=== PATIENT | female | born 1980 | race Caucasian/White ===

== ENCOUNTER 2017-01-10 16:34 | Emergency (ER) | payer BC ==
[~2017-01-10] VITALS: Wt 68.0 kg
[~2017-01-10 16:34] MED LIST: ACETAMINOPHEN-H1 TA2 PO; ANAPROX DS550 MG PO; ATARAX,VISTARIL50 MG PO; AZELASTINE HYDRO6 M1 OP; BACTROBAN OINT22 GM PO; BENADRYL50 MG PO; BENTYL10 MG PO; CIPRO250 MG PO; CIPROFLOXACIN500 MG PO; CLINDAMYCIN HC300 MG PO; CLINDAMYCIN300 MG; CYCLOBENZAPRINE5 M3 PO; DARVOCET N 1001 TAB PO; DAYPRO600 M1 PO; FIORICET 325 MG1 TAB PO; FLOMAX0.4 MG PO; Fioricet 325 MG1 TAB PO; Fiorinal,Butalb1 TAB PO; GABAPENTIN400 MG PO; HYDROCODONE BIT1 T11 PO; K-TAB20 MEQ PO; KEFLEX500 MG PO; NORCET 500 MG-51 CAP PO; NORCO 5-325 TA1 EACH PO; NORVASC10 MG PO; NORVASC5 MG PO; Orphenadrine C100 MG PO; PAXIL10 MG PO; PAXIL20 MG PO; PAXIL30 M2 PO; PAXIL40 MG PO; PERCOCET 325 MG1 TA2 PO; PREDNICOT20 MG PO; PREDNISONE10 MG PO; PREDNISONE20 MG PO; ROBAXIN500 M1 PO; TESSALON PERLE200 MG PO; TYLENOL W/CODEI1 TA2 PO; TYLENOL500 MG PO; VALTREX500 MG PO; VIBRAMYCIN100 MG PO; VICODIN 5/500 505 MG PO; VICODIN ES 7501 TAB PO; VIVITROL380 MG PO; ZITHROMAX Z PA250 MG PO; ZOFRAN ODT4 MG SL; ZOFRAN4 MG PO; ZOVIRAX800 MG PO
[2017-01-10 16:50] VITALS: BP 166/97
[2017-01-10] MEDS ORDERED: CIPRO500 MG PO (17:42)
[2017-01-10] MEDS ORDERED: HYDROCODONE BIT1 T11 PO (17:42)
== END 2017-01-10 17:52 | disposition home or self-care (01) ==
LOC: ED 16:34
DX: S71.111A Laceration without foreign body, right thigh, initial encounter (principal); F17.200 Nicotine dependence, unspecified, uncomplicated; Z98.890 Other specified postprocedural states; Z88.0 Allergy status to penicillin; Z88.2 Allergy status to sulfonamides; Z88.6 Allergy status to analgesic agent; Z88.5 Allergy status to narcotic agent; W26.0XXA Contact with knife, initial encounter; Y93.89 Activity, other specified; Y92.89 Other specified places as the place of occurrence of the external cause; Y99.9 Unspecified external cause status

== ENCOUNTER 2017-01-14 22:22 | Emergency (ER) | payer BC ==
[~2017-01-14] VITALS: Ht 170.1 cm; Wt 68.0 kg
[~2017-01-14 22:22] MED LIST changes: +CIPRO500 MG PO
[2017-01-14 22:26] VITALS: BP 151/84
[2017-01-14 23:32] LABS: BASO % 0.2 % (0.0-1.0); EOS # 0.1 10*3/uL (0.0-0.4); EOS % 0.9 % (1.0-4.0); HEMATOCRIT 34.2 % (37.0-47.0); HEMOGLOBIN 11.1 g/dl (12.0-16.0); IG # 0.1 10*3/uL (0.0-0.1); LYMPH # 3.4 10*3/uL (1.3-4.4); LYMPH % 26.2 % (27.0-41.0); MEAN CELL VOLUME 92.2 fl (81.0-99.0); MEAN CORPUSCULAR HGB 29.9 pg (27.0-31.0); MEAN CORPUSCULAR HGB CONC 32.5 g/dl (33.0-37.0); MEAN PLATELET VOLUME 10.1 fl (9.6-12.3); MONO # 0.9 10*3/uL (0.1-1.0); MONO % 7.1 % (3.0-9.0); NEUT # 8.4 10*3/uL (2.3-7.9); NEUT % 65.2 % (47.0-73.0); PLATELET COUNT AUTOMATED 390 10*3/uL (130-400); RED BLOOD COUNT 3.71 10*6/uL (4.10-5.10); RED CELL DISTRI WIDTH 15.2 % (0-14.5); WHITE BLOOD COUNT 12.8 10*3/uL (4.8-10.8)
[2017-01-14 23:48] LABS: ALBUMIN 4.1 gm/dl (3.1-4.5); ALKALINE PHOSPHATASE 69 U/L (45-117); BILIRUBIN, TOTAL 0.2 mg/dl (0.2-1.0); BUN 7 mg/dl (7-24); CARBON DIOXIDE 26 mmol/L (21-32); CHLORIDE 105 mmol/L (98-107); EST GLOM FILT AFRICAN AMERICAN > 60 ml/min; GLUCOSE 88 mg/dL (65-99); POTASSIUM 3.8 mmol/L (3.5-5.1); SGOT/AST 36 IU/L (3-35); SGPT/ALT 32 U/L (12-78); SODIUM 143 mmol/L (136-145); TOTAL PROTEIN 8.2 gm/dL (6.4-8.2)
[2017-01-15] MEDS ORDERED: CLINDAMYCIN HC300 MG PO (01:07)
[2017-01-15] MEDS ORDERED: HYDROCODONE BIT1 T11 PO (01:07)
[2017-01-15 01:30] LABS: LA>2 REFLEX 2 HR DRAW NOW
== END 2017-01-15 01:59 | disposition home or self-care (01) ==
LOC: ED 22:22
PROVIDERS: Physician Assistant
DX: S70.11XA Contusion of right thigh, initial encounter (principal); L02.415 Cutaneous abscess of right lower limb; F17.200 Nicotine dependence, unspecified, uncomplicated; Z88.0 Allergy status to penicillin; Z88.2 Allergy status to sulfonamides; Z88.6 Allergy status to analgesic agent; Z88.8 Allergy status to other drugs, medicaments and biological substances; X58.XXXA Exposure to other specified factors, initial encounter; Y93.89 Activity, other specified; Y92.89 Other specified places as the place of occurrence of the external cause; Y99.9 Unspecified external cause status

== ENCOUNTER → 2017-01-20 | Outpatient (CLI) | payer BC ==
[~2017-01-20] MED LIST changes: +DOXYCYCLINE100 M3 PO; +KEFLEX500 M1 PO; +PERCOCET 325 MG1 TA5 PO
[2017-01-20 17:49] LABS: BASO # 0.1 10*3/uL (0.0-0.1); BASO % 0.3 % (0.0-1.0); EOS # 0.1 10*3/uL (0.0-0.4); EOS % 0.3 % (1.0-4.0); HEMATOCRIT 33.3 % (37.0-47.0); HEMOGLOBIN 10.8 g/dl (12.0-16.0); IG # 0.1 10*3/uL (0.0-0.1); LYMPH # 3.5 10*3/uL (1.3-4.4); LYMPH % 20.7 % (27.0-41.0); MEAN CELL VOLUME 92.5 fl (81.0-99.0); MEAN CORPUSCULAR HGB CONC 32.4 g/dl (33.0-37.0); MEAN PLATELET VOLUME 9.1 fl (9.6-12.3); MONO # 1.1 10*3/uL (0.1-1.0); MONO % 6.8 % (3.0-9.0); NEUT % 71.4 % (47.0-73.0); PLATELET COUNT AUTOMATED 447 10*3/uL (130-400); RED CELL DISTRI WIDTH 14.7 % (0-14.5); WHITE BLOOD COUNT 16.8 10*3/uL (4.8-10.8)
== END | disposition home or self-care (01) ==
LOC: LAB 17:29
PROVIDERS: Family Medicine
DX: S71.131A Puncture wound without foreign body, right thigh, initial encounter (principal); X58.XXXA Exposure to other specified factors, initial encounter; Y93.89 Activity, other specified; Y92.89 Other specified places as the place of occurrence of the external cause; Y99.8 Other external cause status

== ENCOUNTER 2017-01-21 12:50 | Inpatient (IN) | payer BC ==
[~2017-01-21] VITALS: Ht 170.2 cm; Wt 75.4 kg
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
[~2017-01-21 12:50] MED LIST changes: -DOXYCYCLINE100 M3 PO; -KEFLEX500 M1 PO; -PERCOCET 325 MG1 TA5 PO
[2017-01-21 13:00] VITALS: BP 133/90
[2017-01-21 14:03] LABS: BASO # 0.1 10*3/uL (0.0-0.1); BASO % 0.5 % (0.0-1.0); EOS # 0.1 10*3/uL (0.0-0.4); EOS % 0.6 % (1.0-4.0); HEMOGLOBIN 10.4 g/dl (12.0-16.0); IG # 0.1 10*3/uL (0.0-0.1); LYMPH # 3.6 10*3/uL (1.3-4.4); LYMPH % 24.5 % (27.0-41.0); MEAN CELL VOLUME 94.3 fl (81.0-99.0); MEAN CORPUSCULAR HGB 29.7 pg (27.0-31.0); MEAN CORPUSCULAR HGB CONC 31.5 g/dl (33.0-37.0); MEAN PLATELET VOLUME 9.5 fl (9.6-12.3); MONO % 6.7 % (3.0-9.0); NEUT % 67.4 % (47.0-73.0); PLATELET COUNT AUTOMATED 421 10*3/uL (130-400); RED CELL DISTRI WIDTH 14.8 % (0-14.5); WHITE BLOOD COUNT 14.8 10*3/uL (4.8-10.8)
[2017-01-21 14:16] LABS: ALBUMIN 3.8 gm/dl (3.1-4.5); ALKALINE PHOSPHATASE 67 U/L (45-117); BILIRUBIN, TOTAL 0.2 mg/dl (0.2-1.0); BUN 16 mg/dl (7-24); CARBON DIOXIDE 24 mmol/L (21-32); CHLORIDE 107 mmol/L (98-107); EST GLOM FILT AFRICAN AMERICAN > 60 ml/min; GLUCOSE 91 mg/dL (65-99); POTASSIUM 3.7 mmol/L (3.5-5.1); SGOT/AST 17 IU/L (3-35); SGPT/ALT 20 U/L (12-78); SODIUM 138 mmol/L (136-145); TOTAL PROTEIN 7.7 gm/dL (6.4-8.2)
[2017-01-21 16:00] VITALS: BP 138/73
[2017-01-21 20:00] VITALS: BP 127/71
[2017-01-22] VITALS: BP 126/69
[2017-01-22 06:07] LABS: BASO % 0.6 % (0.0-1.0); EOS # 0.2 10*3/uL (0.0-0.4); EOS % 2.7 % (1.0-4.0); HEMATOCRIT 31.8 % (37.0-47.0); HEMOGLOBIN 9.9 g/dl (12.0-16.0); LYMPH # 2.8 10*3/uL (1.3-4.4); LYMPH % 38.5 % (27.0-41.0); MEAN CELL VOLUME 96.4 fl (81.0-99.0); MEAN CORPUSCULAR HGB CONC 31.1 g/dl (33.0-37.0); MEAN PLATELET VOLUME 9.7 fl (9.6-12.3); MONO # 0.9 10*3/uL (0.1-1.0); NEUT # 3.3 10*3/uL (2.3-7.9); NEUT % 45.8 % (47.0-73.0); PLATELET COUNT AUTOMATED 391 10*3/uL (130-400); WHITE BLOOD COUNT 7.2 10*3/uL (4.8-10.8)
[2017-01-22 06:32] LABS: BUN 16 mg/dl (7-24); CARBON DIOXIDE 28 mmol/L (21-32); CHLORIDE 112 mmol/L (98-107); EST GLOM FILT AFRICAN AMERICAN > 60 ml/min; GLUCOSE 93 mg/dL (65-99); MAGNESIUM 1.8 mg/dL (1.5-2.1); PHOSPHOROUS 2.8 mg/dL (2.5-4.9); POTASSIUM 4.5 mmol/L (3.5-5.1); SGOT/AST 12 IU/L (3-35); SGPT/ALT 16 U/L (12-78); SODIUM 145 mmol/L (136-145)
[2017-01-22 06:40] LABS: ALKALINE PHOSPHATASE 54 U/L (45-117); FREE T4 0.69 ng/dl (0.76-1.46); THYROID STIM HORMONE (HS) 0.608 uIU/ml (0.358-4.75); TOTAL PROTEIN 6.2 gm/dL (6.4-8.2)
[2017-01-22 06:43] LABS: BILIRUBIN, TOTAL < 0.1 mg/dl (0.2-1.0)
[2017-01-22 06:56] LABS: INTERNATIONAL NORM RATIO 0.9 (2.0-3.5)
[2017-01-22 08:00] VITALS: BP 116/54
[2017-01-22 08:43] LABS: VITAMIN D, 25-HYDROXY 68.4 ng/mL (30-100)
[2017-01-22 08:44] LABS: FOLIC ACID 5.51 ng/mL (>5.38)
[2017-01-22 12:00] VITALS: BP 127/70
[2017-01-22] MEDS ORDERED: HYDROCODONE BIT1 T11 PO (12:51)
[2017-01-22] MEDS ORDERED: DOXYCYCLINE100 M3 PO (12:51)
[2017-01-22] MEDS ORDERED: KEFLEX500 M1 PO (12:51)
[2017-01-22] MEDS ORDERED: PERCOCET 325 MG1 TA5 PO (12:54)
== END 2017-01-22 13:20 | disposition home or self-care (01) | DRG 872 ==
LOC: 4E 12:50
PROVIDERS: Internal Medicine
DX: A41.9 Sepsis, unspecified organism (principal); L03.113 Cellulitis of right upper limb; D64.9 Anemia, unspecified; F17.200 Nicotine dependence, unspecified, uncomplicated; G89.29 Other chronic pain; X58.XXXA Exposure to other specified factors, initial encounter; M54.9 Dorsalgia, unspecified; S71.111D Laceration without foreign body, right thigh, subsequent encounter; Z88.0 Allergy status to penicillin; Z88.2 Allergy status to sulfonamides; Z79.899 Other long term (current) drug therapy; Z88.6 Allergy status to analgesic agent; Z88.8 Allergy status to other drugs, medicaments and biological substances; Y93.89 Activity, other specified; Y92.89 Other specified places as the place of occurrence of the external cause; Y99.9 Unspecified external cause status

== ENCOUNTER 2017-01-27 20:10 | Inpatient (IN) | payer BC ==
[~2017-01-27] VITALS: Ht 167.6 cm; Wt 74.0 kg
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
[~2017-01-27 20:10] MED LIST changes: -IBU800 MG PO
[2017-01-27 20:42] VITALS: BP 151/99
[2017-01-27 21:12] LABS: BASO % 0.2 % (0.0-1.0); EOS # 0.1 10*3/uL (0.0-0.4); EOS % 0.3 % (1.0-4.0); HEMATOCRIT 33.9 % (37.0-47.0); IG # 0.1 10*3/uL (0.0-0.1); LYMPH # 3.6 10*3/uL (1.3-4.4); LYMPH % 21.8 % (27.0-41.0); MEAN CELL VOLUME 92.1 fl (81.0-99.0); MEAN CORPUSCULAR HGB 29.9 pg (27.0-31.0); MEAN CORPUSCULAR HGB CONC 32.4 g/dl (33.0-37.0); MEAN PLATELET VOLUME 9.7 fl (9.6-12.3); MONO # 1.1 10*3/uL (0.1-1.0); MONO % 6.4 % (3.0-9.0); NEUT # 11.8 10*3/uL (2.3-7.9); PLATELET COUNT AUTOMATED 491 10*3/uL (130-400); RED BLOOD COUNT 3.68 10*6/uL (4.10-5.10); RED CELL DISTRI WIDTH 14.7 % (0-14.5); WHITE BLOOD COUNT 16.6 10*3/uL (4.8-10.8)
[2017-01-27 21:29] LABS: ALBUMIN 4.2 gm/dl (3.1-4.5); ALKALINE PHOSPHATASE 69 U/L (45-117); BILIRUBIN, TOTAL 0.2 mg/dl (0.2-1.0); BUN 10 mg/dl (7-24); CARBON DIOXIDE 24 mmol/L (21-32); CHLORIDE 105 mmol/L (98-107); EST GLOM FILT AFRICAN AMERICAN > 60 ml/min; GLUCOSE 83 mg/dL (65-99); POTASSIUM 3.5 mmol/L (3.5-5.1); SGOT/AST 12 IU/L (3-35); SGPT/ALT 16 U/L (12-78); SODIUM 139 mmol/L (136-145); TOTAL PROTEIN 8.2 gm/dL (6.4-8.2)
[2017-01-27 22:33] VITALS: BP 128/67
[2017-01-27 23:38] VITALS: BP 118/74
[2017-01-28 07:10] LABS: BASO % 0.4 % (0.0-1.0); EOS # 0.2 10*3/uL (0.0-0.4); EOS % 1.7 % (1.0-4.0); HEMATOCRIT 34.5 % (37.0-47.0); HEMOGLOBIN 10.9 g/dl (12.0-16.0); LYMPH # 2.6 10*3/uL (1.3-4.4); LYMPH % 26.2 % (27.0-41.0); MEAN CELL VOLUME 93.5 fl (81.0-99.0); MEAN CORPUSCULAR HGB 29.5 pg (27.0-31.0); MEAN CORPUSCULAR HGB CONC 31.6 g/dl (33.0-37.0); MEAN PLATELET VOLUME 9.7 fl (9.6-12.3); MONO % 10.1 % (3.0-9.0); NEUT % 61.2 % (47.0-73.0); PLATELET COUNT AUTOMATED 454 10*3/uL (130-400); RED BLOOD COUNT 3.69 10*6/uL (4.10-5.10); RED CELL DISTRI WIDTH 14.7 % (0-14.5); WHITE BLOOD COUNT 9.7 10*3/uL (4.8-10.8)
[2017-01-28 07:43] LABS: ALBUMIN 3.4 gm/dl (3.1-4.5); ALKALINE PHOSPHATASE 63 U/L (45-117); BILIRUBIN, TOTAL 0.3 mg/dl (0.2-1.0); BUN 8 mg/dl (7-24); CARBON DIOXIDE 26 mmol/L (21-32); CHLORIDE 108 mmol/L (98-107); EST GLOM FILT AFRICAN AMERICAN > 60 ml/min; GLUCOSE 87 mg/dL (65-99); MAGNESIUM 1.9 mg/dL (1.5-2.1); PHOSPHOROUS 2.8 mg/dL (2.5-4.9); POTASSIUM 3.9 mmol/L (3.5-5.1); SGOT/AST 15 IU/L (3-35); SGPT/ALT 15 U/L (12-78); SODIUM 138 mmol/L (136-145)
[2017-01-28 07:54] LABS: PROTHROMBIN TIME 10.6 SECONDS (9.0-12.4)
[2017-01-28 08:00] VITALS: BP 119/68
[2017-01-28 12:00] VITALS: BP 125/56
[2017-01-28 16:00] VITALS: BP 134/72
[2017-01-28] MEDS ORDERED: KEFLEX500 M1 PO (17:05)
[2017-01-28] MEDS ORDERED: DOXYCYCLINE100 M3 PO (17:05)
[2017-01-28 20:00] VITALS: BP 121/61
[2017-01-29] VITALS: BP 126/71
[2017-01-29 08:00] VITALS: BP 120/69
[2017-01-29] MEDS ORDERED: IBU800 MG PO (10:38)
== END 2017-01-29 11:24 | disposition home or self-care (01) | DRG 872 ==
LOC: ED 20:10 → EDHOLD 22:14 → 5E 22:14
PROVIDERS: Nurse Practitioner Family; Student in an Organized Health Care Education/Training Program
DX: A41.9 Sepsis, unspecified organism (principal); L97.919 Non-pressure chronic ulcer of unspecified part of right lower leg with unspecified severity; B02.30 Zoster ocular disease, unspecified; L03.115 Cellulitis of right lower limb; S81.819A Laceration without foreign body, unspecified lower leg, initial encounter; D64.9 Anemia, unspecified; F17.210 Nicotine dependence, cigarettes, uncomplicated; B95.61 Methicillin susceptible Staphylococcus aureus infection as the cause of diseases classified elsewhere; D47.3 Essential (hemorrhagic) thrombocythemia; M54.16 Radiculopathy, lumbar region; W26.8XXA Contact with other sharp object(s), not elsewhere classified, initial encounter; Y93.89 Activity, other specified; Y92.89 Other specified places as the place of occurrence of the external cause; Y99.8 Other external cause status; Z71.6 Tobacco abuse counseling; Z88.6 Allergy status to analgesic agent; Z87.442 Personal history of urinary calculi; Z88.0 Allergy status to penicillin; Z88.2 Allergy status to sulfonamides; Z88.5 Allergy status to narcotic agent; Z79.899 Other long term (current) drug therapy

== ENCOUNTER → 2017-01-27 | Outpatient (CLI) | payer BC ==
[~2017-01-27] MED LIST changes: +DOXYCYCLINE100 M3 PO; +IBU800 MG PO; +KEFLEX500 M1 PO; +PERCOCET 325 MG1 TA5 PO
[2017-01-27 15:05] LABS: HEMOGLOBIN 11.2 g/dl (12.0-16.0); MEAN CELL VOLUME 92.1 fl (81.0-99.0); MEAN CORPUSCULAR HGB 29.5 pg (27.0-31.0); MEAN PLATELET VOLUME 9.2 fl (9.6-12.3); RED BLOOD COUNT 3.8 10*6/uL (4.10-5.10)
[2017-01-27 15:20] LABS: ALBUMIN 4.2 gm/dl (3.1-4.5); ALKALINE PHOSPHATASE 69 U/L (45-117); BILIRUBIN, DIRECT < 0.1 mg/dL (0.0-0.2); BILIRUBIN, TOTAL 0.2 mg/dl (0.2-1.0); BUN 12 mg/dl (7-24); CARBON DIOXIDE 26 mmol/L (21-32); CHLORIDE 108 mmol/L (98-107); EST GLOM FILT AFRICAN AMERICAN > 60 ml/min; GLUCOSE 85 mg/dL (65-99); POTASSIUM 4.3 mmol/L (3.5-5.1); SGOT/AST 14 IU/L (3-35); SGPT/ALT 17 U/L (12-78); SODIUM 142 mmol/L (136-145); TOTAL PROTEIN 8.2 gm/dL (6.4-8.2)
== END | disposition home or self-care (01) ==
LOC: LAB 14:46
PROVIDERS: Family Medicine
DX: L03.115 Cellulitis of right lower limb (principal)

== ENCOUNTER 2017-02-24 11:35 | Emergency (ER) | payer BC ==
[~2017-02-24] VITALS: Ht 167.6 cm; Wt 68.0 kg
[~2017-02-24 11:35] MED LIST changes: +IBU800 MG PO
[2017-02-24 11:42] VITALS: BP 125/71
[2017-02-24] MEDS ORDERED: CLINDAMYCIN150 MG PO (11:42)
[2017-02-24 12:15] LABS: BILIRUBIN NEGATIVE (NEGATIVE); BLOOD 3+ (NEGATIVE); CLARITY SL CLOUDY (CLEAR); COLOR RED (YELLOW); GLUCOSE NEGATIVE (NEGATIVE); KETONE NEGATIVE (NEGATIVE); LEUKO ESTERASE NEGATIVE (NEGATIVE); NITRITE NEGATIVE (NEGATIVE); PH 6.5 (5.0-9.0); PROTEIN NEGATIVE (NEGATIVE); SPECIFIC GRAVITY <= 1.005 (1.005-1.030); UROBILINOGEN 0.2 E.U./dl (0.2-1.0)
[2017-02-24 12:24] LABS: RBC TNTC rbc/hpf (0-2); URINE REFLEX COMMENT YES (NO)
[2017-02-24 12:28] LABS: BASO % 0.4 % (0.0-1.0); EOS % 0.2 % (1.0-4.0); HEMATOCRIT 34.6 % (37.0-47.0); HEMOGLOBIN 11.1 g/dl (12.0-16.0); LYMPH # 2.7 10*3/uL (1.3-4.4); LYMPH % 24.5 % (27.0-41.0); MEAN CELL VOLUME 90.6 fl (81.0-99.0); MEAN CORPUSCULAR HGB 29.1 pg (27.0-31.0); MEAN CORPUSCULAR HGB CONC 32.1 g/dl (33.0-37.0); MEAN PLATELET VOLUME 9.5 fl (9.6-12.3); MONO # 0.5 10*3/uL (0.1-1.0); MONO % 4.3 % (3.0-9.0); NEUT # 7.9 10*3/uL (2.3-7.9); NEUT % 70.2 % (47.0-73.0); PLATELET COUNT AUTOMATED 421 10*3/uL (130-400); RED BLOOD COUNT 3.82 10*6/uL (4.10-5.10); RED CELL DISTRI WIDTH 14.1 % (0-14.5); WHITE BLOOD COUNT 11.2 10*3/uL (4.8-10.8)
[2017-02-24 12:40] LABS: URINE AMPHETAMINES < 1000 (1000ng/ml); URINE BARBITURATES < 200 (200ng/ml); URINE COCAINE < 300 (300ng/ml)
[2017-02-24 12:42] LABS: ALBUMIN 4.1 gm/dl (3.1-4.5); ALKALINE PHOSPHATASE 62 U/L (45-117); BILIRUBIN, TOTAL 0.2 mg/dl (0.2-1.0); BUN 9 mg/dl (7-24); CARBON DIOXIDE 26 mmol/L (21-32); CHLORIDE 111 mmol/L (98-107); EST GLOM FILT AFRICAN AMERICAN > 60 ml/min; GLUCOSE 89 mg/dL (65-99); POTASSIUM 3.8 mmol/L (3.5-5.1); SGOT/AST 12 IU/L (3-35); SGPT/ALT 15 U/L (12-78); SODIUM 142 mmol/L (136-145); TOTAL PROTEIN 8.1 gm/dL (6.4-8.2)
== END 2017-02-24 14:25 | disposition home or self-care (01) ==
LOC: ED 11:35
PROVIDERS: Registered Nurse
DX: R31.9 Hematuria, unspecified (principal); R10.30 Lower abdominal pain, unspecified; F17.200 Nicotine dependence, unspecified, uncomplicated; Z87.442 Personal history of urinary calculi; Z88.0 Allergy status to penicillin; Z88.2 Allergy status to sulfonamides; Z88.6 Allergy status to analgesic agent; Z88.8 Allergy status to other drugs, medicaments and biological substances

== ENCOUNTER 2017-03-12 13:26 | Emergency (ER) | payer BC ==
[~2017-03-12] VITALS: Wt 68.0 kg
[~2017-03-12 13:26] MED LIST changes: +CLINDAMYCIN150 MG PO
[2017-03-12 14:15] VITALS: BP 93/67
[2017-03-12 14:40] LABS: BASO % 0.4 % (0.0-1.0); EOS % 0.2 % (1.0-4.0); HEMATOCRIT 32.1 % (37.0-47.0); HEMOGLOBIN 10.2 g/dl (12.0-16.0); LYMPH % 21.2 % (27.0-41.0); MEAN CELL VOLUME 92.2 fl (81.0-99.0); MEAN CORPUSCULAR HGB 29.3 pg (27.0-31.0); MEAN CORPUSCULAR HGB CONC 31.8 g/dl (33.0-37.0); MEAN PLATELET VOLUME 9.2 fl (9.6-12.3); MONO # 0.8 10*3/uL (0.1-1.0); MONO % 8.6 % (3.0-9.0); NEUT # 6.6 10*3/uL (2.3-7.9); NEUT % 69.3 % (47.0-73.0); PLATELET COUNT AUTOMATED 371 10*3/uL (130-400); RED BLOOD COUNT 3.48 10*6/uL (4.10-5.10); RED CELL DISTRI WIDTH 14.4 % (0-14.5); WHITE BLOOD COUNT 9.5 10*3/uL (4.8-10.8)
[2017-03-12 14:55] LABS: BUN 10 mg/dl (7-24); CARBON DIOXIDE 20 mmol/L (21-32); CHLORIDE 114 mmol/L (98-107); EST GLOM FILT AFRICAN AMERICAN > 60 ml/min; GLUCOSE 87 mg/dL (65-99); POTASSIUM 3.2 mmol/L (3.5-5.1); SODIUM 146 mmol/L (136-145)
[2017-03-12 15:12] LABS: BILIRUBIN NEGATIVE (NEGATIVE); BLOOD TRACE-LYSED (NEGATIVE); CLARITY CLEAR (CLEAR); COLOR YELLOW (YELLOW); GLUCOSE NEGATIVE (NEGATIVE); KETONE NEGATIVE (NEGATIVE); LEUKO ESTERASE NEGATIVE (NEGATIVE); NITRITE NEGATIVE (NEGATIVE); PROTEIN NEGATIVE (NEGATIVE); SPECIFIC GRAVITY <= 1.005 (1.005-1.030); UROBILINOGEN 0.2 E.U./dl (0.2-1.0)
[2017-03-12 15:21] LABS: BACTERIA TRACE; URINE AMPHETAMINES < 1000 (1000ng/ml); URINE BARBITURATES < 200 (200ng/ml); URINE COCAINE < 300 (300ng/ml); URINE REFLEX COMMENT NO (NO)
== END 2017-03-12 15:51 ==
LOC: ED 13:26
PROVIDERS: Emergency Medicine
DX: Z00.8 Encounter for other general examination (principal); Z88.0 Allergy status to penicillin; Z88.2 Allergy status to sulfonamides; Z88.6 Allergy status to analgesic agent; Z88.8 Allergy status to other drugs, medicaments and biological substances

== ENCOUNTER 2018-07-05 10:22 | Emergency (ER) | payer BC ==
[~2018-07-05] VITALS: Ht 170.1 cm; Wt 68.0 kg
[2018-07-05 10:24] VITALS: BP 162/83
== END 2018-07-05 11:06 | disposition left against medical advice (07) ==
LOC: ED 10:22
DX: S00.11XA Contusion of right eyelid and periocular area, initial encounter (principal); Z88.0 Allergy status to penicillin; Z88.2 Allergy status to sulfonamides; Z79.82 Long term (current) use of aspirin; Z88.5 Allergy status to narcotic agent; Z88.6 Allergy status to analgesic agent; Z79.899 Other long term (current) drug therapy; Y04.0XXA Assault by unarmed brawl or fight, initial encounter; Y93.89 Activity, other specified; Y92.89 Other specified places as the place of occurrence of the external cause; Y99.8 Other external cause status

== ENCOUNTER 2018-08-18 10:22 | Emergency (ER) | payer BC, OTHER ==
[~2018-08-18] VITALS: Ht 170.1 cm; Wt 68.0 kg
[2018-08-18 10:24] VITALS: BP 148/78
[2018-08-18] MEDS ORDERED: LIDEX 0.05% CRE15 GM T (10:41)
== END 2018-08-18 11:05 | disposition home or self-care (01) ==
LOC: ED 10:22
DX: L30.9 Dermatitis, unspecified (principal); M54.2 Cervicalgia; F17.200 Nicotine dependence, unspecified, uncomplicated; Z88.0 Allergy status to penicillin; Z88.2 Allergy status to sulfonamides; Z88.6 Allergy status to analgesic agent; Z88.8 Allergy status to other drugs, medicaments and biological substances

== ENCOUNTER 2018-09-06 07:55 | Emergency (ER) | payer BC, OTHER ==
[~2018-09-06] VITALS: Ht 170.1 cm; Wt 68.0 kg
[2018-09-06 07:55] VITALS: BP 121/62
[~2018-09-06 07:55] MED LIST changes: +LIDEX 0.05% CRE15 GM T
[2018-09-06] MEDS ORDERED: CHANTIX1 M1 PO (08:17)
[2018-09-06] MEDS ORDERED: TEMOVATE30 GM T (08:17)
== END 2018-09-06 08:30 | disposition home or self-care (01) ==
LOC: ED 07:55
DX: L30.9 Dermatitis, unspecified (principal); F17.210 Nicotine dependence, cigarettes, uncomplicated; Z88.2 Allergy status to sulfonamides; Z88.6 Allergy status to analgesic agent; Z88.0 Allergy status to penicillin; Z88.8 Allergy status to other drugs, medicaments and biological substances; Z88.5 Allergy status to narcotic agent; Z79.899 Other long term (current) drug therapy

== ENCOUNTER 2018-12-27 15:44 | Emergency (ER) | payer OTHER ==
[~2018-12-27] VITALS: Ht 167.6 cm; Wt 63.5 kg
[~2018-12-27 15:44] MED LIST changes: +CHANTIX1 M1 PO; +TEMOVATE30 GM T
[2018-12-27 16:11] LABS: BASO # 0.1 10*3/uL (0.0-0.1); BASO % 0.4 % (0.0-1.0); EOS # 0.1 10*3/uL (0.0-0.4); EOS % 0.7 % (1.0-4.0); HEMOGLOBIN 10.5 g/dl (12.0-16.0); LYMPH # 4.3 10*3/uL (1.3-4.4); LYMPH % 30.4 % (27.0-41.0); MEAN CELL VOLUME 82.7 fl (81.0-99.0); MEAN CORPUSCULAR HGB 25.5 pg (27.0-31.0); MEAN CORPUSCULAR HGB CONC 30.9 g/dl (33.0-37.0); MEAN PLATELET VOLUME 9.8 fl (9.6-12.3); MONO # 0.9 10*3/uL (0.1-1.0); MONO % 6.4 % (3.0-9.0); NEUT # 8.6 10*3/uL (2.3-7.9); NEUT % 61.7 % (47.0-73.0); PLATELET COUNT AUTOMATED 421 10*3/uL (130-400); RED BLOOD COUNT 4.11 10*6/uL (4.10-5.10); RED CELL DISTRI WIDTH 19.8 % (0-14.5)
[2018-12-27 16:19] LABS: ACT PARTIAL THROMBO TIME 21.7 SECONDS (20.8-31.5)
[2018-12-27 16:31] LABS: BUN 10 mg/dl (7-24); CHLORIDE 105 mmol/L (98-107); SODIUM 142 mmol/L (136-145)
[2018-12-27 16:42] LABS: THYROID STIM HORMONE (HS) 0.938 uIU/ml (0.358-4.75)
[2018-12-27 18:09] VITALS: BP 118/70
[2018-12-27 18:15] LABS: BILIRUBIN NEGATIVE (NEGATIVE); BLOOD NEGATIVE (NEGATIVE); CLARITY CLOUDY (CLEAR); COLOR YELLOW (YELLOW); GLUCOSE NEGATIVE (NEGATIVE); KETONE NEGATIVE (NEGATIVE); LEUKO ESTERASE NEGATIVE (NEGATIVE); NITRITE NEGATIVE (NEGATIVE); UROBILINOGEN 0.2 E.U./dl (0.2-1.0)
[2018-12-27 18:21] LABS: BACTERIA 1+; EPITHELIAL CELLS 31-40
== END 2018-12-27 19:47 | disposition home or self-care (01) ==
LOC: ED 15:44
PROVIDERS: Emergency Medicine
DX: R51 Headache (principal); H53.8 Other visual disturbances; E87.6 Hypokalemia; F17.200 Nicotine dependence, unspecified, uncomplicated; Z98.890 Other specified postprocedural states; Z88.0 Allergy status to penicillin; Z88.2 Allergy status to sulfonamides; Z88.6 Allergy status to analgesic agent; Z88.8 Allergy status to other drugs, medicaments and biological substances; Z79.899 Other long term (current) drug therapy

== ENCOUNTER 2019-01-18 12:03 | Emergency (ER) | payer OTHER ==
[~2019-01-18] VITALS: Ht 167.6 cm; Wt 68.0 kg
[2019-01-18 13:30] VITALS: BP 132/69
== END 2019-01-18 13:45 | disposition left against medical advice (07) ==
LOC: ED 12:03
DX: R51 Headache (principal); F17.200 Nicotine dependence, unspecified, uncomplicated; Z88.0 Allergy status to penicillin; Z88.2 Allergy status to sulfonamides; Z88.6 Allergy status to analgesic agent; Z88.8 Allergy status to other drugs, medicaments and biological substances

== ENCOUNTER 2019-03-17 19:30 | Emergency (ER) | payer OTHER ==
[~2019-03-17] VITALS: Ht 170.1 cm; Wt 68.0 kg
[2019-03-17 20:00] LABS: BASO # 0.1 10*3/uL (0.0-0.1); BASO % 0.6 % (0.0-1.0); EOS # 0.4 10*3/uL (0.0-0.4); EOS % 3.6 % (1.0-4.0); HEMOGLOBIN 10.1 g/dl (12.0-16.0); LYMPH # 3.4 10*3/uL (1.3-4.4); LYMPH % 28.8 % (27.0-41.0); MEAN CELL VOLUME 86.8 fl (81.0-99.0); MEAN CORPUSCULAR HGB 26.6 pg (27.0-31.0); MEAN CORPUSCULAR HGB CONC 30.6 g/dl (33.0-37.0); MEAN PLATELET VOLUME 9.9 fl (9.6-12.3); MONO # 1.2 10*3/uL (0.1-1.0); MONO % 9.6 % (3.0-9.0); NEUT # 6.8 10*3/uL (2.3-7.9); NEUT % 57.1 % (47.0-73.0); PLATELET COUNT AUTOMATED 383 10*3/uL (130-400); RED CELL DISTRI WIDTH 16.8 % (0-14.5); WHITE BLOOD COUNT 11.9 10*3/uL (4.8-10.8)
[2019-03-17 20:10] VITALS: BP 144/65
[2019-03-17 20:15] LABS: ALBUMIN 3.9 gm/dl (3.1-4.5); ALKALINE PHOSPHATASE 65 U/L (45-117); BUN 15 mg/dl (7-24); CHLORIDE 108 mmol/L (98-107); CREATININE 0.81 mg/dL (0.55-1.02); POTASSIUM 3.3 mmol/L (3.5-5.1); SGOT/AST 11 IU/L (3-35); SGPT/ALT 15 U/L (12-78); SODIUM 141 mmol/L (136-145); TOTAL PROTEIN 7.3 gm/dL (6.4-8.2)
[2019-03-17] MEDS ORDERED: Fioricet 325 MG1 TAB PO (22:23)
== END 2019-03-17 22:19 | disposition home or self-care (01) ==
LOC: ED 19:30
PROVIDERS: Emergency Medicine Emergency Medical Services
DX: G43.909 Migraine, unspecified, not intractable, without status migrainosus (principal); R55 Syncope and collapse; R42 Dizziness and giddiness; R41.0 Disorientation, unspecified

== ENCOUNTER 2019-06-24 15:44 | Emergency (ER) | payer OTHER ==
[~2019-06-24] VITALS: Wt 81.6 kg
[2019-06-24 16:38] LABS: BASO % 0.3 % (0.0-1.0); EOS # 0.3 10*3/uL (0.0-0.4); HEMATOCRIT 33.6 % (37.0-47.0); HEMOGLOBIN 10.6 g/dl (12.0-16.0); LYMPH # 3.3 10*3/uL (1.3-4.4); LYMPH % 22.9 % (27.0-41.0); MEAN CELL VOLUME 84.4 fl (81.0-99.0); MEAN CORPUSCULAR HGB 26.6 pg (27.0-31.0); MEAN CORPUSCULAR HGB CONC 31.5 g/dl (33.0-37.0); MEAN PLATELET VOLUME 10.9 fl (9.6-12.3); MONO # 0.9 10*3/uL (0.1-1.0); MONO % 6.1 % (3.0-9.0); NEUT # 9.8 10*3/uL (2.3-7.9); NEUT % 68.3 % (47.0-73.0); PLATELET COUNT AUTOMATED 577 10*3/uL (130-400); RED BLOOD COUNT 3.98 10*6/uL (4.10-5.10); WHITE BLOOD COUNT 14.4 10*3/uL (4.8-10.8)
[2019-06-24 16:47] VITALS: BP 110/52
[2019-06-24 17:17] LABS: ACT PARTIAL THROMBO TIME 24.3 SECONDS (20.0-32.1); INTERNATIONAL NORM RATIO 0.9 (2.0-3.5)
[2019-06-24 17:39] LABS: BILIRUBIN NEGATIVE (NEGATIVE); BLOOD 3+ (NEGATIVE); CLARITY CLOUDY (CLEAR); COLOR YELLOW (YELLOW); GLUCOSE NEGATIVE (NEGATIVE); KETONE TRACE (NEGATIVE); LEUKO ESTERASE NEGATIVE (NEGATIVE); NITRITE NEGATIVE (NEGATIVE); UROBILINOGEN 0.2 E.U./dl (0.2-1.0)
[2019-06-24 17:46] LABS: EPITHELIAL CELLS 41-50; RBC 51-100 rbc/hpf (0-2)
[2019-06-24 18:05] LABS: ALBUMIN 3.2 gm/dl (3.1-4.5); ALKALINE PHOSPHATASE 69 U/L (45-117); BUN 11 mg/dl (7-24); CHLORIDE 108 mmol/L (98-107); CREATININE 0.68 mg/dL (0.55-1.02); LIPASE 103 U/L (73-393); POTASSIUM 3.1 mmol/L (3.5-5.1); SGOT/AST 8 IU/L (3-35); SGPT/ALT 16 U/L (12-78); SODIUM 142 mmol/L (136-145)
[2019-06-24 18:07] LABS: TROPONIN I < 0.015 ng/ml (<0.045)
== END 2019-06-24 19:10 | disposition home or self-care (01) ==
LOC: ED 15:44
PROVIDERS: Physician Assistant
DX: R07.89 Other chest pain (principal); F17.200 Nicotine dependence, unspecified, uncomplicated; Z88.0 Allergy status to penicillin; Z88.2 Allergy status to sulfonamides; Z88.6 Allergy status to analgesic agent; Z88.8 Allergy status to other drugs, medicaments and biological substances

== ENCOUNTER 2019-07-22 00:18 | Emergency (ER) | payer OTHER ==
[~2019-07-22] VITALS: Ht 170.1 cm; Wt 74.8 kg
[2019-07-22 00:21] VITALS: BP 107/65
[2019-07-22 01:38] LABS: BASO % 0.4 % (0.0-1.0); EOS # 0.3 10*3/uL (0.0-0.4); EOS % 2.6 % (1.0-4.0); HEMATOCRIT 29.9 % (37.0-47.0); HEMOGLOBIN 9.2 g/dl (12.0-16.0); LYMPH % 30.5 % (27.0-41.0); MEAN CELL VOLUME 83.3 fl (81.0-99.0); MEAN CORPUSCULAR HGB 25.6 pg (27.0-31.0); MEAN CORPUSCULAR HGB CONC 30.8 g/dl (33.0-37.0); MEAN PLATELET VOLUME 10.5 fl (9.6-12.3); MONO # 0.9 10*3/uL (0.1-1.0); NEUT # 5.7 10*3/uL (2.3-7.9); NEUT % 57.2 % (47.0-73.0); PLATELET COUNT AUTOMATED 433 10*3/uL (130-400); RED BLOOD COUNT 3.59 10*6/uL (4.10-5.10); RED CELL DISTRI WIDTH 15.9 % (0-14.5); WHITE BLOOD COUNT 9.9 10*3/uL (4.8-10.8)
[2019-07-22 01:54] LABS: ALBUMIN 3.6 gm/dl (3.1-4.5); ALKALINE PHOSPHATASE 74 U/L (45-117); BUN 15 mg/dl (7-24); CHLORIDE 110 mmol/L (98-107); CREATININE 0.61 mg/dL (0.55-1.02); LIPASE 91 U/L (73-393); POTASSIUM 3.4 mmol/L (3.5-5.1); SGOT/AST 12 IU/L (3-35); SGPT/ALT 16 U/L (12-78); SODIUM 143 mmol/L (136-145)
[2019-07-22 01:59] LABS: BETA-HCG, QUANT < 1.0 mIU/mL (1-3)
[2019-07-22] MEDS ORDERED: HYDROXYZINE PAM25 MG PO (02:44)
[2019-07-22] MEDS ORDERED: MIRTAZAPINE30 M2 PO (18:09)
[2019-07-22] MEDS ORDERED: ABILIFY5 MG PO (18:09)
[2019-07-23] MEDS ORDERED: NEURONTIN800 MG PO (09:20)
[2019-07-23] MEDS ORDERED: MILK OF MA400 MG/52 PO (09:22)
== END 2019-07-22 03:06 | disposition home or self-care (01) ==
LOC: ED 00:18
PROVIDERS: Emergency Medicine Emergency Medical Services
DX: B80 Enterobiasis (principal); F41.9 Anxiety disorder, unspecified; D50.9 Iron deficiency anemia, unspecified; F17.200 Nicotine dependence, unspecified, uncomplicated; G43.909 Migraine, unspecified, not intractable, without status migrainosus; Z88.0 Allergy status to penicillin; Z88.2 Allergy status to sulfonamides; Z88.6 Allergy status to analgesic agent; Z88.8 Allergy status to other drugs, medicaments and biological substances

== ENCOUNTER 2019-07-22 14:40 | Inpatient (IN) | payer OTHER ==
[~2019-07-22] VITALS: Ht 170.1 cm; Wt 83.0 kg
[~2019-07-22 14:40] MED LIST changes: +HYDROXYZINE PAM25 MG PO
[2019-07-22 14:41] VITALS: BP 130/87
[2019-07-22 15:23] LABS: BASO # 0.1 10*3/uL (0.0-0.1); BASO % 0.6 % (0.0-1.0); EOS # 0.2 10*3/uL (0.0-0.4); EOS % 1.5 % (1.0-4.0); HEMATOCRIT 32.8 % (37.0-47.0); HEMOGLOBIN 9.9 g/dl (12.0-16.0); LYMPH # 3.4 10*3/uL (1.3-4.4); LYMPH % 31.3 % (27.0-41.0); MEAN CELL VOLUME 84.1 fl (81.0-99.0); MEAN CORPUSCULAR HGB 25.4 pg (27.0-31.0); MEAN CORPUSCULAR HGB CONC 30.2 g/dl (33.0-37.0); MEAN PLATELET VOLUME 10.8 fl (9.6-12.3); MONO # 0.7 10*3/uL (0.1-1.0); MONO % 6.6 % (3.0-9.0); NEUT # 6.5 10*3/uL (2.3-7.9); NEUT % 59.5 % (47.0-73.0); PLATELET COUNT AUTOMATED 485 10*3/uL (130-400); RED CELL DISTRI WIDTH 15.9 % (0-14.5); WHITE BLOOD COUNT 10.9 10*3/uL (4.8-10.8)
[2019-07-22 15:52] LABS: ALKALINE PHOSPHATASE 84 U/L (45-117); BUN 12 mg/dl (7-24); CHLORIDE 107 mmol/L (98-107); CREATININE 0.67 mg/dL (0.55-1.02); ETHYL ALCOHOL < 3.0 mg/dl (<3); POTASSIUM 3.4 mmol/L (3.5-5.1); SGOT/AST 8 IU/L (3-35); SGPT/ALT 17 U/L (12-78); SODIUM 139 mmol/L (136-145); TOTAL PROTEIN 7.7 gm/dL (6.4-8.2)
[2019-07-22 16:05] VITALS: BP 124/74
--- NOTE | 2019-07-22 16:11 | NUR ---
PT REMAINS W/O ACUTE DISTRESS NOTED AWAITING ALL RESULTS FOR ADDITIONAL PLAN OF CARE,SAFETY PRECAUTIONS INTACT AND CALL LIGHT WITHIN REACH.VSS AND WILL CONTINUE TO MONITOR.
--- NOTE | 2019-07-22 16:43 | NUR ---
PT RUBBING AND GRABBING NECK MULTIPLE TIMES DURING EVALUATIONS,RED BLANCHABLE AREAS NOTED TO NECK AN UPPER CHEST,NO ITCHING OR RESP DIFFICULTIES NOTED.
--- NOTE | 2019-07-22 16:50 | NUR ---
PT STATING "I STILL CAN'T PEE SO THEY CAN GET IT(URINE)UPSTAIRS". NURSING STAFF MADE AWARE.
--- NOTE | 2019-07-22 17:15 | NUR ---
A 38, admitted to 4E, under the services of FABIANA Rios DO with a diagnosis of SORE THROAT. Chief complaint is SORE THROAT, WORM INFECTION. Patient arrived via ambulatory from ER. Monitor applied. Initial assessment completed. Vital signs taken and recorded. FABIANA RIOS DO notified of admission to the unit. Orders received. See assessment for past medical history, medications and allergies. Patient and/or family oriented to unit. [facility] visitation policy reviewed. Clothing/patient valuable form completed. ANDREA RUIZ
[2019-07-22] MEDS ORDERED: ABILIFY5 MG PO (18:09)
[2019-07-22] MEDS ORDERED: MIRTAZAPINE30 M2 PO (18:09)
[2019-07-22 20:00] VITALS: BP 120/71
--- NOTE | 2019-07-22 21:13 | NUR ---
NORCO GIVEN FOR PAIN AT 06/05. RESTORIL GIVEN PER PATIENT REQUEST FOR INSOMNIA. WILL ASSESS EFFECTIVENESS.
--- NOTE | 2019-07-22 22:10 | NUR ---
NORCO EFFECTIVE PER PATIENT. WILL CONTINUE TO MONITOR.
[2019-07-23] VITALS: BP 122/72
--- NOTE | 2019-07-23 03:14 | NUR ---
NORCO GIVEN PER PATIENT REQUEST FOR HEADACHE RATED 8/10. WILL ASSESS EFFECTIVENESS.
--- NOTE | 2019-07-23 04:48 | NUR ---
PATIENT COMPLAINED OF PAIN BEHINDHER LEFT EYE STATING ITS "THE WORST PAIN SHES EVER EXPERIENCED". PATIENT STATED NORCO WAS NOT EFFECTIVE. NOTIFIED DR BERNSTEIN. ORDERS RECIEVED TO ORDER 1 MG OF DILAUDID NOW.
--- NOTE | 2019-07-23 05:30 | NUR ---
DILAUDID 1MG GIVEN PER DOCTOR ORDER AND PATIENT REQUEST. WILL ASSESS EFFECTIVENESS.
--- NOTE | 2019-07-23 06:21 | NUR ---
PATIENT STATED DILAUDID WAS EFFECTIVE. PATIENT STATED SHE FELT "100 TIMES BETTER." RESTING IN BED. CALL LIGHT WITHIN REACH.
[2019-07-23 06:37] LABS: BASO % 0.1 % (0.0-1.0); HEMATOCRIT 30.2 % (37.0-47.0); HEMOGLOBIN 9.1 g/dl (12.0-16.0); LYMPH % 10.2 % (27.0-41.0); MEAN CELL VOLUME 84.6 fl (81.0-99.0); MEAN CORPUSCULAR HGB 25.5 pg (27.0-31.0); MEAN CORPUSCULAR HGB CONC 30.1 g/dl (33.0-37.0); MEAN PLATELET VOLUME 11.4 fl (9.6-12.3); MONO # 0.3 10*3/uL (0.1-1.0); MONO % 3.2 % (3.0-9.0); NEUT # 8.5 10*3/uL (2.3-7.9); NEUT % 86.1 % (47.0-73.0); PLATELET COUNT AUTOMATED 388 10*3/uL (130-400); RED BLOOD COUNT 3.57 10*6/uL (4.10-5.10); RED CELL DISTRI WIDTH 15.8 % (0-14.5); WHITE BLOOD COUNT 9.9 10*3/uL (4.8-10.8)
[2019-07-23 07:03] LABS: ALBUMIN 3.5 gm/dl (3.1-4.5); ALKALINE PHOSPHATASE 76 U/L (45-117); BUN 10 mg/dl (7-24); CHLORIDE 110 mmol/L (98-107); CHOLESTEROL 179 mg/dL (<200); FREE T4 0.75 ng/dl (0.76-1.46); HDL CHOLESTEROL 64 mg/dl (40-60); LDL CHOLESTEROL 101 mg/dL (9-159); PHOSPHOROUS 2.9 mg/dL (2.5-4.9); POTASSIUM 4.3 mmol/L (3.5-5.1); SGOT/AST 12 IU/L (3-35); SGPT/ALT 16 U/L (12-78); SODIUM 141 mmol/L (136-145); TOTAL PROTEIN 6.7 gm/dL (6.4-8.2); TRIGLYCERIDES 71 mg/dl (<150); VLDL CHOLESTEROL 14 mg/dL (6-40)
[2019-07-23 07:07] LABS: THYROID STIM HORMONE (HS) 0.316 uIU/ml (0.358-4.75)
[2019-07-23 07:09] LABS: VITAMIN D, 25-HYDROXY 19.8 ng/mL (30-100)
[2019-07-23 07:12] LABS: ACT PARTIAL THROMBO TIME 22.7 SECONDS (20.0-32.1); INTERNATIONAL NORM RATIO 0.9 (2.0-3.5)
--- NOTE | 2019-07-23 09:00 | NUR ---
case management attempted to visit with patient, she was out of room at this time will see later today
[2019-07-23] MEDS ORDERED: NEURONTIN800 MG PO (09:20)
[2019-07-23] MEDS ORDERED: MILK OF MA400 MG/52 PO (09:22)
--- NOTE | 2019-07-23 10:08 | NUR ---
DR GAITAN IN TO SEE PT EARLIER. PT BECAME VERY UPSET WHEN DR GAITAN STARTED TALKING ABOUT SWITCHING HER PSYCH MEDS AROUND. I TRIED TO CALM HER DOWN. PT REMAINS UPSET AT THIS TIME TALKING ABOUT POSSIBLY GOING AMA.
--- NOTE | 2019-07-23 11:00 | NUR ---
ASSUMED CARE FOR THIS PT AT THIS TIME. PT C/O H/A 06/05 BEHIND LT EYE. PT REMINDED OF NEED FOR URINE/STOOL SAMPLES. PT STATES SHE NEEDS MOM TO HAVE A BM. DR. HEIN AWARE. CALL LIGHT IN REACH.
--- NOTE | 2019-07-23 11:02 | NUR ---
MEDICATED PT PER PRN ORDER WITH NORCO FOR C/O HAND THAT RATES 9/10 ON PAIN SCALE.
--- NOTE | 2019-07-23 13:59 | NUR ---
PT RESTING QUIETLY IN BED AT THIS TIME. FIORICET EFFECTIVE.
--- NOTE | 2019-07-23 14:34 | NUR ---
Discharge instructions reviewed with patient/family. Patient receptive and verbalizes understanding. Follow-up care arranged. Written instructions given to patient/family. GILDA REED
== END 2019-07-23 14:30 | disposition home or self-care (01) | DRG 811 ==
LOC: ED 14:40 → 4E 16:36 → EDHOLD 16:36 → 4E 16:44
PROVIDERS: Internal Medicine; Physician Assistant; ADMIT Internal Medicine
DX: T78.3XXA Angioneurotic edema, initial encounter (principal); B80 Enterobiasis; F25.8 Other schizoaffective disorders; R13.10 Dysphagia, unspecified; D50.9 Iron deficiency anemia, unspecified; J02.9 Acute pharyngitis, unspecified; G43.909 Migraine, unspecified, not intractable, without status migrainosus; F17.210 Nicotine dependence, cigarettes, uncomplicated; M54.16 Radiculopathy, lumbar region; D72.829 Elevated white blood cell count, unspecified; F41.9 Anxiety disorder, unspecified; E87.6 Hypokalemia; Z71.6 Tobacco abuse counseling; Z88.6 Allergy status to analgesic agent; Z88.0 Allergy status to penicillin; Z88.2 Allergy status to sulfonamides; Z88.8 Allergy status to other drugs, medicaments and biological substances; Z82.49 Family history of ischemic heart disease and other diseases of the circulatory system

== ENCOUNTER → 2019-07-23 | Outpatient (CLI) | payer OTHER ==
[~2019-07-23] MED LIST changes: +ABILIFY5 MG PO; +MILK OF MA400 MG/52 PO; +MIRTAZAPINE30 M2 PO; +NEURONTIN800 MG PO
== END | disposition home or self-care (01) ==
LOC: LAB 11:40
DX: R79.89 Other specified abnormal findings of blood chemistry (principal)

== ENCOUNTER → 2019-07-24 | Outpatient (CLI) | payer OTHER | END | disposition home or self-care (01) | LOC: LAB 11:16 | DX: R79.89 Other specified abnormal findings of blood chemistry (principal) ==

== ENCOUNTER 2019-11-02 11:00 | Emergency (ER) | payer OTHER ==
[~2019-11-02] VITALS: Ht 170.1 cm; Wt 68.0 kg
[2019-11-02 12:36] LABS: BASO % 0.3 % (0.0-1.0); EOS # 0.1 10*3/uL (0.0-0.4); EOS % 0.8 % (1.0-4.0); HEMATOCRIT 34.9 % (37.0-47.0); HEMOGLOBIN 10.6 g/dl (12.0-16.0); LYMPH # 2.2 10*3/uL (1.3-4.4); LYMPH % 18.1 % (27.0-41.0); MEAN CORPUSCULAR HGB 24.3 pg (27.0-31.0); MEAN CORPUSCULAR HGB CONC 30.4 g/dl (33.0-37.0); MEAN PLATELET VOLUME 10.4 fl (9.6-12.3); MONO # 0.9 10*3/uL (0.1-1.0); MONO % 7.1 % (3.0-9.0); NEUT # 8.8 10*3/uL (2.3-7.9); NEUT % 73.4 % (47.0-73.0); PLATELET COUNT AUTOMATED 526 10*3/uL (130-400); RED BLOOD COUNT 4.36 10*6/uL (4.10-5.10); RED CELL DISTRI WIDTH 17.8 % (0-14.5); WHITE BLOOD COUNT 12.1 10*3/uL (4.8-10.8)
[2019-11-02 12:51] LABS: ALBUMIN 4.1 gm/dl (3.1-4.5); ALKALINE PHOSPHATASE 85 U/L (45-117); BUN 17 mg/dl (7-24); CHLORIDE 110 mmol/L (98-107); CREATININE 0.75 mg/dL (0.55-1.02); LIPASE 65 U/L (73-393); POTASSIUM 3.7 mmol/L (3.5-5.1); SGOT/AST 12 IU/L (3-35); SGPT/ALT 18 U/L (12-78); SODIUM 140 mmol/L (136-145); TOTAL PROTEIN 8.2 gm/dL (6.4-8.2)
[2019-11-02 12:53] LABS: B-hCG (QUALITATIVE) NEGATIVE (NEGATIVE)
[2019-11-02 12:58] LABS: TROPONIN I < 0.015 ng/ml (<0.045)
[2019-11-02 14:13] LABS: BILIRUBIN NEGATIVE (NEGATIVE); BLOOD NEGATIVE (NEGATIVE); CLARITY TURBID (CLEAR); COLOR YELLOW (YELLOW); GLUCOSE NEGATIVE (NEGATIVE); KETONE NEGATIVE (NEGATIVE); LEUKO ESTERASE TRACE (NEGATIVE); NITRITE NEGATIVE (NEGATIVE); UROBILINOGEN 0.2 E.U./dl (0.2-1.0)
[2019-11-02 14:19] LABS: BACTERIA 1+
[2019-11-02 14:52] VITALS: BP 111/64
[2019-11-02] MEDS ORDERED: ZOFRAN4 MG PO (15:32)
== END 2019-11-02 15:40 | disposition home or self-care (01) ==
LOC: ED 11:00
PROVIDERS: Internal Medicine
DX: R10.31 Right lower quadrant pain (principal); R19.7 Diarrhea, unspecified; R30.0 Dysuria; G43.909 Migraine, unspecified, not intractable, without status migrainosus; F17.200 Nicotine dependence, unspecified, uncomplicated; G89.29 Other chronic pain; Z87.442 Personal history of urinary calculi; Z88.0 Allergy status to penicillin; Z88.2 Allergy status to sulfonamides; Z88.6 Allergy status to analgesic agent; Z79.899 Other long term (current) drug therapy; Z88.5 Allergy status to narcotic agent

== ENCOUNTER 2019-12-27 17:23 | Emergency (ER) | payer OTHER ==
[~2019-12-27] VITALS: Ht 170.1 cm; Wt 68.9 kg
[2019-12-27 17:26] VITALS: BP 139/90
[2019-12-28] MEDS ORDERED: IMODIUM A-D2 M2 PO (18:37)
== END 2019-12-27 19:50 | disposition left against medical advice (07) ==
LOC: ED 17:23
DX: R05 Cough (principal); G43.909 Migraine, unspecified, not intractable, without status migrainosus; F17.210 Nicotine dependence, cigarettes, uncomplicated; Z53.20 Procedure and treatment not carried out because of patient's decision for unspecified reasons; Z88.0 Allergy status to penicillin; Z88.2 Allergy status to sulfonamides; Z88.6 Allergy status to analgesic agent; Z88.8 Allergy status to other drugs, medicaments and biological substances; Z79.899 Other long term (current) drug therapy

== ENCOUNTER 2019-12-28 14:50 | Emergency (ER) | payer OTHER ==
[~2019-12-28] VITALS: Wt 68.9 kg
[2019-12-28 14:58] VITALS: BP 141/94
[2019-12-28 15:41] LABS: BASO # 0.1 10*3/uL (0.0-0.1); BASO % 0.6 % (0.0-1.0); EOS # 0.3 10*3/uL (0.0-0.4); EOS % 2.1 % (1.0-4.0); HEMATOCRIT 37.5 % (37.0-47.0); HEMOGLOBIN 11.2 g/dl (12.0-16.0); LYMPH # 2.4 10*3/uL (1.3-4.4); LYMPH % 19.5 % (27.0-41.0); MEAN CELL VOLUME 82.4 fl (81.0-99.0); MEAN CORPUSCULAR HGB 24.6 pg (27.0-31.0); MEAN CORPUSCULAR HGB CONC 29.9 g/dl (33.0-37.0); MEAN PLATELET VOLUME 10.7 fl (9.6-12.3); MONO # 0.8 10*3/uL (0.1-1.0); MONO % 6.4 % (3.0-9.0); NEUT # 8.8 10*3/uL (2.3-7.9); NEUT % 71.1 % (47.0-73.0); PLATELET COUNT AUTOMATED 532 10*3/uL (130-400); RED BLOOD COUNT 4.55 10*6/uL (4.10-5.10); RED CELL DISTRI WIDTH 19.1 % (0-14.5); WHITE BLOOD COUNT 12.4 10*3/uL (4.8-10.8)
[2019-12-28 16:00] LABS: ALKALINE PHOSPHATASE 75 U/L (45-117); BUN 9 mg/dl (7-24); CHLORIDE 109 mmol/L (98-107); CREATININE 0.79 mg/dL (0.55-1.02); POTASSIUM 3.6 mmol/L (3.5-5.1); SGOT/AST 12 IU/L (3-35); SGPT/ALT 16 U/L (12-78); SODIUM 141 mmol/L (136-145); TOTAL PROTEIN 8.2 gm/dL (6.4-8.2)
[2019-12-28 16:18] LABS: CLARITY CLEAR (CLEAR); COLOR YELLOW (YELLOW)
[2019-12-28 16:19] LABS: BILIRUBIN NEGATIVE (NEGATIVE); BLOOD 3+ (NEGATIVE); GLUCOSE NEGATIVE (NEGATIVE); KETONE NEGATIVE (NEGATIVE); LEUKO ESTERASE NEGATIVE (NEGATIVE); NITRITE NEGATIVE (NEGATIVE); UROBILINOGEN 0.2 E.U./dl (0.2-1.0)
[2019-12-28 16:25] LABS: BACTERIA 1+; EPITHELIAL CELLS 15-20
[2019-12-28 16:27] LABS: URINE AMPHETAMINES < 1000 (1000ng/ml); URINE BARBITURATES < 200 (200ng/ml); URINE BENZODIAZEPINES < 200 (200ng/ml); URINE CANNABINOIDS (THC) < 50 (50ng/ml); URINE COCAINE < 300 (300ng/ml); URINE METHADONE < 300 (300ng/ml); URINE OPIATES > 300 (300ng/ml)
[2019-12-28 16:34] LABS: URINE PHENCYCLIDINE < 25 (25ng/ml)
[2019-12-28] MEDS ORDERED: IMODIUM A-D2 M2 PO (18:37)
== END 2019-12-28 18:50 | disposition home or self-care (01) ==
LOC: ED 14:50
PROVIDERS: Emergency Medicine
DX: R51 Headache (principal); M54.2 Cervicalgia; R06.02 Shortness of breath; R05 Cough; R19.7 Diarrhea, unspecified; R42 Dizziness and giddiness; Z88.0 Allergy status to penicillin; Z88.2 Allergy status to sulfonamides; Z88.5 Allergy status to narcotic agent; Z88.8 Allergy status to other drugs, medicaments and biological substances

== ENCOUNTER 2020-01-30 00:21 | Emergency (ER) | payer OTHER ==
[~2020-01-30] VITALS: Ht 170.1 cm; Wt 70.3 kg
[~2020-01-30 00:21] MED LIST changes: +IMODIUM A-D2 M2 PO
[2020-01-30 00:37] VITALS: BP 137/100
[2020-01-30] MEDS ORDERED: PEPCID20 MG PO (01:04)
[2020-01-30] MEDS ORDERED: PREDNISONE20 M1 PO (01:04)
[2020-01-31] MEDS ORDERED: PERCOCET 5-3251 EACH PO (18:24)
[2020-01-31] MEDS ORDERED: VALTREX1000 MG PO (18:24)
== END 2020-01-30 01:09 | disposition home or self-care (01) ==
LOC: ED 00:21
DX: L25.9 Unspecified contact dermatitis, unspecified cause (principal); Z88.5 Allergy status to narcotic agent; Z88.2 Allergy status to sulfonamides; Z88.8 Allergy status to other drugs, medicaments and biological substances; Z79.899 Other long term (current) drug therapy; Z79.2 Long term (current) use of antibiotics

== ENCOUNTER 2020-01-31 17:27 | Emergency (ER) | payer OTHER ==
[~2020-01-31] VITALS: Ht 170.1 cm; Wt 70.3 kg
[~2020-01-31 17:27] MED LIST changes: +PEPCID20 MG PO; +PREDNISONE20 M1 PO
[2020-01-31 17:34] VITALS: BP 135/90
[2020-01-31] MEDS ORDERED: VALTREX1000 MG PO (18:24)
[2020-01-31] MEDS ORDERED: PERCOCET 5-3251 EACH PO (18:24)
== END 2020-01-31 18:40 | disposition home or self-care (01) ==
LOC: ED 17:27
DX: B02.9 Zoster without complications (principal); Z88.0 Allergy status to penicillin; Z88.2 Allergy status to sulfonamides; Z88.1 Allergy status to other antibiotic agents; Z88.5 Allergy status to narcotic agent; Z79.899 Other long term (current) drug therapy

== ENCOUNTER 2020-02-04 01:35 | Inpatient (IN) | payer OTHER ==
[~2020-02-04] VITALS: Ht 170.1 cm; Wt 77.6 kg
[~2020-02-04 01:35] MED LIST changes: +PERCOCET 5-3251 EACH PO; +VALTREX1000 MG PO
[2020-02-04 01:43] VITALS: BP 168/81
[2020-02-04 02:19] LABS: BASO # 0.1 10*3/uL (0.0-0.1); BASO % 0.5 % (0.0-1.0); EOS # 0.7 10*3/uL (0.0-0.4); EOS % 5.4 % (1.0-4.0); HEMATOCRIT 33.3 % (37.0-47.0); LYMPH # 3.3 10*3/uL (1.3-4.4); LYMPH % 26.2 % (27.0-41.0); MEAN CELL VOLUME 82.6 fl (81.0-99.0); MEAN CORPUSCULAR HGB 25.6 pg (27.0-31.0); MEAN CORPUSCULAR HGB CONC 30.9 g/dl (33.0-37.0); MONO % 7.9 % (3.0-9.0); NEUT # 7.4 10*3/uL (2.3-7.9); NEUT % 59.8 % (47.0-73.0); PLATELET COUNT AUTOMATED 524 10*3/uL (130-400); RED BLOOD COUNT 4.03 10*6/uL (4.10-5.10); RED CELL DISTRI WIDTH 18.4 % (0-14.5); WHITE BLOOD COUNT 12.4 10*3/uL (4.8-10.8)
[2020-02-04 02:36] LABS: ALBUMIN 3.7 gm/dl (3.1-4.5); ALKALINE PHOSPHATASE 60 U/L (45-117); BUN 20 mg/dl (7-24); CHLORIDE 110 mmol/L (98-107); CREATININE 0.74 mg/dL (0.55-1.02); POTASSIUM 3.8 mmol/L (3.5-5.1); SGOT/AST 13 IU/L (3-35); SGPT/ALT 20 U/L (12-78); SODIUM 140 mmol/L (136-145); TOTAL PROTEIN 7.5 gm/dL (6.4-8.2)
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
[2020-02-04 04:00] VITALS: BP 118/68
--- NOTE | 2020-02-04 04:00 | NUR ---
A 39, admitted to , under the services of JYOTI Mendez DO with a diagnosis of SHINGLES. Chief complaint is SHINGLES. Patient arrived via wheel chair from ER. Monitor applied. Initial assessment completed. Vital signs taken and recorded. JYOTI MENDEZ DO notified of admission to the unit. Orders received. See assessment for past medical history, medications and allergies. Patient and/or family oriented to unit. [facility] visitation policy reviewed. Clothing/patient valuable form completed. LISA STOKES
[2020-02-04] MEDS ORDERED: ABILIFY20 MG PO (04:02)
--- NOTE | 2020-02-04 04:03 | NUR ---
MED REC COMPLETED WITH PATIENT ALERT AND ORIENTED TO PERSON PLACE AND TIME
--- NOTE | 2020-02-04 04:15 | NUR ---
SPOKE WITH WHILE IN THE ROOM WITH THE PATIENT. THEY WERE INQUIRING ABOUT WHETHER THE PATIENT WOULD BE ABLE TO TOLERATE KEFZOL SHE IS ALLERGIC TO PENICILLIN, THE PATIENT STATED THAT SHE HAS HAD KEFLEX IN THE PAST AND BEEN OK. THIS WAS RELAYED TO PHARMACY. ALSO INQUIRED ABOUT NORCO, PATIENT STATED SHE IS OK TO TAKE IT
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
--- NOTE | 2020-02-04 04:29 | NUR ---
MEDICATED WITH PRN NORCO FOR C/O PAIN RATED 8/10 ON A 0/10 PAIN SCALE ON FACE AND EARS. WILL MONITOR
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
--- NOTE | 2020-02-04 05:30 | NUR ---
PAIN MEDICATION A LITTLE BIT EFFECTIVE PER PT, EVEN THOUGH PATIENT WAS SLEEPING WHEN WALKING IN TO ROOM WITH WOUND CARE NURSE.
--- NOTE | 2020-02-04 05:36 | NUR ---
GALINDO PHELPS [id number] Please refer to the physician's history and physical for past medical history, comorbid conditions, and allergies. Diagnosis: SHINGLES IMPETIGO Ilya Score: 22,LOW OR NO RISK WOUND DESCRIPTIONS: Wound Number: 1 Location of the wound: right ear Type of wound: rash Thickness: Partial Size: 9.0cm x 8.0cm x 0.1cm Tunneling: none Undermining: none Sinus Tract: none Presence of Exudate: Serous Amount: Moderate Color: Red Odor: None Periwound Skin Appearance: Warm Wound edges: approximated Pain (associated with wound): very tender to touch How does patient state this happened? pt stated this started 5 days ago with a red patch on the back of her neck it then began seeping 2 days after she was seen in our ed twice first time they stated it was poision jose next time they stated it was shingle and sent her home on acyclovir and has been taking the medication since and areas are getting worse. Wound Number: 2 Location of the wound: posterior neck Type of wound: rash Thickness: Partial Size: 9.5cm x 22.0cm x 0.1cm Tunneling: none Undermining: none Sinus Tract: none Presence of Exudate: Serous Amount: Moderate Color: Red Odor: None Periwound Skin Appearance: Warm Wound edges: approximated Pain (associated with wound): very tender to touch How does patient state this happened? pt stated this started 5 days ago with a red patch on the back of her neck it then began seeping 2 days after she was seen in our ed twice first time they stated it was poision jose next time they stated it was shingle and sent her home on acyclovir and has been taking the medication since and areas are getting worse. Wound Number: 3 Location of the wound: left ear Type of wound: rash Thickness: Partial Size: 6.0cm x 5.0cm x 0.1cm Tunneling: none Undermining: none Sinus Tract: none Presence of Exudate: Serous Amount: Moderate Color: Red Odor: None Periwound Skin Appearance: Warm Wound edges: approximated Pain (associated with wound): very tender to touch How does patient state this happened? pt stated this started 5 days ago with a red patch on the back of her neck it then began seeping 2 days after she was seen in our ed twice first time they stated it was poision jose next time they stated it was shingle and sent her home on acyclovir and has been taking the medication since and areas are getting worse. Wound Number: 4 Location of the wound: right temporal Type of wound: rash Thickness: Partial Size: 4.0cm x 2.5cm x 0.1cm Tunneling: none Undermining: none Sinus Tract: none Presence of Exudate: Serous Amount: Moderate Color: Red Odor: None Periwound Skin Appearance: Warm Wound edges: approximated Pain (associated with wound): very tender to touch How does patient state this happened? pt stated this started 5 days ago with a red patch on the back of her neck it then began seeping 2 days after she was seen in our ed twice first time they stated it was poision jose next time they stated it was shingle and sent her home on acyclovir and has been taking the medication since and areas are getting worse. Wound Number: 5 Location of the wound: chest Type of wound: rash Thickness: Partial Size: 17.0cm x 19.0cm x 0.1cm Tunneling: none Undermining: none Sinus Tract: none Presence of Exudate: Serous Amount: Moderate Color: Red Odor: None Periwound Skin Appearance: Warm Wound edges: approximated Pain (associated with wound): very tender to touch How does patient state this happened? pt stated this started 5 days ago with a red patch on the back of her neck it then began seeping 2 days after she was seen in our ed twice first time they stated it was poision jose next time they stated it was shingle and sent her home on acyclovir and has been taking the medication since and areas are getting worse. Surface the patient is resting on: Isoflex SKIN PREVENTION RECOMMENDATION: 1. Pressure redistribution support surface as appropriate 2. Elevate heels 3. Remove boots/TEDS every shift and reapply 4. Head of bed 30 degrees as tolerated 5. Assess nutrition and hydration 6. Manage moisture 7. Avoid the use of containment devices while in bed 8. Use absorptive products on surfaces limit layers of linens on bed 9. Turn and reposition every 1-2 hours in bed and every 1 hour in chair as tolerated 10. Weight shifts every 15 minutes while up in chair 11. Offloading with pillows or device to keep heels elevated off bed 12. Monitor skin at least every shift 13. Inspect under medical devices twice a day WOUND TREATMENT RECOMMENDATIONS: Patient states she will follow up with dermatology upon discharge since this is a reoccuring rash Cleanse left ear, right ear, posterior neck, chest and right temporal area with soap and water pat areas dry then apply calamine QID Cool compresses qid every 15 mins or as tolerated
[2020-02-04 06:51] LABS: BASO # 0.1 10*3/uL (0.0-0.1); BASO % 0.6 % (0.0-1.0); EOS # 0.7 10*3/uL (0.0-0.4); EOS % 6.2 % (1.0-4.0); HEMATOCRIT 32.1 % (37.0-47.0); LYMPH # 3.3 10*3/uL (1.3-4.4); MEAN CELL VOLUME 83.2 fl (81.0-99.0); MEAN CORPUSCULAR HGB 25.4 pg (27.0-31.0); MEAN CORPUSCULAR HGB CONC 30.5 g/dl (33.0-37.0); MEAN PLATELET VOLUME 10.3 fl (9.6-12.3); MONO # 0.8 10*3/uL (0.1-1.0); MONO % 7.4 % (3.0-9.0); NEUT % 55.5 % (47.0-73.0); PLATELET COUNT AUTOMATED 498 10*3/uL (130-400); RED BLOOD COUNT 3.86 10*6/uL (4.10-5.10); RED CELL DISTRI WIDTH 18.5 % (0-14.5); WHITE BLOOD COUNT 10.9 10*3/uL (4.8-10.8)
[2020-02-04 07:23] LABS: CHLORIDE 109 mmol/L (98-107); POTASSIUM 4.2 mmol/L (3.5-5.1); SODIUM 142 mmol/L (136-145)
[2020-02-04 07:27] LABS: BUN 20 mg/dl (7-24); CREATININE 0.57 mg/dL (0.55-1.02)
[2020-02-04 08:00] VITALS: BP 109/65
--- NOTE | 2020-02-04 08:53 | NUR ---
DR. ARIAS OFFICE NOTIFIED OF CONSULT.
--- NOTE | 2020-02-04 08:56 | NUR ---
CALAMINE LOTION APPLIED AND THEN WASHED OFF DUE TO BURNING.
--- NOTE | 2020-02-04 09:30 | NUR ---
Heart Specialist in to talk to patient. Patient states lives at home with family. There are no steps in the home. Physician: crescencio nieto [facility]acy: [facility] [place] health services: none Patient's level of ADLs: INDEPENDENT Patient has working utilities: all working DME: none Follow-up physician's appointment after d/c: will be made by hospitalist nurse director upon discharge Does patient want to access PORTAL?: no Discharge plan discussed with patient, she lives at home with family, is independent in adls and ambulation, patient states she will return home when medically stable and denies any home needs case management will follow. MACIEL LOONEY
--- NOTE | 2020-02-04 10:15 | NUR ---
PT STATES ONE TIME DOSE OF DILAUDID WAS EFFECTIVE.
--- NOTE | 2020-02-04 11:29 | NUR ---
PT MEDICATED WITH PRN PERCOCET FOR C/O BILATERAL EAR PAIN. PT RATES PAIN 04/04. WILL MONITOR.
[2020-02-04 12:00] VITALS: BP 114/87
--- NOTE | 2020-02-04 14:59 | NUR ---
Nutritional Support Services Note: Pt with Dx of Shingles. Areas noted to back of knees, right eat, left eat and right christian. Eating 100% of meals. Regular diet as ordered. No other nutrition intervention needed at this time. Continue to encourage good intake of meals. Will follow as needed. Kya Rdz Rdn Ld
[2020-02-04 16:00] VITALS: BP 124/80
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
--- NOTE | 2020-02-04 17:10 | NUR ---
PT MEDICATED WITH PRN PERCOCET FOR C/O BILATERAL EAR PAIN. PT RATES PAIN 04/04. WILL MONITOR.
--- NOTE | 2020-02-04 19:25 | NUR ---
24 HR chart check completed.
[2020-02-04 20:00] VITALS: BP 121/68
--- NOTE | 2020-02-04 20:30 | NUR ---
RESTING IN BED WATCHING TV. RESPIRATIONS EASY. LUNGS DIMINISHED, CLEAR. PULSE OX 95% RA. CRUSTY RASH NOTED TO POSTERIOR NECK EXTENDING UPWARD INTO HAIRLINE AND ACROSS EARS, SEROUS DRAINAGE NOTED. IV FLUIDS INFUSING. CALL LIGHT WITHIN REACH. NO VOICED COMPLAINTS
--- NOTE | 2020-02-04 23:37 | NUR ---
REQUESTED AND RECEIVED PERCOCET AND RESTORIL PER PRN ORDER FOR COMPLAINTS OF PAIN RATING A 5 D/T RASH AND TO ASSIST WITH SLEEP. WILL MONITOR
[2020-02-05 00:08] VITALS: BP 126/59
--- NOTE | 2020-02-05 00:45 | NUR ---
MEDS EFFECTIVE. SLEEPING. RESPIRATIONS EASY. VSS. CALL LIGHT WITHIN REACH
[2020-02-05] MEDS ORDERED: HYDROXYZINE HCL25 MG PO (00:46)
--- NOTE | 2020-02-05 05:12 | NUR ---
UPON AWAKENING FOR AM MEDS, PATIENT C/O PAIN RATING AN 8 D/T RASH - MEDICATED WITH PERCOCET PER PRN ORDER. CALL LIGHT WITHIN REACH. WILL MONITOR
--- NOTE | 2020-02-05 06:00 | NUR ---
MEDS APPEAR EFFECTIVE. SLEEPING. RESPIRATIONS EASY. CALL LIGHT WITHIN REACH
[2020-02-05 08:00] VITALS: BP 123/63
[2020-02-05 08:10] LABS: IMMUNOGLOBULIN M, QNT 93 mg/dL (26-217)
--- NOTE | 2020-02-05 09:39 | NUR ---
[place] Joiner in to see patient. She states she lives at home with her ex- and children. She states there are 2 steps to get into the home and basement steps but doesn't believe she will have any issues with them. She drove herself here to the hospital and her car is in the ER parking lot and she plans to drive herself home. Hospitalist nurse notified patient would like to speak to a physician regarding her care.
--- NOTE | 2020-02-05 11:00 | NUR ---
PT COMPLAINS OF CONSTIPATION. PRN DULCOLAX ADMINISTERED.
--- NOTE | 2020-02-05 11:23 | NUR ---
PT COMPLAINS OF HEAD, NECK AND EAR PAIN RATED AT AN 8. PRN PERCOCET ADMINISTERED AT THIS TIME.
[2020-02-05 12:00] VITALS: BP 114/60
--- NOTE | 2020-02-05 13:00 | NUR ---
PT STATES SOME RELIEF FROM PRN PERCOCET.
[2020-02-05 15:08] LABS: IGG SUBCLASS 1 340 mg/dL (248-810); IGG SUBCLASS 2 276 mg/dL (130-555); IGG SUBCLASS 3 44 mg/dL (15-102); IGG SUBCLASS 4 35 mg/dL (2-96); IMMUNOGLOBULIN G, QNT 768 mg/dL (586-1602)
[2020-02-05 16:00] VITALS: BP 102/79
--- NOTE | 2020-02-05 17:30 | NUR ---
PRN PERCOCET ADMINISTERED AT THIS TIME FOR HEAD AND LEG PAIN RATED AT AN 8. WILL MONITOR FOR EFFECTIVENESS.
--- NOTE | 2020-02-05 18:06 | NUR ---
PT COMPLAINS OF ITCHING TO BILATERAL LEGS. BLOOD SPOTS ON THE SHEETS OBSERVED FROM WHERE SHE WAS SCRATCHING LEGS. CALAMINE LOTION GIVEN AT THIS TIME. DR HEIN NOTIFIED AND ORDERS OBTAINED.
--- NOTE | 2020-02-05 19:10 | NUR ---
1 TIME DOSE OF BENADRYL ADMINISTERED AT THIS TIME FOR PT C/O ITCHING ALL OVER.
[2020-02-05 20:00] VITALS: BP 115/62
--- NOTE | 2020-02-05 20:00 | NUR ---
UPON GOING IN TO SEE PT. SHE STATES THAT SHE HAS NECK & HEAD PAIN & AN ITCH IN HER EARS & PAIN IN HER EARS. HAD BEEN MEDICATED EARLIER WITH PERCOCET & ALSO WITH BENADRYL. PT. STATES THAT WE CANNOT DO ANYTHING FOR HER & IS THINKING ABOUT LEAVING. ASSESSMENT COMPLETED; CALL LIGHT WITHIN REACH.
--- NOTE | 2020-02-05 20:59 | NUR ---
IV started left forearm with #24 protective cath after 2 attempts. Site prepped with Chloroprep. Sterile dressing applied. Patient tolerated procedure well. IV infusing at 100 cc/hr. MELISSA CAMARA
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
--- NOTE | 2020-02-05 23:30 | NUR ---
MEDICATED WITH PERCOCET FOR C/O PAIN FROM SHINGLES.
[2020-02-06] VITALS: BP 106/60
[2020-02-06 08:00] VITALS: BP 122/65
[2020-02-06] MEDS ORDERED: MEDROL DOSEPAK4 MG PO (10:43)
[2020-02-06] MEDS ORDERED: ACYCLOVIR800 MG PO (10:43)
[2020-02-06] MEDS ORDERED: ERYTHROMYCIN 2%60 GM T (10:49)
[2020-02-06] MEDS ORDERED: PERCOCET 7.5 MG-325 PO (10:49)
[2020-02-06] MEDS ORDERED: TOBRADEX 0.1%-0.5 ML OPH (10:49)
--- NOTE | 2020-02-06 11:25 | NUR ---
[facility] Discharge instructions reviewed with patient/family. Patient receptive and verbalizes understanding. Follow-up care arranged. Written instructions given to patient/family. JOSSELIN RAZO
== END 2020-02-06 11:25 | disposition home or self-care (01) | DRG 720 ==
LOC: ED 01:35 → 4E 02:28 → EDHOLD 02:28 → 4E 02:54
PROVIDERS: Emergency Medicine; Specialist; Student in an Organized Health Care Education/Training Program; ADMIT Family Medicine
DX: A41.9 Sepsis, unspecified organism (principal); B02.29 Other postherpetic nervous system involvement; F25.9 Schizoaffective disorder, unspecified; F41.9 Anxiety disorder, unspecified; D50.9 Iron deficiency anemia, unspecified; E87.8 Other disorders of electrolyte and fluid balance, not elsewhere classified; E83.41 Hypermagnesemia; B00.9 Herpesviral infection, unspecified; F17.210 Nicotine dependence, cigarettes, uncomplicated; J44.9 Chronic obstructive pulmonary disease, unspecified; G43.909 Migraine, unspecified, not intractable, without status migrainosus; Z88.8 Allergy status to other drugs, medicaments and biological substances; Z88.6 Allergy status to analgesic agent; Z88.0 Allergy status to penicillin; Z88.2 Allergy status to sulfonamides; Z82.49 Family history of ischemic heart disease and other diseases of the circulatory system; Z79.899 Other long term (current) drug therapy; Z71.6 Tobacco abuse counseling; B02.9 Zoster without complications

== ENCOUNTER 2020-03-29 14:15 | Emergency (ER) | payer OTHER ==
[~2020-03-29] VITALS: Ht 170.1 cm; Wt 68.0 kg
[~2020-03-29 14:15] MED LIST changes: +ABILIFY20 MG PO; +ACYCLOVIR800 MG PO; +ERYTHROMYCIN 2%60 GM T; +HYDROXYZINE HCL25 MG PO; +MEDROL DOSEPAK4 MG PO; +PERCOCET 7.5 MG-325 PO; +TOBRADEX 0.1%-0.5 ML OPH
[2020-03-29 14:51] LABS: BASO # 0.1 10*3/uL (0.0-0.1); BASO % 0.5 % (0.0-1.0); EOS # 0.2 10*3/uL (0.0-0.4); EOS % 2.3 % (1.0-4.0); HEMATOCRIT 29.7 % (37.0-47.0); LYMPH # 2.6 10*3/uL (1.3-4.4); LYMPH % 25.1 % (27.0-41.0); MEAN CORPUSCULAR HGB 24.6 pg (27.0-31.0); MEAN PLATELET VOLUME 10.6 fl (9.6-12.3); MONO # 0.9 10*3/uL (0.1-1.0); NEUT # 6.4 10*3/uL (2.3-7.9); NEUT % 62.7 % (47.0-73.0); PLATELET COUNT AUTOMATED 498 10*3/uL (130-400); RED BLOOD COUNT 3.62 10*6/uL (4.10-5.10); RED CELL DISTRI WIDTH 16.5 % (0-14.5); WHITE BLOOD COUNT 10.2 10*3/uL (4.8-10.8)
[2020-03-29 14:54] LABS: BILIRUBIN 1+ (NEGATIVE); BLOOD NEGATIVE (NEGATIVE); CLARITY CLOUDY (CLEAR); COLOR YELLOW (YELLOW); GLUCOSE NEGATIVE (NEGATIVE); KETONE NEGATIVE (NEGATIVE); LEUKO ESTERASE NEGATIVE (NEGATIVE); NITRITE NEGATIVE (NEGATIVE); UROBILINOGEN 0.2 E.U./dl (0.2-1.0)
[2020-03-29 14:59] LABS: BACTERIA 1+; EPITHELIAL CELLS TNTC; MUCOUS 2+
[2020-03-29 15:07] LABS: ALBUMIN 3.5 gm/dl (3.1-4.5); ALKALINE PHOSPHATASE 63 U/L (45-117); BUN 12 mg/dl (7-24); CHLORIDE 113 mmol/L (98-107); CREATININE 0.93 mg/dL (0.55-1.02); LIPASE 68 U/L (73-393); POTASSIUM 3.9 mmol/L (3.5-5.1); SGOT/AST 7 IU/L (3-35); SGPT/ALT 15 U/L (12-78); SODIUM 141 mmol/L (136-145); TOTAL PROTEIN 7.3 gm/dL (6.4-8.2)
[2020-03-29] MEDS ORDERED: ZOFRAN4 MG PO (18:16)
[2020-03-29] MEDS ORDERED: DOXYCYCLINE100 M3 PO (18:16)
[2020-03-29] MEDS ORDERED: NORCO 5-325 TA1 EACH PO (18:21)
[2020-03-29 18:22] VITALS: BP 116/71
== END 2020-03-29 18:20 | disposition home or self-care (01) ==
LOC: ED 14:15
PROVIDERS: Physician Assistant
DX: K52.9 Noninfective gastroenteritis and colitis, unspecified (principal); J18.9 Pneumonia, unspecified organism; Z88.8 Allergy status to other drugs, medicaments and biological substances; Z88.5 Allergy status to narcotic agent; Z79.899 Other long term (current) drug therapy

== ENCOUNTER 2020-04-07 13:00 | Emergency (ER) | payer OTHER ==
[~2020-04-07] VITALS: Ht 167.6 cm; Wt 68.0 kg
[2020-04-07 13:52] LABS: BASO # 0.1 10*3/uL (0.0-0.1); BASO % 0.4 % (0.0-1.0); EOS # 0.2 10*3/uL (0.0-0.4); EOS % 1.2 % (1.0-4.0); HEMATOCRIT 32.8 % (37.0-47.0); LYMPH # 3.9 10*3/uL (1.3-4.4); LYMPH % 28.3 % (27.0-41.0); MEAN CELL VOLUME 79.2 fl (81.0-99.0); MEAN CORPUSCULAR HGB 24.9 pg (27.0-31.0); MEAN CORPUSCULAR HGB CONC 31.4 g/dl (33.0-37.0); MEAN PLATELET VOLUME 10.3 fl (9.6-12.3); MONO # 1.3 10*3/uL (0.1-1.0); MONO % 9.4 % (3.0-9.0); NEUT # 8.2 10*3/uL (2.3-7.9); NEUT % 60.3 % (47.0-73.0); PLATELET COUNT AUTOMATED 534 10*3/uL (130-400); RED BLOOD COUNT 4.14 10*6/uL (4.10-5.10); RED CELL DISTRI WIDTH 16.3 % (0-14.5); WHITE BLOOD COUNT 13.7 10*3/uL (4.8-10.8)
[2020-04-07 14:20] LABS: ALBUMIN 3.8 gm/dl (3.1-4.5); ALKALINE PHOSPHATASE 70 U/L (45-117); BUN 13 mg/dl (7-24); CHLORIDE 107 mmol/L (98-107); CREATININE 0.77 mg/dL (0.55-1.02); POTASSIUM 3.6 mmol/L (3.5-5.1); SGOT/AST 8 IU/L (3-35); SGPT/ALT 12 U/L (12-78); SODIUM 139 mmol/L (136-145); TOTAL PROTEIN 7.8 gm/dL (6.4-8.2)
[2020-04-07 14:21] LABS: LIPASE 47 U/L (73-393)
[2020-04-07 14:32] LABS: BETA-HCG, QUANT < 1.0 mIU/mL (1-3); TROPONIN I < 0.015 ng/ml (<0.045)
[2020-04-07] MEDS ORDERED: ATIVAN1 MG PO (16:58)
[2020-04-07 17:03] VITALS: BP 126/70
== END 2020-04-07 17:15 | disposition home or self-care (01) ==
LOC: ED 13:00
PROVIDERS: Emergency Medicine
DX: F41.9 Anxiety disorder, unspecified (principal); R07.89 Other chest pain; F17.200 Nicotine dependence, unspecified, uncomplicated; Z88.0 Allergy status to penicillin; Z88.2 Allergy status to sulfonamides; Z88.6 Allergy status to analgesic agent; Z88.8 Allergy status to other drugs, medicaments and biological substances; Z79.899 Other long term (current) drug therapy

== ENCOUNTER 2020-04-09 14:58 | Emergency (ER) | payer OTHER ==
[~2020-04-09] VITALS: Wt 68.0 kg
[~2020-04-09 14:58] MED LIST changes: +ATIVAN1 MG PO
[2020-04-09 15:00] VITALS: BP 116/79
[2020-04-09 16:18] LABS: BASO # 0.1 10*3/uL (0.0-0.1); BASO % 0.2 % (0.0-1.0); EOS # 0.1 10*3/uL (0.0-0.4); EOS % 0.5 % (1.0-4.0); HEMATOCRIT 35.4 % (37.0-47.0); LYMPH # 3.8 10*3/uL (1.3-4.4); LYMPH % 17.8 % (27.0-41.0); MEAN CELL VOLUME 79.9 fl (81.0-99.0); MEAN CORPUSCULAR HGB 24.2 pg (27.0-31.0); MEAN CORPUSCULAR HGB CONC 30.2 g/dl (33.0-37.0); MEAN PLATELET VOLUME 10.3 fl (9.6-12.3); MONO # 1.3 10*3/uL (0.1-1.0); MONO % 6.2 % (3.0-9.0); NEUT # 15.8 10*3/uL (2.3-7.9); NEUT % 74.8 % (47.0-73.0); PLATELET COUNT AUTOMATED 578 10*3/uL (130-400); RED BLOOD COUNT 4.43 10*6/uL (4.10-5.10); RED CELL DISTRI WIDTH 16.4 % (0-14.5); WHITE BLOOD COUNT 21.2 10*3/uL (4.8-10.8)
[2020-04-09 16:27] LABS: URINE AMPHETAMINES < 1000 (1000ng/ml); URINE BARBITURATES < 200 (200ng/ml); URINE BENZODIAZEPINES < 200 (200ng/ml); URINE CANNABINOIDS (THC) < 50 (50ng/ml); URINE COCAINE < 300 (300ng/ml); URINE METHADONE < 300 (300ng/ml); URINE OPIATES < 300 (300ng/ml)
[2020-04-09 16:29] LABS: URINE PHENCYCLIDINE < 25 (25ng/ml)
[2020-04-09 16:39] LABS: ALKALINE PHOSPHATASE 71 U/L (45-117); BUN 8 mg/dl (7-24); CHLORIDE 106 mmol/L (98-107); CREATININE 0.76 mg/dL (0.55-1.02); POTASSIUM 3.9 mmol/L (3.5-5.1); SGOT/AST 12 IU/L (3-35); SGPT/ALT 15 U/L (12-78); SODIUM 138 mmol/L (136-145); TOTAL PROTEIN 8.3 gm/dL (6.4-8.2)
[2020-04-09 16:48] LABS: ETHYL ALCOHOL < 3.0 mg/dl (<3)
[2020-04-09 17:15] LABS: BILIRUBIN 1+ (NEGATIVE); BLOOD NEGATIVE (NEGATIVE); CLARITY SL CLOUDY (CLEAR); COLOR YELLOW (YELLOW); GLUCOSE NEGATIVE (NEGATIVE); KETONE NEGATIVE (NEGATIVE); NITRITE NEGATIVE (NEGATIVE); UROBILINOGEN 0.2 E.U./dl (0.2-1.0)
[2020-04-09 17:16] LABS: LEUKO ESTERASE NEGATIVE (NEGATIVE)
[2020-04-09 17:26] LABS: CALCIUM OXALATE CRYSTALS 2+
[2020-04-09 17:27] LABS: BACTERIA 1+; MUCOUS 1+
[2020-04-09] MEDS ORDERED: LEVOFLOXACIN250 M2 PO (17:47)
== END 2020-04-09 17:53 | disposition home or self-care (01) ==
LOC: ED 14:58
PROVIDERS: Emergency Medicine
DX: N39.0 Urinary tract infection, site not specified (principal); F17.200 Nicotine dependence, unspecified, uncomplicated; Z88.0 Allergy status to penicillin; Z88.6 Allergy status to analgesic agent; Z88.2 Allergy status to sulfonamides; Z79.899 Other long term (current) drug therapy

== ENCOUNTER 2020-04-23 18:57 | Emergency (ER) | payer OTHER ==
[~2020-04-23] VITALS: Ht 167.6 cm; Wt 68.0 kg
[~2020-04-23 18:57] MED LIST changes: +LEVOFLOXACIN250 M2 PO
[2020-04-23 19:02] VITALS: BP 134/92
== END 2020-04-23 19:50 | disposition home or self-care (01) ==
LOC: ED 18:57
DX: T22.211A Burn of second degree of right forearm, initial encounter (principal); Z88.0 Allergy status to penicillin; Z88.2 Allergy status to sulfonamides; Z88.5 Allergy status to narcotic agent; Z88.8 Allergy status to other drugs, medicaments and biological substances; Z79.899 Other long term (current) drug therapy; X08.8XXA Exposure to other specified smoke, fire and flames, initial encounter; Y93.89 Activity, other specified; Y92.89 Other specified places as the place of occurrence of the external cause; Y99.8 Other external cause status

== ENCOUNTER 2020-04-24 21:29 | Emergency (ER) | payer OTHER ==
[~2020-04-24] VITALS: Wt 68.0 kg
[2020-04-24 21:34] VITALS: BP 139/74
== END 2020-04-24 22:15 | disposition home or self-care (01) ==
LOC: ED 21:29
DX: T22.111A Burn of first degree of right forearm, initial encounter (principal); F17.200 Nicotine dependence, unspecified, uncomplicated; Z79.899 Other long term (current) drug therapy; Z88.0 Allergy status to penicillin; Z88.2 Allergy status to sulfonamides; Z88.6 Allergy status to analgesic agent; Z88.8 Allergy status to other drugs, medicaments and biological substances; X08.8XXA Exposure to other specified smoke, fire and flames, initial encounter; Y93.89 Activity, other specified; Y92.89 Other specified places as the place of occurrence of the external cause; Y99.8 Other external cause status

== ENCOUNTER 2020-05-09 08:12 | Emergency (ER) | payer OTHER ==
[~2020-05-09] VITALS: Ht 167.6 cm; Wt 68.0 kg
[2020-05-09 08:25] VITALS: BP 136/72
== END 2020-05-09 10:29 | disposition home or self-care (01) ==
LOC: ED 08:12
DX: S66.911A Strain of unspecified muscle, fascia and tendon at wrist and hand level, right hand, initial encounter (principal); F17.200 Nicotine dependence, unspecified, uncomplicated; Z88.0 Allergy status to penicillin; Z88.2 Allergy status to sulfonamides; Z88.6 Allergy status to analgesic agent; Z88.8 Allergy status to other drugs, medicaments and biological substances; Z79.899 Other long term (current) drug therapy; X58.XXXA Exposure to other specified factors, initial encounter; Y93.89 Activity, other specified; Y92.89 Other specified places as the place of occurrence of the external cause; Y99.8 Other external cause status

== ENCOUNTER 2020-05-22 07:51 | Emergency (ER) | payer OTHER ==
[~2020-05-22] VITALS: Wt 68.0 kg
[2020-05-22 07:59] VITALS: BP 128/67
[2020-05-22] MEDS ORDERED: CLINDAMYCIN HC300 MG PO (08:28)
[2020-05-22] MEDS ORDERED: VISTARIL25 M2 PO (08:28)
== END 2020-05-22 08:37 | disposition home or self-care (01) ==
LOC: ED 07:51
DX: L73.9 Follicular disorder, unspecified (principal); L01.00 Impetigo, unspecified; G43.909 Migraine, unspecified, not intractable, without status migrainosus; F17.210 Nicotine dependence, cigarettes, uncomplicated; Z88.0 Allergy status to penicillin; Z88.6 Allergy status to analgesic agent; Z88.2 Allergy status to sulfonamides; Z88.8 Allergy status to other drugs, medicaments and biological substances; Z79.899 Other long term (current) drug therapy

== ENCOUNTER 2020-06-10 06:41 | Emergency (ER) | payer OTHER ==
[~2020-06-10] VITALS: Ht 170.1 cm; Wt 61.2 kg
[~2020-06-10 06:41] MED LIST changes: +VISTARIL25 M2 PO
[2020-06-10 06:45] VITALS: BP 139/78
[2020-06-10 07:52] LABS: HEMATOCRIT 35.1 % (37.0-47.0); MEAN CELL VOLUME 78.5 fl (81.0-99.0); MEAN CORPUSCULAR HGB CONC 29.3 g/dl (33.0-37.0); MEAN PLATELET VOLUME 10.3 fl (9.6-12.3); PLATELET COUNT AUTOMATED 632 10*3/uL (130-400); RED BLOOD COUNT 4.47 10*6/uL (4.10-5.10); RED CELL DISTRI WIDTH 18.8 % (0-14.5); WHITE BLOOD COUNT 13.6 10*3/uL (4.8-10.8)
[2020-06-10 08:07] LABS: ALBUMIN 4.2 gm/dl (3.1-4.5); ALKALINE PHOSPHATASE 76 U/L (45-117); BUN 7 mg/dl (7-24); CHLORIDE 109 mmol/L (98-107); CREATININE 0.58 mg/dL (0.55-1.02); ETHYL ALCOHOL < 3.0 mg/dl (<3); POTASSIUM 3.8 mmol/L (3.5-5.1); SGOT/AST 11 IU/L (3-35); SGPT/ALT 16 U/L (12-78); SODIUM 140 mmol/L (136-145); TOTAL PROTEIN 8.3 gm/dL (6.4-8.2)
[2020-06-10 08:13] LABS: URINE AMPHETAMINES < 1000 (1000ng/ml); URINE BARBITURATES < 200 (200ng/ml); URINE BENZODIAZEPINES < 200 (200ng/ml); URINE CANNABINOIDS (THC) < 50 (50ng/ml); URINE COCAINE < 300 (300ng/ml); URINE METHADONE < 300 (300ng/ml); URINE OPIATES < 300 (300ng/ml); URINE PHENCYCLIDINE < 25 (25ng/ml)
[2020-06-10 08:16] LABS: BASOPHILS 1 % (0-1); MICROCYTOSIS SLIGHT; PLATELET SUFFICIENCY HIGH (NORMAL); TOTAL CELLS COUNTED 100 #CELLS
== END 2020-06-10 15:33 | disposition short-term general hospital (02) ==
LOC: ED 06:41
PROVIDERS: Emergency Medicine
DX: F39 Unspecified mood [affective] disorder (principal); F17.200 Nicotine dependence, unspecified, uncomplicated; Z88.0 Allergy status to penicillin; Z88.8 Allergy status to other drugs, medicaments and biological substances; Z88.5 Allergy status to narcotic agent; Z88.2 Allergy status to sulfonamides; Z79.899 Other long term (current) drug therapy; Z20.828 Contact with and (suspected) exposure to other viral communicable diseases

== ENCOUNTER 2020-08-30 15:09 | Emergency (ER) | payer OTHER ==
[~2020-08-30] VITALS: Ht 170.1 cm; Wt 63.5 kg
[2020-08-30 15:19] VITALS: BP 136/67
[2020-08-30] MEDS ORDERED: CLINDAMYCIN HC300 MG PO (15:52)
== END 2020-08-30 15:55 | disposition home or self-care (01) ==
LOC: ED 15:09
DX: N63.0 Unspecified lump in unspecified breast (principal); F17.200 Nicotine dependence, unspecified, uncomplicated; Z88.0 Allergy status to penicillin; Z88.2 Allergy status to sulfonamides; Z88.6 Allergy status to analgesic agent; Z88.8 Allergy status to other drugs, medicaments and biological substances; Z79.899 Other long term (current) drug therapy

== ENCOUNTER 2020-09-01 13:51 | Emergency (ER) | payer OTHER ==
[2020-09-01 14:12] VITALS: BP 122/69
== END 2020-09-01 15:05 | disposition home or self-care (01) ==
LOC: ED 13:51
DX: N64.4 Mastodynia (principal); F20.9 Schizophrenia, unspecified; F17.200 Nicotine dependence, unspecified, uncomplicated; Z88.0 Allergy status to penicillin; Z88.2 Allergy status to sulfonamides; Z88.6 Allergy status to analgesic agent; Z88.8 Allergy status to other drugs, medicaments and biological substances; Z79.2 Long term (current) use of antibiotics; Z79.899 Other long term (current) drug therapy; Z87.442 Personal history of urinary calculi

== ENCOUNTER → 2020-09-02 | Outpatient (CLI) | payer OTHER | END | disposition home or self-care (01) | LOC: MAMMO 07-31 09:00 → US 07-31 09:00 → MAMMO 09-01 00:26 | PROVIDERS: ATTEND Family Medicine | DX: D24.1 Benign neoplasm of right breast (principal); R92.2 Inconclusive mammogram; N63.10 Unspecified lump in the right breast, unspecified quadrant ==

== ENCOUNTER 2020-10-21 14:15 | Emergency (ER) | payer OTHER ==
[~2020-10-21] VITALS: Ht 170.1 cm; Wt 61.2 kg
[2020-10-21 14:26] VITALS: BP 125/64
[2020-10-21] MEDS ORDERED: ACYCLOVIR800 MG PO (14:54)
[2020-10-21] MEDS ORDERED: VISTARIL25 MG PO (14:54)
[2020-10-21] MEDS ORDERED: HYDROCODONE-AC1 EAC1 PO (14:54)
== END 2020-10-21 15:01 | disposition home or self-care (01) ==
LOC: ED 14:15
DX: B02.9 Zoster without complications (principal); F17.200 Nicotine dependence, unspecified, uncomplicated; Z88.0 Allergy status to penicillin; Z88.6 Allergy status to analgesic agent; Z88.8 Allergy status to other drugs, medicaments and biological substances; Z88.2 Allergy status to sulfonamides; Z79.899 Other long term (current) drug therapy

== ENCOUNTER 2020-10-23 11:41 | Emergency (ER) | payer OTHER ==
[~2020-10-23] VITALS: Wt 61.2 kg
[~2020-10-23 11:41] MED LIST changes: +HYDROCODONE-AC1 EAC1 PO; +VISTARIL25 MG PO
[2020-10-23 11:46] VITALS: BP 127/67
[2020-10-23] MEDS ORDERED: Bactroban Oint22 GM T (12:06)
[2020-10-23] MEDS ORDERED: CLINDAMYCIN HC300 MG PO (12:06)
== END 2020-10-23 12:09 | disposition home or self-care (01) ==
LOC: ED 11:41
DX: L01.09 Other impetigo (principal); L08.89 Other specified local infections of the skin and subcutaneous tissue; F17.200 Nicotine dependence, unspecified, uncomplicated; G43.909 Migraine, unspecified, not intractable, without status migrainosus; Z79.899 Other long term (current) drug therapy; Z88.0 Allergy status to penicillin; Z88.2 Allergy status to sulfonamides; Z88.6 Allergy status to analgesic agent; Z88.5 Allergy status to narcotic agent

== ENCOUNTER 2020-12-26 12:19 | Emergency (ER) | payer OTHER ==
[~2020-12-26] VITALS: Ht 170.1 cm; Wt 56.7 kg
[~2020-12-26 12:19] MED LIST changes: +Bactroban Oint22 GM T
[2020-12-26 12:33] VITALS: BP 117/63
[2020-12-26 13:14] LABS: BASO # 0.1 10*3/uL (0.0-0.1); BASO % 0.6 % (0.0-1.0); EOS # 0.2 10*3/uL (0.0-0.4); EOS % 2.3 % (1.0-4.0); HEMATOCRIT 26.9 % (37.0-47.0); LYMPH # 1.5 10*3/uL (1.3-4.4); LYMPH % 16.2 % (27.0-41.0); MEAN CORPUSCULAR HGB 21.4 pg (27.0-31.0); MEAN CORPUSCULAR HGB CONC 30.1 g/dl (33.0-37.0); MEAN PLATELET VOLUME 9.4 fl (9.6-12.3); MONO # 0.7 10*3/uL (0.1-1.0); MONO % 7.8 % (3.0-9.0); NEUT # 6.8 10*3/uL (2.3-7.9); NEUT % 72.7 % (47.0-73.0); PLATELET COUNT AUTOMATED 545 10*3/uL (130-400); RED BLOOD COUNT 3.79 10*6/uL (4.10-5.10); RED CELL DISTRI WIDTH 18.9 % (0-14.5); WHITE BLOOD COUNT 9.3 10*3/uL (4.8-10.8)
[2020-12-26 13:28] LABS: ACT PARTIAL THROMBO TIME 23.7 SECONDS (20.0-32.1)
[2020-12-26 13:38] LABS: ALBUMIN 3.1 gm/dl (3.1-4.5); ALKALINE PHOSPHATASE 79 U/L (45-117); BUN 11 mg/dl (7-24); CHLORIDE 107 mmol/L (98-107); CREATININE 0.78 mg/dL (0.55-1.02); LIPASE 84 U/L (73-393); POTASSIUM 3.5 mmol/L (3.5-5.1); SGOT/AST 9 IU/L (3-35); SGPT/ALT 15 U/L (12-78); SODIUM 141 mmol/L (136-145); TOTAL PROTEIN 6.8 gm/dL (6.4-8.2)
[2020-12-26 13:41] LABS: TROPONIN I < 0.015 ng/ml (<0.045)
[2020-12-26 13:49] LABS: BILIRUBIN Negative (Negative); BLOOD 2+ (Negative); CLARITY Turbid (Clear); COLOR Yellow (Yellow); GLUCOSE Negative (Negative); KETONE Trace (Negative); LEUKO ESTERASE 1+ (Negative); NITRITE Negative (Negative); PH 6.5 (4.5-8.0); SPECIFIC GRAVITY >= 1.030 (1.001-1.030)
[2020-12-26 14:07] LABS: BACTERIA 3+; EPITHELIAL CELLS 31-40
[2020-12-26] MEDS ORDERED: PROVENTIL HFA6.7 GM INH (15:30)
[2020-12-26] MEDS ORDERED: PREDNISONE20 M1 PO (15:30)
== END 2020-12-26 15:56 | disposition home or self-care (01) ==
LOC: ED 12:19
PROVIDERS: Physician Assistant
DX: J40 Bronchitis, not specified as acute or chronic (principal); F17.200 Nicotine dependence, unspecified, uncomplicated; Z20.822 Contact with and (suspected) exposure to COVID-19; Z88.0 Allergy status to penicillin; Z88.2 Allergy status to sulfonamides; Z88.8 Allergy status to other drugs, medicaments and biological substances; Z79.899 Other long term (current) drug therapy; Z98.890 Other specified postprocedural states

== ENCOUNTER 2021-05-05 11:52 | Emergency (ER) | payer OTHER ==
[~2021-05-05] VITALS: Wt 52.2 kg
[~2021-05-05 11:52] MED LIST changes: +PROVENTIL HFA6.7 GM INH
[2021-05-05 11:54] VITALS: BP 135/67
[2021-05-05] MEDS ORDERED: VALTREX1000 MG PO ×2 (12:12)
[2021-05-05] MEDS ORDERED: HYDROCODONE-AC1 EAC1 PO ×2 (12:12)
== END 2021-05-05 12:21 | disposition home or self-care (01) ==
LOC: ED 11:52
DX: B02.9 Zoster without complications (principal)

== ENCOUNTER 2021-05-19 08:10 | Inpatient (IN) | payer OTHER ==
[~2021-05-19] VITALS: Ht 162.6 cm; Wt 52.6 kg
[2021-05-19] VITALS (11 sets, daily range): BP systolic 114–160; BP diastolic 57–80
[2021-05-19 08:29] LABS: HEMATOCRIT 24.3 % (37.0-47.0); MEAN CELL VOLUME 69.4 fl (81.0-99.0); MEAN CORPUSCULAR HGB 19.1 pg (27.0-31.0); MEAN CORPUSCULAR HGB CONC 27.6 g/dl (33.0-37.0); MEAN PLATELET VOLUME 9.7 fl (9.6-12.3); PLATELET COUNT AUTOMATED 687 10*3/uL (130-400); RED CELL DISTRI WIDTH 19.2 % (0-14.5); WHITE BLOOD COUNT 12.2 10*3/uL (4.8-10.8)
[2021-05-19 08:48] LABS: BASOPHILS 2 % (0-1); MICROCYTOSIS MODERATE; PLATELET SUFFICIENCY HIGH (NORMAL); POLYCHROMASIA SLIGHT; SCHISTOCYTES FEW; TOTAL CELLS COUNTED 100 #CELLS
[2021-05-19 08:49] LABS: ACANTHOCYTES FEW
[2021-05-19] MEDS ORDERED: VRAYLAR4.5 MG PO (08:57)
[2021-05-19] MEDS ORDERED: BUSPAR15 MG PO (08:58)
[2021-05-19] MEDS ORDERED: CITALOPRAM10 MG PO (08:59)
[2021-05-19 09:02] LABS: ALBUMIN 3.1 gm/dl (3.1-4.5); ALKALINE PHOSPHATASE 61 U/L (45-117); BUN 16 mg/dl (7-24); CHLORIDE 106 mmol/L (98-107); CREATININE 0.49 mg/dL (0.55-1.02); POTASSIUM 3.8 mmol/L (3.5-5.1); SGOT/AST 12 IU/L (3-35); SGPT/ALT 10 U/L (12-78); SODIUM 138 mmol/L (136-145); TOTAL PROTEIN 6.7 gm/dL (6.4-8.2)
[2021-05-19 09:03] LABS: TROPONIN I < 0.015 ng/ml (<0.045)
[2021-05-19 09:59] LABS: IRON 9 ug/dL (50-170); TOTAL IRON BINDING CAPACITY 457 ug/dl (250-450)
[2021-05-19 10:04] LABS: RETICULOCYTE % 1.86 % (0.50-2.50)
[2021-05-19 10:21] LABS: FERRITIN 3.9 ng/mL (10.0-291.0)
== END 2021-05-19 20:35 | disposition left against medical advice (07) | DRG 532 ==
LOC: ED 08:10 → 4E 09:16 → EDHOLD 09:16 → 4E 09:40
PROVIDERS: Emergency Medicine; Internal Medicine; ADMIT Internal Medicine; ATTEND Internal Medicine
PROC: 30233N1 Transfusion of Nonautologous Red Blood Cells into Peripheral Vein, Percutaneous Approach (ICD-10-PCS; principal; 2021-05-19)
DX: N92.0 Excessive and frequent menstruation with regular cycle (principal); D50.9 Iron deficiency anemia, unspecified; R07.9 Chest pain, unspecified; D47.3 Essential (hemorrhagic) thrombocythemia; F17.210 Nicotine dependence, cigarettes, uncomplicated; Z53.29 Procedure and treatment not carried out because of patient's decision for other reasons; F41.9 Anxiety disorder, unspecified; F34.1 Dysthymic disorder; F25.9 Schizoaffective disorder, unspecified; G43.909 Migraine, unspecified, not intractable, without status migrainosus; D72.829 Elevated white blood cell count, unspecified; Z88.0 Allergy status to penicillin; Z88.2 Allergy status to sulfonamides; Z88.6 Allergy status to analgesic agent; Z88.8 Allergy status to other drugs, medicaments and biological substances; Z88.5 Allergy status to narcotic agent; Z82.49 Family history of ischemic heart disease and other diseases of the circulatory system; Z87.442 Personal history of urinary calculi; Z79.899 Other long term (current) drug therapy; Z71.6 Tobacco abuse counseling; Z83.2 Family history of diseases of the blood and blood-forming organs and certain disorders involving the immune mechanism; R65.10 Systemic inflammatory response syndrome (SIRS) of non-infectious origin without acute organ dysfunction

== ENCOUNTER 2021-05-23 22:09 | Emergency (ER) | payer OTHER ==
[~2021-05-23] VITALS: Ht 170.1 cm; Wt 52.2 kg
[~2021-05-23 22:09] MED LIST changes: +BUSPAR15 MG PO; +CITALOPRAM10 MG PO; +VRAYLAR4.5 MG PO
[2021-05-23 22:20] VITALS: BP 146/84
[2021-05-23 23:07] LABS: BASO % 0.4 % (0.0-1.0); EOS # 0.5 10*3/uL (0.0-0.4); EOS % 4.3 % (1.0-4.0); HEMATOCRIT 26.2 % (37.0-47.0); LYMPH # 2.7 10*3/uL (1.3-4.4); LYMPH % 24.9 % (27.0-41.0); MEAN CELL VOLUME 68.9 fl (81.0-99.0); MEAN CORPUSCULAR HGB 19.5 pg (27.0-31.0); MEAN CORPUSCULAR HGB CONC 28.2 g/dl (33.0-37.0); MEAN PLATELET VOLUME 9.6 fl (9.6-12.3); MONO # 1.1 10*3/uL (0.1-1.0); MONO % 10.4 % (3.0-9.0); NEUT # 6.4 10*3/uL (2.3-7.9); NEUT % 59.6 % (47.0-73.0); PLATELET COUNT AUTOMATED 584 10*3/uL (130-400); RED CELL DISTRI WIDTH 19.5 % (0-14.5); WHITE BLOOD COUNT 10.7 10*3/uL (4.8-10.8)
[2021-05-23 23:19] LABS: ALBUMIN 3.2 gm/dl (3.1-4.5); ALKALINE PHOSPHATASE 60 U/L (45-117); BUN 11 mg/dl (7-24); CHLORIDE 106 mmol/L (98-107); CREATININE 0.55 mg/dL (0.55-1.02); POTASSIUM 3.9 mmol/L (3.5-5.1); SGOT/AST 12 IU/L (3-35); SGPT/ALT 12 U/L (12-78); SODIUM 137 mmol/L (136-145); TOTAL PROTEIN 6.6 gm/dL (6.4-8.2)
[2021-05-23 23:27] LABS: TROPONIN I < 0.015 ng/ml (<0.045)
== END 2021-05-24 00:32 | disposition left against medical advice (07) ==
LOC: ED 22:09
PROVIDERS: Internal Medicine
DX: R07.9 Chest pain, unspecified (principal); D50.0 Iron deficiency anemia secondary to blood loss (chronic); Z88.0 Allergy status to penicillin; Z88.2 Allergy status to sulfonamides; Z88.6 Allergy status to analgesic agent; Z88.8 Allergy status to other drugs, medicaments and biological substances; Z79.899 Other long term (current) drug therapy; Z87.891 Personal history of nicotine dependence

== ENCOUNTER 2021-05-24 04:54 | Emergency (ER) | payer OTHER ==
[~2021-05-24] VITALS: Ht 154.9 cm; Wt 52.2 kg
[2021-05-24 05:00] VITALS: BP 132/75
[2021-05-24 06:00] LABS: BASO # 0.1 10*3/uL (0.0-0.1); BASO % 0.7 % (0.0-1.0); EOS # 0.5 10*3/uL (0.0-0.4); EOS % 4.9 % (1.0-4.0); HEMATOCRIT 27.8 % (37.0-47.0); LYMPH # 2.5 10*3/uL (1.3-4.4); LYMPH % 24.2 % (27.0-41.0); MEAN CELL VOLUME 70.9 fl (81.0-99.0); MEAN CORPUSCULAR HGB 19.9 pg (27.0-31.0); MEAN CORPUSCULAR HGB CONC 28.1 g/dl (33.0-37.0); MEAN PLATELET VOLUME 9.7 fl (9.6-12.3); MONO # 1.3 10*3/uL (0.1-1.0); NEUT # 5.9 10*3/uL (2.3-7.9); NEUT % 56.9 % (47.0-73.0); PLATELET COUNT AUTOMATED 582 10*3/uL (130-400); RED BLOOD COUNT 3.92 10*6/uL (4.10-5.10); RED CELL DISTRI WIDTH 19.9 % (0-14.5); WHITE BLOOD COUNT 10.3 10*3/uL (4.8-10.8)
== END 2021-05-24 07:02 | disposition home or self-care (01) ==
LOC: ED 04:54
PROVIDERS: Internal Medicine
DX: R07.9 Chest pain, unspecified (principal); D50.9 Iron deficiency anemia, unspecified; F17.200 Nicotine dependence, unspecified, uncomplicated; Z88.0 Allergy status to penicillin; Z88.2 Allergy status to sulfonamides; Z88.6 Allergy status to analgesic agent; Z88.8 Allergy status to other drugs, medicaments and biological substances; Z79.899 Other long term (current) drug therapy

== ENCOUNTER 2021-09-05 22:57 | Emergency (ER) | payer OTHER ==
[~2021-09-05] VITALS: Ht 170.1 cm; Wt 52.2 kg
[2021-09-05 23:13] VITALS: BP 120/61
[2021-09-05] MEDS ORDERED: PAROXETINE HCL10 MG PO (23:18)
== END 2021-09-06 01:42 | disposition home or self-care (01) ==
LOC: ED 22:57
DX: N20.0 Calculus of kidney (principal); K59.00 Constipation, unspecified; F17.200 Nicotine dependence, unspecified, uncomplicated; Z79.899 Other long term (current) drug therapy; Z88.0 Allergy status to penicillin; Z88.2 Allergy status to sulfonamides; Z88.6 Allergy status to analgesic agent; Z88.5 Allergy status to narcotic agent

== ENCOUNTER 2021-11-17 05:44 | Emergency (ER) | payer OTHER ==
[~2021-11-17] VITALS: Ht 170.1 cm; Wt 59.0 kg
[~2021-11-17 05:44] MED LIST changes: +PAROXETINE HCL10 MG PO
[2021-11-17 06:17] LABS: BASO % 0.2 % (0.0-1.0); EOS # 0.6 10*3/uL (0.0-0.4); EOS % 5.9 % (1.0-4.0); HEMATOCRIT 28.6 % (37.0-47.0); LYMPH # 1.6 10*3/uL (1.3-4.4); LYMPH % 16.3 % (27.0-41.0); MEAN CELL VOLUME 66.7 fl (81.0-99.0); MEAN CORPUSCULAR HGB 18.6 pg (27.0-31.0); MONO # 0.6 10*3/uL (0.1-1.0); MONO % 6.2 % (3.0-9.0); NEUT # 6.9 10*3/uL (2.3-7.9); NEUT % 71.1 % (47.0-73.0); PLATELET COUNT AUTOMATED 606 10*3/uL (130-400); RED BLOOD COUNT 4.29 10*6/uL (4.10-5.10); RED CELL DISTRI WIDTH 19.2 % (0-14.5); WHITE BLOOD COUNT 9.8 10*3/uL (4.8-10.8)
[2021-11-17 06:29] LABS: ALKALINE PHOSPHATASE 77 U/L (45-117); BUN 20 mg/dl (7-24); CHLORIDE 111 mmol/L (98-107); CREATININE 0.73 mg/dL (0.55-1.02); POTASSIUM 3.9 mmol/L (3.5-5.1); SGOT/AST 16 IU/L (3-35); SGPT/ALT 19 U/L (12-78); SODIUM 138 mmol/L (136-145); TOTAL PROTEIN 7.6 gm/dL (6.4-8.2)
[2021-11-17 06:31] LABS: ACT PARTIAL THROMBO TIME 24.9 SECONDS (20.0-32.1)
[2021-11-17 08:55] VITALS: BP 111/54
== END 2021-11-17 09:27 | disposition home or self-care (01) ==
LOC: ED 05:44
PROVIDERS: Internal Medicine
DX: R07.9 Chest pain, unspecified (principal); R06.02 Shortness of breath; Z88.0 Allergy status to penicillin; Z88.2 Allergy status to sulfonamides; Z88.6 Allergy status to analgesic agent; Z88.8 Allergy status to other drugs, medicaments and biological substances; Z79.899 Other long term (current) drug therapy; Z87.891 Personal history of nicotine dependence; Z98.890 Other specified postprocedural states

== ENCOUNTER 2022-02-08 20:05 | Emergency (ER) | payer OTHER ==
[~2022-02-08] VITALS: Ht 170.1 cm; Wt 56.7 kg
[2022-02-08 20:55] VITALS: BP 130/95
[2022-02-08 22:57] LABS: HEMATOCRIT 24.7 % (37.0-47.0); MEAN CELL VOLUME 66.9 fl (81.0-99.0); MEAN CORPUSCULAR HGB 18.2 pg (27.0-31.0); MEAN CORPUSCULAR HGB CONC 27.1 g/dl (33.0-37.0); MEAN PLATELET VOLUME 8.7 fl (9.6-12.3); PLATELET COUNT AUTOMATED 568 10*3/uL (130-400); RED BLOOD COUNT 3.69 10*6/uL (4.10-5.10); RED CELL DISTRI WIDTH 19.5 % (0-14.5)
[2022-02-08 22:59] LABS: MANUAL DIFF REFLEX YES
[2022-02-08 23:12] LABS: ALKALINE PHOSPHATASE 68 U/L (45-117); BUN 10 mg/dl (7-24); CHLORIDE 107 mmol/L (98-107); CREATININE 0.59 mg/dL (0.55-1.02); POTASSIUM 3.8 mmol/L (3.5-5.1); SGOT/AST 17 IU/L (3-35); SGPT/ALT 18 U/L (12-78); SODIUM 139 mmol/L (136-145); TOTAL PROTEIN 6.9 gm/dL (6.4-8.2)
[2022-02-08 23:19] LABS: BASOPHILS 1 % (0-1); PLATELET SUFFICIENCY HIGH (NORMAL); TOTAL CELLS COUNTED 100 #CELLS
[2022-02-08 23:20] LABS: MICROCYTOSIS MODERATE
[2022-02-12] MEDS ORDERED: CIPROFLOXA500 MG/5 M PO (22:41)
== END 2022-02-09 00:49 | disposition left against medical advice (07) ==
LOC: ED 20:05
PROVIDERS: Emergency Medicine
DX: D64.9 Anemia, unspecified (principal); B02.9 Zoster without complications; Z88.0 Allergy status to penicillin; Z88.6 Allergy status to analgesic agent; Z88.8 Allergy status to other drugs, medicaments and biological substances; Z87.891 Personal history of nicotine dependence

== ENCOUNTER 2022-02-09 12:09 | Emergency (ER) | payer OTHER ==
[2022-02-09] VITALS (15 sets, daily range): BP systolic 98–128; BP diastolic 43–78
[~2022-02-09] VITALS: Wt 54.4 kg
[2022-02-09 13:05] LABS: HEMATOCRIT 23.5 % (37.0-47.0); MANUAL DIFF REFLEX YES; MEAN CELL VOLUME 66.8 fl (81.0-99.0); MEAN CORPUSCULAR HGB 18.2 pg (27.0-31.0); MEAN CORPUSCULAR HGB CONC 27.2 g/dl (33.0-37.0); MEAN PLATELET VOLUME 8.8 fl (9.6-12.3); PLATELET COUNT AUTOMATED 540 10*3/uL (130-400); RED BLOOD COUNT 3.52 10*6/uL (4.10-5.10); RED CELL DISTRI WIDTH 19.4 % (0-14.5); WHITE BLOOD COUNT 9.7 10*3/uL (4.8-10.8)
[2022-02-09 13:22] LABS: BUN 6 mg/dl (7-24); CHLORIDE 106 mmol/L (98-107); CREATININE 0.56 mg/dL (0.55-1.02); POTASSIUM 3.8 mmol/L (3.5-5.1); SODIUM 135 mmol/L (136-145)
[2022-02-09 13:24] LABS: ATYPICAL LYMPHS 2 % (0-0); TOTAL CELLS COUNTED 100 #CELLS
[2022-02-09 13:25] LABS: MICROCYTOSIS MODERATE; OVALOCYTES FEW; PLATELET SUFFICIENCY HIGH (NORMAL); POLYCHROMASIA SLIGHT; TARGET CELLS FEW
[2022-02-09 18:55] LABS: BASO # 0.1 10*3/uL (0.0-0.1); BASO % 0.8 % (0.0-1.0); EOS # 0.4 10*3/uL (0.0-0.4); EOS % 3.2 % (1.0-4.0); HEMATOCRIT 27.8 % (37.0-47.0); LYMPH # 3.4 10*3/uL (1.3-4.4); LYMPH % 30.7 % (27.0-41.0); MEAN CELL VOLUME 69.5 fl (81.0-99.0); MEAN CORPUSCULAR HGB 19.8 pg (27.0-31.0); MEAN CORPUSCULAR HGB CONC 28.4 g/dl (33.0-37.0); MEAN PLATELET VOLUME 9.2 fl (9.6-12.3); MONO % 8.8 % (3.0-9.0); NEUT # 6.3 10*3/uL (2.3-7.9); NEUT % 56.2 % (47.0-73.0); PLATELET COUNT AUTOMATED 526 10*3/uL (130-400); RED CELL DISTRI WIDTH 21.5 % (0-14.5); WHITE BLOOD COUNT 11.2 10*3/uL (4.8-10.8)
[2022-02-12] MEDS ORDERED: CIPROFLOXA500 MG/5 M PO (22:41)
== END 2022-02-09 22:34 | disposition home or self-care (01) ==
LOC: ED 12:09
PROVIDERS: Emergency Medicine
DX: D64.9 Anemia, unspecified (principal); E87.1 Hypo-osmolality and hyponatremia; Z88.0 Allergy status to penicillin; Z88.2 Allergy status to sulfonamides; Z88.8 Allergy status to other drugs, medicaments and biological substances; F17.200 Nicotine dependence, unspecified, uncomplicated

== ENCOUNTER 2022-07-01 23:04 | Emergency (ER) | payer OTHER ==
[~2022-07-01] VITALS: Ht 170.1 cm; Wt 61.2 kg
[~2022-07-01 23:04] MED LIST changes: +CIPROFLOXA500 MG/5 M PO
[2022-07-01 23:13] VITALS: BP 137/99
[2022-07-01] MEDS ORDERED: PAXIL10 MG PO (23:14)
[2022-07-02] MEDS ORDERED: VALTREX1000 MG PO (01:24)
[2022-07-02] MEDS ORDERED: CLINDAMYCIN HC300 MG PO (01:24)
== END 2022-07-02 01:37 | disposition home or self-care (01) ==
LOC: ED 23:04
DX: B02.9 Zoster without complications (principal); L08.89 Other specified local infections of the skin and subcutaneous tissue; F17.200 Nicotine dependence, unspecified, uncomplicated; Z79.899 Other long term (current) drug therapy; Z88.0 Allergy status to penicillin; Z88.2 Allergy status to sulfonamides; Z88.6 Allergy status to analgesic agent

== ENCOUNTER 2022-07-27 15:08 | Emergency (ER) | payer OTHER | END 2022-07-27 16:38 | disposition left against medical advice (07) | LOC: ED 15:08 | DX: Z53.21 Procedure and treatment not carried out due to patient leaving prior to being seen by health care provider (principal) ==

== ENCOUNTER 2022-08-02 09:38 | Emergency (ER) | payer OTHER ==
[~2022-08-02] VITALS: Ht 167.6 cm; Wt 59.0 kg
[2022-08-02 10:28] LABS: BASO # 0.1 10*3/uL (0.0-0.1); BASO % 0.8 % (0.0-1.0); EOS % 0.3 % (1.0-4.0); HEMATOCRIT 25.2 % (37.0-47.0); LYMPH # 2.3 10*3/uL (1.3-4.4); LYMPH % 24.8 % (27.0-41.0); MEAN CELL VOLUME 67.2 fl (81.0-99.0); MEAN CORPUSCULAR HGB 19.2 pg (27.0-31.0); MEAN CORPUSCULAR HGB CONC 28.6 g/dl (33.0-37.0); MONO % 10.7 % (3.0-9.0); NEUT # 5.8 10*3/uL (2.3-7.9); NEUT % 63.2 % (47.0-73.0); PLATELET COUNT AUTOMATED 357 10*3/uL (130-400); RED BLOOD COUNT 3.75 10*6/uL (4.10-5.10); RED CELL DISTRI WIDTH 19.1 % (0-14.5); WHITE BLOOD COUNT 9.2 10*3/uL (4.8-10.8)
[2022-08-02 10:39] LABS: ACT PARTIAL THROMBO TIME 26.4 SECONDS (20.0-32.1)
[2022-08-02 10:47] LABS: ALKALINE PHOSPHATASE 66 U/L (45-117); BUN 11 mg/dl (7-24); CHLORIDE 107 mmol/L (98-107); CREATININE 0.59 mg/dL (0.55-1.02); LIPASE 78 U/L (73-393); POTASSIUM 3.8 mmol/L (3.5-5.1); SGOT/AST 26 IU/L (3-35); SGPT/ALT 26 U/L (12-78); SODIUM 140 mmol/L (136-145); TOTAL PROTEIN 6.7 gm/dL (6.4-8.2)
[2022-08-02 10:49] LABS: B-hCG (QUALITATIVE) NEGATIVE (NEGATIVE)
[2022-08-02 13:01] VITALS: BP 104/50
[2022-08-02 13:15] VITALS: BP 106/68
[2022-08-02 13:45] VITALS: BP 110/60
[2022-08-02 14:47] VITALS: BP 120/86
[2022-08-02 15:24] VITALS: BP 122/62
== END 2022-08-02 15:24 | disposition home or self-care (01) ==
LOC: ED 09:38
PROVIDERS: Family Medicine
DX: D64.9 Anemia, unspecified (principal); Z88.0 Allergy status to penicillin; Z88.2 Allergy status to sulfonamides; Z88.6 Allergy status to analgesic agent; Z88.8 Allergy status to other drugs, medicaments and biological substances; Z79.899 Other long term (current) drug therapy; Z98.890 Other specified postprocedural states; Z87.891 Personal history of nicotine dependence

== ENCOUNTER 2022-10-13 13:45 | Emergency (ER) | payer OTHER ==
[~2022-10-13] VITALS: Wt 59.0 kg
[2022-10-13 14:03] VITALS: BP 128/65
[2022-10-13] MEDS ORDERED: VALTREX1000 MG PO (14:43)
[2022-10-13] MEDS ORDERED: Percocet 325 MG1 TAB PO (14:44)
== END 2022-10-13 15:00 | disposition home or self-care (01) ==
LOC: ED 13:45
DX: B02.9 Zoster without complications (principal); Z88.0 Allergy status to penicillin; Z88.2 Allergy status to sulfonamides; Z88.5 Allergy status to narcotic agent; Z88.8 Allergy status to other drugs, medicaments and biological substances; Z98.890 Other specified postprocedural states; F17.200 Nicotine dependence, unspecified, uncomplicated

== ENCOUNTER 2022-11-20 15:37 | Emergency (ER) | payer BC ==
[~2022-11-20] VITALS: Ht 167.6 cm; Wt 61.2 kg
[~2022-11-20 15:37] MED LIST changes: +Percocet 325 MG1 TAB PO
[2022-11-20 16:02] VITALS: BP 139/65
[2022-11-20 16:54] LABS: BASO # 0.1 10*3/uL (0.0-0.1); BASO % 0.7 % (0.0-1.0); EOS # 0.3 10*3/uL (0.0-0.4); HEMATOCRIT 27.4 % (37.0-47.0); LYMPH # 3.2 10*3/uL (1.3-4.4); LYMPH % 36.6 % (27.0-41.0); MEAN CELL VOLUME 72.1 fl (81.0-99.0); MEAN CORPUSCULAR HGB 21.1 pg (27.0-31.0); MEAN CORPUSCULAR HGB CONC 29.2 g/dl (33.0-37.0); MEAN PLATELET VOLUME 9.1 fl (9.6-12.3); MONO # 0.9 10*3/uL (0.1-1.0); MONO % 10.3 % (3.0-9.0); NEUT # 4.3 10*3/uL (2.3-7.9); NEUT % 49.3 % (47.0-73.0); PLATELET COUNT AUTOMATED 410 10*3/uL (130-400); RED CELL DISTRI WIDTH 18.4 % (0-14.5); WHITE BLOOD COUNT 8.7 10*3/uL (4.8-10.8)
[2022-11-20 17:10] LABS: ALKALINE PHOSPHATASE 57 U/L (46-116); BUN 8 mg/dl (9-23); CHLORIDE 104 mmol/L (98-107); POTASSIUM 3.9 mmol/L (3.4-5.1); SGPT/ALT 9 U/L (10-49); TOTAL PROTEIN 6.7 gm/dL (6.0-8.0)
[2022-11-20 17:17] LABS: BILIRUBIN Negative (Negative); BLOOD 2+ (Negative); CLARITY Clear (Clear); COLOR Yellow (Yellow); GLUCOSE Negative (Negative); KETONE Negative (Negative); LEUKO ESTERASE Negative (Negative); NITRITE Negative (Negative); PH 6.5 (4.5-8.0); UROBILINOGEN 0.2 E.U./dl (0.0-1.0)
[2022-11-20 17:28] LABS: BACTERIA TRACE
== END 2022-11-20 17:53 | disposition home or self-care (01) ==
LOC: ED 15:37
PROVIDERS: Nurse Practitioner Family
DX: H10.33 Unspecified acute conjunctivitis, bilateral (principal); Z88.0 Allergy status to penicillin; Z88.2 Allergy status to sulfonamides; Z88.8 Allergy status to other drugs, medicaments and biological substances; Z96.651 Presence of right artificial knee joint; Z98.890 Other specified postprocedural states; F17.200 Nicotine dependence, unspecified, uncomplicated; Z79.899 Other long term (current) drug therapy

== ENCOUNTER 2022-11-29 15:34 | Emergency (ER) | payer BC ==
[~2022-11-29] VITALS: Wt 61.2 kg
[2022-11-29 15:47] VITALS: BP 132/58
[2022-11-29] MEDS ORDERED: VIBRAMYCIN100 MG PO ×2 (16:15→16:18)
== END 2022-11-29 17:29 | disposition home or self-care (01) ==
LOC: ED 15:34
DX: H10.9 Unspecified conjunctivitis (principal); Z88.0 Allergy status to penicillin; Z88.2 Allergy status to sulfonamides; Z88.6 Allergy status to analgesic agent; Z88.8 Allergy status to other drugs, medicaments and biological substances; Z79.899 Other long term (current) drug therapy; F17.200 Nicotine dependence, unspecified, uncomplicated

== ENCOUNTER 2023-03-22 06:01 | Emergency (ER) | payer MEDICAID ==
[~2023-03-22] VITALS: Ht 167.6 cm; Wt 59.0 kg
[2023-03-22 06:08] VITALS: BP 129/63
== END 2023-03-22 06:48 | disposition home or self-care (01) ==
LOC: ED 06:01
DX: H10.9 Unspecified conjunctivitis (principal); E87.1 Hypo-osmolality and hyponatremia; D64.9 Anemia, unspecified; F41.9 Anxiety disorder, unspecified; G43.909 Migraine, unspecified, not intractable, without status migrainosus; Z87.442 Personal history of urinary calculi; Z88.0 Allergy status to penicillin; Z88.2 Allergy status to sulfonamides; Z88.6 Allergy status to analgesic agent; Z88.5 Allergy status to narcotic agent; Z88.8 Allergy status to other drugs, medicaments and biological substances; Z98.890 Other specified postprocedural states; F17.200 Nicotine dependence, unspecified, uncomplicated

== ENCOUNTER 2023-05-04 09:18 | Inpatient (IN) | payer MEDICAID ==
[2023-05-04] VITALS (7 sets, daily range): BP systolic 101–128; BP diastolic 49–83
[~2023-05-04] VITALS: Ht 170.1 cm; Wt 59.6 kg
[2023-05-04 09:57] LABS: BASO % 0.5 % (0.0-1.0); EOS # 0.1 10*3/uL (0.0-0.4); EOS % 1.3 % (1.0-4.0); LYMPH # 1.2 10*3/uL (1.3-4.4); LYMPH % 13.3 % (27.0-41.0); MEAN CELL VOLUME 68.6 fl (81.0-99.0); MEAN CORPUSCULAR HGB 19.6 pg (27.0-31.0); MEAN CORPUSCULAR HGB CONC 28.6 g/dl (33.0-37.0); MONO # 0.5 10*3/uL (0.1-1.0); MONO % 6.1 % (3.0-9.0); NEUT # 6.8 10*3/uL (2.3-7.9); NEUT % 78.5 % (47.0-73.0); PLATELET COUNT AUTOMATED 420 10*3/uL (130-400); RED BLOOD COUNT 4.08 10*6/uL (4.10-5.10); RED CELL DISTRI WIDTH 19.4 % (0-14.5); WHITE BLOOD COUNT 8.6 10*3/uL (4.8-10.8)
[2023-05-04 10:07] LABS: ACT PARTIAL THROMBO TIME 25.9 SECONDS (20.0-32.1)
[2023-05-04 10:18] LABS: ALKALINE PHOSPHATASE 53 U/L (46-116); BUN 12 mg/dl (9-23); CHLORIDE 108 mmol/L (98-107); POTASSIUM 3.4 mmol/L (3.4-5.1); TOTAL PROTEIN 7.2 gm/dL (6.0-8.0)
[2023-05-04 10:19] LABS: SGPT/ALT < 7 U/L (10-49)
[2023-05-04 10:43] LABS: LIPASE 28 U/L (12-53)
[2023-05-04 10:51] LABS: BETA-HCG, QUANT < 3.0 mIU/mL (3-10)
[2023-05-05 05:55] VITALS: BP 104/47
[2023-05-05 06:51] LABS: BASO # 0.1 10*3/uL (0.0-0.1); BASO % 0.7 % (0.0-1.0); EOS # 0.3 10*3/uL (0.0-0.4); EOS % 3.3 % (1.0-4.0); HEMATOCRIT 28.5 % (37.0-47.0); LYMPH # 1.6 10*3/uL (1.3-4.4); LYMPH % 18.4 % (27.0-41.0); MEAN CELL VOLUME 70.4 fl (81.0-99.0); MEAN CORPUSCULAR HGB 19.3 pg (27.0-31.0); MEAN CORPUSCULAR HGB CONC 27.4 g/dl (33.0-37.0); MEAN PLATELET VOLUME 9.7 fl (9.6-12.3); MONO # 0.8 10*3/uL (0.1-1.0); MONO % 9.4 % (3.0-9.0); NEUT # 5.7 10*3/uL (2.3-7.9); PLATELET COUNT AUTOMATED 405 10*3/uL (130-400); RED BLOOD COUNT 4.05 10*6/uL (4.10-5.10); RED CELL DISTRI WIDTH 19.5 % (0-14.5); WHITE BLOOD COUNT 8.4 10*3/uL (4.8-10.8)
[2023-05-05 07:56] LABS: ALKALINE PHOSPHATASE 50 U/L (46-116); BUN 16 mg/dl (9-23); CHLORIDE 109 mmol/L (98-107); CHOLESTEROL 175 mg/dL (<200); LDL CHOLESTEROL 93 mg/dL (9-159); POTASSIUM 3.7 mmol/L (3.4-5.1); TOTAL PROTEIN 6.4 gm/dL (6.0-8.0); TRIGLYCERIDES 91 mg/dl (<150)
[2023-05-05 07:58] LABS: SGPT/ALT < 7 U/L (10-49); VITAMIN D, 25-HYDROXY 22.4 ng/mL (30-100)
[2023-05-05 08:00] VITALS: BP 118/65
[2023-05-06 04:06] LABS: HEMOGOLBIN A1C 5.6 % (4.8-5.6)
== END 2023-05-05 12:02 | disposition left against medical advice (07) | DRG 756 ==
LOC: ED 09:18 → 5E 11:00 → EDHOLD 11:00 → 5E 22:51
PROVIDERS: Emergency Medicine; Student in an Organized Health Care Education/Training Program; ADMIT Student in an Organized Health Care Education/Training Program; ATTEND Student in an Organized Health Care Education/Training Program
DX: F41.9 Anxiety disorder, unspecified (principal); F25.9 Schizoaffective disorder, unspecified; F17.210 Nicotine dependence, cigarettes, uncomplicated; D50.9 Iron deficiency anemia, unspecified; E87.8 Other disorders of electrolyte and fluid balance, not elsewhere classified; Z53.29 Procedure and treatment not carried out because of patient's decision for other reasons; R73.9 Hyperglycemia, unspecified; D75.839 Thrombocytosis, unspecified; Z82.49 Family history of ischemic heart disease and other diseases of the circulatory system; Z87.442 Personal history of urinary calculi; Z88.6 Allergy status to analgesic agent; Z88.0 Allergy status to penicillin; Z71.6 Tobacco abuse counseling

== ENCOUNTER 2023-08-05 16:06 | Emergency (ER) | payer MEDICAID ==
[~2023-08-05] VITALS: Ht 170.1 cm; Wt 61.2 kg
[2023-08-05 16:21] VITALS: BP 111/54
[2023-08-05] MEDS ORDERED: VIBRA-TAB100 MG PO (16:59)
[2023-08-05] MEDS ORDERED: HYDROCODONE-AC1 EAC1 PO (16:59)
[2023-08-05] MEDS ORDERED: VALTREX1000 MG PO (16:59)
== END 2023-08-05 17:25 | disposition home or self-care (01) ==
LOC: ED 16:06
DX: B02.9 Zoster without complications (principal); L02.212 Cutaneous abscess of back [any part, except buttock and flank]; D64.9 Anemia, unspecified; Z87.442 Personal history of urinary calculi; Z88.0 Allergy status to penicillin; Z88.2 Allergy status to sulfonamides; Z88.6 Allergy status to analgesic agent; Z88.8 Allergy status to other drugs, medicaments and biological substances; Z88.5 Allergy status to narcotic agent; Z98.890 Other specified postprocedural states; F17.200 Nicotine dependence, unspecified, uncomplicated

== ENCOUNTER 2023-11-30 15:02 | Emergency (ER) | payer MEDICAID ==
[~2023-11-30] VITALS: Ht 170.1 cm; Wt 59.0 kg
[~2023-11-30 15:02] MED LIST changes: +VIBRA-TAB100 MG PO
[2023-11-30 15:41] VITALS: BP 182/84
[2023-11-30] MEDS ORDERED: PREDNISONE50 MG PO (16:54)
== END 2023-11-30 16:54 | disposition home or self-care (01) ==
LOC: ED 15:02
DX: T49.2X1A Poisoning by local astringents and local detergents, accidental (unintentional), initial encounter (principal); L23.5 Allergic contact dermatitis due to other chemical products; D64.9 Anemia, unspecified; F17.210 Nicotine dependence, cigarettes, uncomplicated; Z88.0 Allergy status to penicillin; Z88.2 Allergy status to sulfonamides; Z88.6 Allergy status to analgesic agent; Z88.5 Allergy status to narcotic agent; Z88.8 Allergy status to other drugs, medicaments and biological substances; Z98.890 Other specified postprocedural states; Y92.89 Other specified places as the place of occurrence of the external cause

== ENCOUNTER 2024-02-07 08:36 | Emergency (ER) | payer MEDICAID ==
[~2024-02-07] VITALS: Ht 170.1 cm; Wt 59.0 kg
[~2024-02-07 08:36] MED LIST changes: +PREDNISONE50 MG PO
[2024-02-07 08:52] VITALS: BP 132/73
[2024-02-07] MEDS ORDERED: ACETAMINOPHEN 325 MG TAB PO ONE (09:00)
[2024-02-07] MEDS ORDERED: PREDNISONE20 M1 PO (23:40)
== END 2024-02-07 09:37 | disposition left against medical advice (07) ==
LOC: ED 08:36
DX: M79.672 Pain in left foot (principal); M79.89 Other specified soft tissue disorders; F25.9 Schizoaffective disorder, unspecified; F17.210 Nicotine dependence, cigarettes, uncomplicated; Z88.0 Allergy status to penicillin; Z88.2 Allergy status to sulfonamides; Z88.8 Allergy status to other drugs, medicaments and biological substances; Z88.6 Allergy status to analgesic agent; Z88.5 Allergy status to narcotic agent; Z79.899 Other long term (current) drug therapy; Z87.42 Personal history of other diseases of the female genital tract; Z53.21 Procedure and treatment not carried out due to patient leaving prior to being seen by health care provider

== ENCOUNTER 2024-02-07 21:53 | Emergency (ER) | payer MEDICAID ==
[~2024-02-07] VITALS: Ht 170.1 cm; Wt 59.0 kg
[2024-02-07 21:59] VITALS: BP 137/67
[2024-02-07] MEDS ORDERED: methylPREDNISolone sod succ 125 MG VIAL IM ONE (22:35)
[2024-02-07] MEDS ORDERED: PREDNISONE20 M1 PO (23:40)
== END 2024-02-08 00:02 | disposition home or self-care (01) ==
LOC: ED 21:53
DX: M10.072 Idiopathic gout, left ankle and foot (principal); F17.210 Nicotine dependence, cigarettes, uncomplicated; Z88.0 Allergy status to penicillin; Z88.2 Allergy status to sulfonamides; Z88.8 Allergy status to other drugs, medicaments and biological substances; Z88.6 Allergy status to analgesic agent; Z88.5 Allergy status to narcotic agent; Z79.899 Other long term (current) drug therapy; Z87.42 Personal history of other diseases of the female genital tract

== ENCOUNTER 2024-02-15 22:45 | Emergency (ER) | payer MEDICAID ==
[~2024-02-15] VITALS: Ht 170.1 cm; Wt 59.0 kg
[2024-02-15 23:16] LABS: BASO % 0.4 % (0.0-1.0); EOS # 0.4 10*3/uL (0.0-0.4); EOS % 3.9 % (1.0-4.0); HEMATOCRIT 27.2 % (37.0-47.0); LYMPH % 29.3 % (27.0-41.0); MEAN CELL VOLUME 71.2 fl (81.0-99.0); MEAN CORPUSCULAR HGB 19.9 pg (27.0-31.0); MEAN CORPUSCULAR HGB CONC 27.9 g/dl (33.0-37.0); MEAN PLATELET VOLUME 9.5 fl (9.6-12.3); MONO # 1.4 10*3/uL (0.1-1.0); MONO % 13.4 % (3.0-9.0); NEUT # 5.5 10*3/uL (2.3-7.9); NEUT % 52.6 % (47.0-73.0); PLATELET COUNT AUTOMATED 430 10*3/uL (130-400); RED BLOOD COUNT 3.82 10*6/uL (4.10-5.10); RED CELL DISTRI WIDTH 17.1 % (0-14.5); WHITE BLOOD COUNT 10.4 10*3/uL (4.8-10.8)
[2024-02-15 23:38] LABS: ALKALINE PHOSPHATASE 59 U/L (46-116); BUN 11 mg/dl (9-23); CHLORIDE 105 mmol/L (98-107); POTASSIUM 3.8 mmol/L (3.4-5.1); SGPT/ALT 10 U/L (5-49)
[2024-02-16] MEDS ORDERED: BUMETANIDE 1 MG TAB PO ONE (00:25)
[2024-02-16 02:00] VITALS: BP 108/60
== END 2024-02-16 02:04 | disposition home or self-care (01) ==
LOC: ED 22:45
PROVIDERS: Internal Medicine
DX: D50.9 Iron deficiency anemia, unspecified (principal); R07.89 Other chest pain; R60.0 Localized edema; F17.210 Nicotine dependence, cigarettes, uncomplicated; Z88.0 Allergy status to penicillin; Z88.2 Allergy status to sulfonamides; Z88.6 Allergy status to analgesic agent; Z88.8 Allergy status to other drugs, medicaments and biological substances; Z88.5 Allergy status to narcotic agent; Z79.899 Other long term (current) drug therapy; Z87.42 Personal history of other diseases of the female genital tract

== ENCOUNTER 2024-02-18 17:04 | Emergency (ER) | payer MEDICAID ==
[~2024-02-18] VITALS: Ht 170.1 cm; Wt 59.0 kg
[2024-02-18 17:43] LABS: BASO % 0.4 % (0.0-1.0); EOS # 0.3 10*3/uL (0.0-0.4); EOS % 2.8 % (1.0-4.0); LYMPH # 2.5 10*3/uL (1.3-4.4); MEAN CORPUSCULAR HGB 19.9 pg (27.0-31.0); MEAN PLATELET VOLUME 9.3 fl (9.6-12.3); MONO # 1.3 10*3/uL (0.1-1.0); MONO % 11.8 % (3.0-9.0); NEUT # 6.6 10*3/uL (2.3-7.9); NEUT % 61.6 % (47.0-73.0); PLATELET COUNT AUTOMATED 438 10*3/uL (130-400); RED BLOOD COUNT 3.52 10*6/uL (4.10-5.10); RED CELL DISTRI WIDTH 17.4 % (0-14.5); WHITE BLOOD COUNT 10.7 10*3/uL (4.8-10.8)
[2024-02-18 17:56] LABS: ACT PARTIAL THROMBO TIME 24.1 SECONDS (20.0-32.1)
[2024-02-18 18:00] LABS: BUN 8 mg/dl (9-23); CHLORIDE 107 mmol/L (98-107); POTASSIUM 2.8 mmol/L (3.4-5.1)
[2024-02-18] MEDS ORDERED: POTASSIUM CHLORIDE 20 MEQ TAB PO ONE (19:00)
[2024-02-18 19:38] VITALS: BP 116/68
== END 2024-02-18 20:09 | disposition left against medical advice (07) ==
LOC: ED 17:04
PROVIDERS: Physician Assistant Medical
DX: D64.9 Anemia, unspecified (principal); R07.89 Other chest pain; R06.02 Shortness of breath; R25.1 Tremor, unspecified; F41.9 Anxiety disorder, unspecified; F32.A Depression, unspecified; F17.210 Nicotine dependence, cigarettes, uncomplicated; Z53.29 Procedure and treatment not carried out because of patient's decision for other reasons; Z87.42 Personal history of other diseases of the female genital tract; Z88.0 Allergy status to penicillin; Z88.2 Allergy status to sulfonamides; Z88.6 Allergy status to analgesic agent; Z88.8 Allergy status to other drugs, medicaments and biological substances; Z88.5 Allergy status to narcotic agent; Z79.899 Other long term (current) drug therapy

== ENCOUNTER 2024-02-19 11:09 | Emergency (ER) | payer MEDICAID ==
[~2024-02-19] VITALS: Ht 170.1 cm; Wt 59.0 kg
[2024-02-19 11:21] VITALS: BP 126/61
[2024-02-19 12:06] LABS: BASO % 0.3 % (0.0-1.0); EOS # 0.2 10*3/uL (0.0-0.4); EOS % 2.4 % (1.0-4.0); HEMATOCRIT 23.8 % (37.0-47.0); LYMPH % 20.4 % (27.0-41.0); MEAN CELL VOLUME 70.4 fl (81.0-99.0); MEAN CORPUSCULAR HGB 20.7 pg (27.0-31.0); MEAN CORPUSCULAR HGB CONC 29.4 g/dl (33.0-37.0); MEAN PLATELET VOLUME 9.5 fl (9.6-12.3); MONO # 0.9 10*3/uL (0.1-1.0); MONO % 9.1 % (3.0-9.0); NEUT # 6.7 10*3/uL (2.3-7.9); NEUT % 67.4 % (47.0-73.0); PLATELET COUNT AUTOMATED 394 10*3/uL (130-400); RED BLOOD COUNT 3.38 10*6/uL (4.10-5.10); RED CELL DISTRI WIDTH 17.6 % (0-14.5); WHITE BLOOD COUNT 9.9 10*3/uL (4.8-10.8)
[2024-02-19 12:15] LABS: ACT PARTIAL THROMBO TIME 23.9 SECONDS (20.0-32.1)
[2024-02-19 12:26] LABS: ALKALINE PHOSPHATASE 50 U/L (46-116); BUN 7 mg/dl (9-23); CHLORIDE 108 mmol/L (98-107); POTASSIUM 3.1 mmol/L (3.4-5.1); SGPT/ALT 8 U/L (5-49)
[2024-02-19] MEDS ORDERED: POTASSIUM CHLORIDE 20 MEQ TAB PO ONE (13:10)
== END 2024-02-19 13:43 | disposition left against medical advice (07) ==
LOC: ED 11:09 → EDHOLD 13:27 → ED 13:27
PROVIDERS: Nurse Practitioner Family
DX: R07.89 Other chest pain (principal); D64.9 Anemia, unspecified; E87.6 Hypokalemia; R06.02 Shortness of breath; Z53.29 Procedure and treatment not carried out because of patient's decision for other reasons; R53.1 Weakness; F41.9 Anxiety disorder, unspecified; G43.909 Migraine, unspecified, not intractable, without status migrainosus; M10.9 Gout, unspecified; E78.00 Pure hypercholesterolemia, unspecified; F17.200 Nicotine dependence, unspecified, uncomplicated; Z87.442 Personal history of urinary calculi; Z88.0 Allergy status to penicillin; Z88.2 Allergy status to sulfonamides; Z88.5 Allergy status to narcotic agent; Z88.8 Allergy status to other drugs, medicaments and biological substances; Z98.890 Other specified postprocedural states

== ENCOUNTER 2024-04-17 13:48 | Inpatient (IN) | payer MEDICAID ==
[~2024-04-17] VITALS: Ht 170.1 cm; Wt 61.5 kg
[2024-04-17] VITALS (19 sets, daily range): BP systolic 95–125; BP diastolic 48–75
[2024-04-17 14:31] LABS: MEAN CELL VOLUME 69.7 fl (81.0-99.0); MEAN CORPUSCULAR HGB 19.4 pg (27.0-31.0); MEAN CORPUSCULAR HGB CONC 27.8 g/dl (33.0-37.0); MEAN PLATELET VOLUME 10.2 fl (9.6-12.3); PLATELET COUNT AUTOMATED 343 10*3/uL (130-400); RED BLOOD COUNT 2.94 10*6/uL (4.10-5.10); RED CELL DISTRI WIDTH 19.6 % (0-14.5); WHITE BLOOD COUNT 14.9 10*3/uL (4.8-10.8)
[2024-04-17 14:33] LABS: HEMATOCRIT 20.5 % (37.0-47.0); MANUAL DIFF REFLEX YES
[2024-04-17 14:40] LABS: ACT PARTIAL THROMBO TIME 24.1 SECONDS (20.0-32.1)
[2024-04-17 14:51] LABS: BUN 6 mg/dl (9-23); CHLORIDE 108 mmol/L (98-107); POTASSIUM 3.2 mmol/L (3.4-5.1)
[2024-04-17 14:59] LABS: PLATELET SUFFICIENCY NORMAL (NORMAL); TOTAL CELLS COUNTED 100 #CELLS
[2024-04-17] MEDS ORDERED: POTASSIUM CHLORIDE 20 MEQ TAB PO ONE (15:45)
[2024-04-17] MEDS ORDERED: SODIUM CHLORIDE 0.9% 500 ML IV ONE ×2 (16:36→19:47)
[2024-04-17] MEDS ORDERED: SODIUM CHLORIDE 0.9% 1,000 ML IV SCH ×2 (17:35→23:40)
[2024-04-17] MEDS ORDERED: HYDROmorphONE Hydrochloride 0.5 MG/0.5 ML SYRINGE IM ONE ×2 (17:55→19:05)
[2024-04-17] MEDS ORDERED: IOHEXOL 300 MG/ML 100 ML VIAL IV ONE (18:00)
[2024-04-17] MEDS ORDERED: Magnesium Hydroxide 30 ML UDC PO PRN (20:40)
[2024-04-17] MEDS ORDERED: Ondansetron Hydrochloride 4 MG/2 ML VIAL IV PRN (20:40)
[2024-04-17] MEDS ORDERED: Acetaminophen/Hydrocodone 5 MG/325 MG TABLET PO PRN (20:40)
[2024-04-17] MEDS ORDERED: ACETAMINOPHEN 650 MG SUPP R PRN (20:40)
[2024-04-17] MEDS ORDERED: BISACODYL 10 MG SUPP R PRN (20:40)
[2024-04-17] MEDS ORDERED: BISACODYL 5 MG TAB PO PRN (20:40)
[2024-04-17] MEDS ORDERED: ACETAMINOPHEN 325 MG TAB PO PRN (20:40)
[2024-04-17] MEDS ORDERED: Meropenem 1 GM in SODIUM CHLORIDE 0.9% 100 ML IV SCH (23:40)
[2024-04-18] VITALS (14 sets, daily range): BP systolic 101–135; BP diastolic 44–63
[2024-04-18] MEDS ORDERED: Pantoprazole Sodium 40 MG VIAL IV SCH (00:05)
[2024-04-18] MEDS ORDERED: HYDROmorphONE Hydrochloride 0.5 MG/0.5 ML SYRINGE IV ONE (00:15)
[2024-04-18 00:36] LABS: BILIRUBIN Negative (Negative); BLOOD Negative (Negative); CLARITY Clear (Clear); COLOR Yellow (Yellow); GLUCOSE Negative (Negative); KETONE Negative (Negative); LEUKO ESTERASE 1+ (Negative); NITRITE Positive (Negative); UROBILINOGEN 0.2 E.U./dl (0.0-1.0)
[2024-04-18 00:41] LABS: HEMATOCRIT 26.5 % (37.0-47.0); MEAN CORPUSCULAR HGB 22.1 pg (27.0-31.0); MEAN CORPUSCULAR HGB CONC 29.4 g/dl (33.0-37.0); MEAN PLATELET VOLUME 10.8 fl (9.6-12.3); PLATELET COUNT AUTOMATED 359 10*3/uL (130-400); RED BLOOD COUNT 3.53 10*6/uL (4.10-5.10); WHITE BLOOD COUNT 15.2 10*3/uL (4.8-10.8)
[2024-04-18 00:46] LABS: MANUAL DIFF REFLEX YES; MEAN CELL VOLUME 75.1 fl (81.0-99.0)
[2024-04-18 00:51] LABS: BACTERIA 4+; WBC 41-50 wbc/hpf (0-5)
[2024-04-18 00:57] LABS: CHLORIDE 110 mmol/L (98-107); POTASSIUM 3.2 mmol/L (3.4-5.1)
[2024-04-18 01:01] LABS: BUN < 5 mg/dl (9-23)
[2024-04-18 01:11] LABS: TOTAL CELLS COUNTED 100 #CELLS
[2024-04-18 01:12] LABS: PLATELET SUFFICIENCY NORMAL (NORMAL); POLYCHROMASIA MODERATE; SPHEROCYTES FEW
[2024-04-18] MEDS ORDERED: SODIUM CHLORIDE 0.9% 1,000 ML IV ONE (02:08)
[2024-04-18] MEDS ORDERED: SUGAMMADEX SODIUM 200 MG/2 ML VIAL IV ONE (02:28)
[2024-04-18] MEDS ORDERED: SODIUM CHLORIDE 0.9% 1,000 ML IV SCH (04:35)
[2024-04-18 07:54] LABS: ALKALINE PHOSPHATASE 39 U/L (46-116); BUN 6 mg/dl (9-23); CHLORIDE 110 mmol/L (98-107); CHOLESTEROL 104 mg/dL (<200); LDL CHOLESTEROL 44 mg/dL (9-159); POTASSIUM 3.1 mmol/L (3.4-5.1); SGPT/ALT 18 U/L (5-49); TOTAL PROTEIN 5.2 gm/dL (6.0-8.0); TRIGLYCERIDES 45 mg/dl (<150)
[2024-04-18] MEDS ORDERED: SODIUM CHLORIDE 0.9% 500 ML IV ONE (07:55)
[2024-04-18 07:56] LABS: VITAMIN D, 25-HYDROXY 29.6 ng/mL (30-100)
[2024-04-18] MEDS ORDERED: HYDROmorphONE Hydrochloride 0.5 MG/0.5 ML SYRINGE IV PRN ×2 (08:00→11:30)
[2024-04-18] MEDS ORDERED: FLUCONAZOLE 200 ML IV SCH (08:00)
[2024-04-18] MEDS ORDERED: POTASSIUM CHLORIDE 40 MEQ in SODIUM CHLORIDE 0.9% 1,000 ML IV SCH (09:00)
[2024-04-18] MEDS ORDERED: SODIUM CHLORIDE 0.9% 100 ML BAG IV ONE ×2 (09:33)
[2024-04-18] MEDS ORDERED: Meropenem 1 GM VIAL IV ONE ×2 (09:33)
[2024-04-18] MEDS ORDERED: Enoxaparin Sodium 40 MG/0.4 ML SYR SC SCH (10:00)
[2024-04-18] MEDS ORDERED: Midazolam Hydrochloride 2 MG/2 ML VIAL IV ONE (13:05)
[2024-04-18] MEDS ORDERED: ROCURONIUM BROMIDE 50 MG/5 ML SYRINGE IV ONE (13:05)
[2024-04-18] MEDS ORDERED: SEVOFLURANE 250 ML BOT INH ONE (13:05)
[2024-04-18] MEDS ORDERED: fentaNYL CITRATE 100 MCG/2 ML VIAL IV ONE (13:05)
[2024-04-18] MEDS ORDERED: HYDROmorphONE Hydrochloride 1 MG/ML SYR IV PRN (15:50)
[2024-04-18] MEDS ORDERED: MAGNESIUM SULFATE 50 ML IV ONE (18:10)
[2024-04-18] MEDS ORDERED: ACETAMINOPHEN 100 ML IV SCH (19:00)
[2024-04-18] MEDS ORDERED: IOHEXOL 9 MG/ML (IODINE) ORAL SOLUTION PO ONE ×3 (19:05→20:20)
[2024-04-18] MEDS ORDERED: IOHEXOL 12 MG/ML (IODINE) ORAL SOLUTION PO ONE (19:30)
[2024-04-19] VITALS (7 sets, daily range): BP systolic 119–140; BP diastolic 57–88
[2024-04-19] MEDS ORDERED: ACETAMINOPHEN 100 ML IV ONE (02:35)
[2024-04-19 06:53] LABS: BASO % 0.2 % (0.0-1.0); EOS % 0.1 % (1.0-4.0); HEMATOCRIT 27.5 % (37.0-47.0); LYMPH % 5.7 % (27.0-41.0); MEAN CELL VOLUME 75.3 fl (81.0-99.0); MEAN CORPUSCULAR HGB CONC 30.5 g/dl (33.0-37.0); MEAN PLATELET VOLUME 9.7 fl (9.6-12.3); MONO # 1.4 10*3/uL (0.1-1.0); MONO % 8.6 % (3.0-9.0); NEUT # 14.3 10*3/uL (2.3-7.9); NEUT % 84.9 % (47.0-73.0); PLATELET COUNT AUTOMATED 299 10*3/uL (130-400); RED BLOOD COUNT 3.65 10*6/uL (4.10-5.10); RED CELL DISTRI WIDTH 22.4 % (0-14.5); WHITE BLOOD COUNT 16.8 10*3/uL (4.8-10.8)
[2024-04-19 07:22] LABS: BUN 13 mg/dl (9-23); CHLORIDE 111 mmol/L (98-107); POTASSIUM 3.4 mmol/L (3.4-5.1)
[2024-04-19] MEDS ORDERED: BISACODYL 10 MG SUPP R ONE (07:25)
[2024-04-19 11:09] LABS: HEMOGOLBIN A1C 5.4 % (4.8-5.6)
[2024-04-20] VITALS: BP 121/65
[2024-04-20 05:38] LABS: BUN 13 mg/dl (9-23); CHLORIDE 111 mmol/L (98-107); POTASSIUM 2.9 mmol/L (3.4-5.1)
[2024-04-20 06:05] LABS: BASO % 0.2 % (0.0-1.0); EOS # 0.2 10*3/uL (0.0-0.4); EOS % 1.1 % (1.0-4.0); HEMATOCRIT 26.5 % (37.0-47.0); LYMPH # 1.1 10*3/uL (1.3-4.4); MEAN CELL VOLUME 75.7 fl (81.0-99.0); MEAN CORPUSCULAR HGB 23.1 pg (27.0-31.0); MEAN CORPUSCULAR HGB CONC 30.6 g/dl (33.0-37.0); MEAN PLATELET VOLUME 10.6 fl (9.6-12.3); MONO # 1.2 10*3/uL (0.1-1.0); MONO % 8.5 % (3.0-9.0); NEUT # 11.7 10*3/uL (2.3-7.9); NEUT % 81.6 % (47.0-73.0); PLATELET COUNT AUTOMATED 371 10*3/uL (130-400); RED CELL DISTRI WIDTH 23.3 % (0-14.5); WHITE BLOOD COUNT 14.3 10*3/uL (4.8-10.8)
[2024-04-20] MEDS ORDERED: POTASSIUM CHLORIDE 40 MEQ in SODIUM CHLORIDE 0.9% 1,000 ML IV ONE (07:30)
[2024-04-20 08:00] VITALS: BP 136/62
[2024-04-20] MEDS ORDERED: HYDROmorphONE Hydrochloride 1 MG/ML SYR IV PRN (10:36)
[2024-04-20 12:00] VITALS: BP 150/80
[2024-04-20] MEDS ORDERED: Acetaminophen/Oxycodone 5 MG/325 MG TABLET PO SCH ×2 (12:00)
[2024-04-20 16:00] VITALS: BP 144/79
[2024-04-20 20:00] VITALS: BP 138/67
[2024-04-20] MEDS ORDERED: busPIRone Hydrochloride 15 MG TAB PO SCH (22:00)
[2024-04-20] MEDS ORDERED: CARIPRAZINE HCL 1.5 MG CAPSULE PO SCH (22:00)
[2024-04-21] VITALS: BP 125/67
[2024-04-21 04:27] LABS: BASO % 0.2 % (0.0-1.0); EOS # 0.3 10*3/uL (0.0-0.4); EOS % 2.7 % (1.0-4.0); HEMATOCRIT 27.3 % (37.0-47.0); LYMPH # 1.6 10*3/uL (1.3-4.4); MEAN CELL VOLUME 76.7 fl (81.0-99.0); MEAN CORPUSCULAR HGB 22.5 pg (27.0-31.0); MEAN CORPUSCULAR HGB CONC 29.3 g/dl (33.0-37.0); MEAN PLATELET VOLUME 9.6 fl (9.6-12.3); MONO # 1.1 10*3/uL (0.1-1.0); MONO % 10.9 % (3.0-9.0); NEUT # 6.9 10*3/uL (2.3-7.9); NEUT % 69.9 % (47.0-73.0); PLATELET COUNT AUTOMATED 354 10*3/uL (130-400); RED BLOOD COUNT 3.56 10*6/uL (4.10-5.10); RED CELL DISTRI WIDTH 23.6 % (0-14.5); WHITE BLOOD COUNT 9.8 10*3/uL (4.8-10.8)
[2024-04-21 04:49] LABS: BUN 9 mg/dl (9-23); CHLORIDE 112 mmol/L (98-107); POTASSIUM 2.8 mmol/L (3.4-5.1)
[2024-04-21] MEDS ORDERED: POTASSIUM CHLORIDE 20 MEQ TAB PO ONE (07:45)
[2024-04-21 08:00] VITALS: BP 137/80
[2024-04-21 12:00] VITALS: BP 139/62
[2024-04-21] MEDS ORDERED: POTASSIUM CHLORIDE 20 MEQ TAB PO SCH (12:00)
[2024-04-21 16:00] VITALS: BP 153/76
[2024-04-21] MEDS ORDERED: Polyethylene Glycol 3350 17 GM PACKET PO PRN (17:50)
[2024-04-21] MEDS ORDERED: DOCUSATE SODIUM 100 MG CAP PO SCH (18:00)
[2024-04-21 20:00] VITALS: BP 137/71
[2024-04-21] MEDS ORDERED: SIMETHICONE 80 MG TAB PO PRN (23:55)
[2024-04-22] VITALS: BP 137/71; BP 137/82
[2024-04-22 03:06] VITALS: BP 142/69
[2024-04-22 03:14] LABS: BASO % 0.3 % (0.0-1.0); EOS # 0.2 10*3/uL (0.0-0.4); EOS % 2.3 % (1.0-4.0); HEMATOCRIT 28.5 % (37.0-47.0); LYMPH # 2.1 10*3/uL (1.3-4.4); MEAN CELL VOLUME 77.9 fl (81.0-99.0); MEAN CORPUSCULAR HGB 22.4 pg (27.0-31.0); MEAN CORPUSCULAR HGB CONC 28.8 g/dl (33.0-37.0); MEAN PLATELET VOLUME 10.4 fl (9.6-12.3); NEUT # 6.9 10*3/uL (2.3-7.9); PLATELET COUNT AUTOMATED 450 10*3/uL (130-400); RED BLOOD COUNT 3.66 10*6/uL (4.10-5.10); WHITE BLOOD COUNT 10.3 10*3/uL (4.8-10.8)
[2024-04-22 03:33] LABS: BUN 6 mg/dl (9-23); CHLORIDE 113 mmol/L (98-107); POTASSIUM 3.4 mmol/L (3.4-5.1)
[2024-04-22] MEDS ORDERED: HYDROmorphONE Hydrochloride 0.5 MG/0.5 ML SYRINGE IV PRN (07:50)
[2024-04-22 08:00] VITALS: BP 138/87
[2024-04-22 12:00] VITALS: BP 133/60
[2024-04-22] MEDS ORDERED: hydrOXYzine pamoate 25 MG CAP PO PRN (13:15)
[2024-04-22] MEDS ORDERED: Acetaminophen/Oxycodone 5 MG/325 MG TABLET PO SCH (14:00)
[2024-04-22 16:00] VITALS: BP 139/68
[2024-04-22 20:00] VITALS: BP 159/85
[2024-04-22 23:09] LABS: BILIRUBIN Negative (Negative); BLOOD 2+ (Negative); CLARITY Clear (Clear); COLOR Yellow (Yellow); GLUCOSE Negative (Negative); KETONE Negative (Negative); LEUKO ESTERASE Trace (Negative); NITRITE Negative (Negative); SPECIFIC GRAVITY 1.015 (1.001-1.030); UROBILINOGEN 0.2 E.U./dl (0.0-1.0)
[2024-04-22 23:43] LABS: BACTERIA TRACE; EPITHELIAL CELLS 16-20; RBC 21-30 rbc/hpf (0-2)
[2024-04-23] VITALS: BP 102/81
[2024-04-23 04:14] LABS: BASO % 0.3 % (0.0-1.0); EOS # 0.3 10*3/uL (0.0-0.4); EOS % 2.9 % (1.0-4.0); HEMATOCRIT 27.4 % (37.0-47.0); LYMPH # 2.6 10*3/uL (1.3-4.4); LYMPH % 23.9 % (27.0-41.0); MEAN CELL VOLUME 76.3 fl (81.0-99.0); MEAN CORPUSCULAR HGB 22.3 pg (27.0-31.0); MEAN CORPUSCULAR HGB CONC 29.2 g/dl (33.0-37.0); MEAN PLATELET VOLUME 10.4 fl (9.6-12.3); MONO # 1.1 10*3/uL (0.1-1.0); MONO % 9.8 % (3.0-9.0); NEUT # 6.8 10*3/uL (2.3-7.9); NEUT % 62.6 % (47.0-73.0); PLATELET COUNT AUTOMATED 410 10*3/uL (130-400); RED BLOOD COUNT 3.59 10*6/uL (4.10-5.10); RED CELL DISTRI WIDTH 24.4 % (0-14.5); WHITE BLOOD COUNT 10.9 10*3/uL (4.8-10.8)
[2024-04-23 04:33] LABS: CHLORIDE 110 mmol/L (98-107); POTASSIUM 3.1 mmol/L (3.4-5.1)
[2024-04-23 04:34] LABS: BUN < 5 mg/dl (9-23)
[2024-04-23 08:00] VITALS: BP 145/67
[2024-04-23] MEDS ORDERED: POTASSIUM CHLORIDE IN WATER 100 ML IV ONE (08:10)
[2024-04-23] MEDS ORDERED: POTASSIUM CHLORIDE 10 MEQ TAB PO ONE (08:35)
[2024-04-23] MEDS ORDERED: K-TAB20 MEQ PO (13:13)
[2024-04-23] MEDS ORDERED: CIPRO500 MG PO (13:13)
[2024-04-23] MEDS ORDERED: FLUCONAZOLE100 MG PO (13:13)
[2024-04-23] MEDS ORDERED: OXYCODONE-ACET1 EAC3 PO (13:13)
[2024-04-23] MEDS ORDERED: PROTONIX20 MG PO (13:34)
== END 2024-04-23 13:53 | disposition home or self-care (01) | DRG 710 ==
LOC: ED 13:48 → EDHOLD 20:25 → 4E 20:25
PROVIDERS: Nurse Practitioner; Student in an Organized Health Care Education/Training Program; ADMIT Internal Medicine; ATTEND Internal Medicine
PROC: 30233N1 Transfusion of Nonautologous Red Blood Cells into Peripheral Vein, Percutaneous Approach (ICD-10-PCS; 2024-04-17)
PROC: 0DJ00ZZ Inspection of Upper Intestinal Tract, Open Approach (ICD-10-PCS; principal; 2024-04-18)
PROC: 0DU707Z Supplement Stomach, Pylorus with Autologous Tissue Substitute, Open Approach (ICD-10-PCS; 2024-04-18)
DX: A41.9 Sepsis, unspecified organism (principal); K25.1 Acute gastric ulcer with perforation; J69.0 Pneumonitis due to inhalation of food and vomit; K65.9 Peritonitis, unspecified; F25.9 Schizoaffective disorder, unspecified; E87.6 Hypokalemia; R65.20 Severe sepsis without septic shock; D50.8 Other iron deficiency anemias; F41.9 Anxiety disorder, unspecified; F17.210 Nicotine dependence, cigarettes, uncomplicated; Z88.6 Allergy status to analgesic agent; Z88.0 Allergy status to penicillin; Z88.2 Allergy status to sulfonamides; Z88.8 Allergy status to other drugs, medicaments and biological substances; Z82.49 Family history of ischemic heart disease and other diseases of the circulatory system; Z71.6 Tobacco abuse counseling

== ENCOUNTER 2024-05-05 13:21 | Inpatient (IN) | payer MEDICAID ==
[~2024-05-05] VITALS: Ht 170.1 cm; Wt 59.0 kg
[~2024-05-05 13:21] MED LIST changes: +FLUCONAZOLE100 MG PO; +OXYCODONE-ACET1 EAC3 PO; +PROTONIX20 MG PO
[2024-05-05 14:10] VITALS: BP 109/60
[2024-05-05] MEDS ORDERED: SODIUM CHLORIDE 0.9% 1,000 ML IV ONE (14:25)
[2024-05-05 14:42] LABS: BASO # 0.1 10*3/uL (0.0-0.1); BASO % 1.2 % (0.0-1.0); EOS # 0.3 10*3/uL (0.0-0.4); EOS % 4.3 % (1.0-4.0); HEMATOCRIT 29.5 % (37.0-47.0); LYMPH # 2.1 10*3/uL (1.3-4.4); LYMPH % 28.5 % (27.0-41.0); MEAN CELL VOLUME 81.7 fl (81.0-99.0); MEAN CORPUSCULAR HGB 22.7 pg (27.0-31.0); MEAN CORPUSCULAR HGB CONC 27.8 g/dl (33.0-37.0); MEAN PLATELET VOLUME 9.9 fl (9.6-12.3); MONO # 0.7 10*3/uL (0.1-1.0); MONO % 10.2 % (3.0-9.0); NEUT % 55.7 % (47.0-73.0); PLATELET COUNT AUTOMATED 590 10*3/uL (130-400); RED BLOOD COUNT 3.61 10*6/uL (4.10-5.10); RED CELL DISTRI WIDTH 25.1 % (0-14.5); WHITE BLOOD COUNT 7.2 10*3/uL (4.8-10.8)
[2024-05-05 14:52] LABS: ACT PARTIAL THROMBO TIME 24.6 SECONDS (20.0-32.1)
[2024-05-05 15:03] LABS: ALKALINE PHOSPHATASE 71 U/L (46-116); BUN 7 mg/dl (9-23); CHLORIDE 107 mmol/L (98-107); LIPASE 30 U/L (12-53); POTASSIUM 3.8 mmol/L (3.4-5.1); SGPT/ALT 21 U/L (5-49); TOTAL PROTEIN 6.2 gm/dL (6.0-8.0)
[2024-05-05 19:38] VITALS: BP 123/66
[2024-05-05] MEDS ORDERED: ACETAMINOPHEN 325 MG TAB PO PRN (20:15)
[2024-05-05] MEDS ORDERED: Ondansetron Hydrochloride 4 MG/2 ML VIAL IV PRN (20:15)
[2024-05-05] MEDS ORDERED: ACETAMINOPHEN 650 MG SUPP R PRN (20:15)
[2024-05-05] MEDS ORDERED: TEMAZEPAM 15 MG CAP PO PRN (20:15)
[2024-05-05] MEDS ORDERED: BISACODYL 5 MG TAB PO PRN (20:15)
[2024-05-05] MEDS ORDERED: MORPHINE Sulfate 2 MG/ML SYR IV PRN (20:15)
[2024-05-05] MEDS ORDERED: Acetaminophen/Hydrocodone 5 MG/325 MG TABLET PO PRN (20:15)
[2024-05-05] MEDS ORDERED: BISACODYL 10 MG SUPP R PRN (20:15)
[2024-05-05] MEDS ORDERED: Magnesium Hydroxide 30 ML UDC PO PRN (20:15)
[2024-05-06] MEDS ORDERED: Enoxaparin Sodium 40 MG/0.4 ML SYR SC SCH (10:00)
== END 2024-05-05 20:54 | disposition left against medical advice (07) | DRG 663 ==
LOC: ED 13:21 → EDHOLD 18:47
PROVIDERS: Internal Medicine; ADMIT Internal Medicine; ATTEND Internal Medicine
DX: D50.9 Iron deficiency anemia, unspecified (principal); F41.9 Anxiety disorder, unspecified; F25.9 Schizoaffective disorder, unspecified; Z53.29 Procedure and treatment not carried out because of patient's decision for other reasons; Z88.4 Allergy status to anesthetic agent; Z88.0 Allergy status to penicillin; Z88.2 Allergy status to sulfonamides; Z88.8 Allergy status to other drugs, medicaments and biological substances; Z91.09 Other allergy status, other than to drugs and biological substances; Z79.899 Other long term (current) drug therapy; Z79.01 Long term (current) use of anticoagulants; Z87.891 Personal history of nicotine dependence; Z82.49 Family history of ischemic heart disease and other diseases of the circulatory system

== ENCOUNTER 2024-08-14 13:59 | Emergency (ER) | payer MEDICAID ==
[2024-08-14] VITALS (14 sets, daily range): BP systolic 97–125; BP diastolic 45–77
[~2024-08-14] VITALS: Ht 170.1 cm; Wt 56.7 kg
[2024-08-14] MEDS ORDERED: SODIUM CHLORIDE 0.9% 500 ML IV ONE ×2 (14:30→15:30)
[2024-08-14] MEDS ORDERED: Metoclopramide Hydrochloride 10 MG/2 ML VIAL IV ONE (14:30)
[2024-08-14 14:41] LABS: HEMATOCRIT 24.2 % (37.0-47.0); MEAN CELL VOLUME 73.8 fl (81.0-99.0); MEAN CORPUSCULAR HGB CONC 28.5 g/dl (33.0-37.0); MEAN PLATELET VOLUME 9.9 fl (9.6-12.3); PLATELET COUNT AUTOMATED 306 10*3/uL (130-400); RED BLOOD COUNT 3.28 10*6/uL (4.10-5.10); RED CELL DISTRI WIDTH 16.4 % (0-14.5); WHITE BLOOD COUNT 10.3 10*3/uL (4.8-10.8)
[2024-08-14 14:45] LABS: MANUAL DIFF REFLEX YES
[2024-08-14 15:01] LABS: ALKALINE PHOSPHATASE 59 U/L (46-116); BUN 9 mg/dl (9-23); CHLORIDE 105 mmol/L (98-107); LIPASE 28 U/L (12-53); POTASSIUM 3.8 mmol/L (3.4-5.1); TOTAL PROTEIN 6.1 gm/dL (6.0-8.0)
[2024-08-14 15:07] LABS: SGPT/ALT < 7 U/L (5-49)
[2024-08-14 15:18] LABS: PLATELET SUFFICIENCY NORMAL (NORMAL); TOTAL CELLS COUNTED 100 #CELLS
[2024-08-14] MEDS ORDERED: ACETAMINOPHEN 325 MG TAB PO ONE (17:35)
[2024-08-14 20:33] LABS: BILIRUBIN Negative (Negative); BLOOD 2+ (Negative); CLARITY Turbid (Clear); COLOR Yellow (Yellow); GLUCOSE Negative (Negative); KETONE Negative (Negative); LEUKO ESTERASE 3+ (Negative); NITRITE Negative (Negative); PH 7.5 (4.5-8.0); UROBILINOGEN 0.2 E.U./dl (0.0-1.0)
[2024-08-14 20:47] LABS: BACTERIA 2+; RBC 21-30 rbc/hpf (0-2); WBC 41-50 wbc/hpf (0-5)
[2024-08-14] MEDS ORDERED: CIPRO500 MG PO (21:25)
== END 2024-08-14 21:38 | disposition left against medical advice (07) ==
LOC: ED 13:59
PROVIDERS: Emergency Medicine
DX: D50.9 Iron deficiency anemia, unspecified (principal); D25.9 Leiomyoma of uterus, unspecified; R51.9 Headache, unspecified; R11.2 Nausea with vomiting, unspecified; R53.1 Weakness; Z90.3 Acquired absence of stomach [part of]; Z88.0 Allergy status to penicillin; Z88.2 Allergy status to sulfonamides; Z88.6 Allergy status to analgesic agent; Z88.5 Allergy status to narcotic agent; Z88.8 Allergy status to other drugs, medicaments and biological substances; Z98.890 Other specified postprocedural states; F17.200 Nicotine dependence, unspecified, uncomplicated

== ENCOUNTER 2024-10-06 18:16 | Emergency (ER) | payer MEDICAID ==
[~2024-10-06] VITALS: Ht 167.6 cm; Wt 59.0 kg
[2024-10-06 18:37] VITALS: BP 121/57
[2024-10-06 19:14] LABS: BASO # 0.1 10*3/uL (0.0-0.1); BASO % 0.8 % (0.0-1.0); EOS # 0.2 10*3/uL (0.0-0.4); EOS % 3.2 % (1.0-4.0); HEMATOCRIT 30.6 % (37.0-47.0); MEAN CELL VOLUME 77.9 fl (81.0-99.0); MEAN CORPUSCULAR HGB 22.4 pg (27.0-31.0); MEAN CORPUSCULAR HGB CONC 28.8 g/dl (33.0-37.0); MEAN PLATELET VOLUME 9.2 fl (9.6-12.3); MONO # 0.7 10*3/uL (0.1-1.0); MONO % 9.7 % (3.0-9.0); NEUT # 4.5 10*3/uL (2.3-7.9); NEUT % 60.6 % (47.0-73.0); PLATELET COUNT AUTOMATED 373 10*3/uL (130-400); RED BLOOD COUNT 3.93 10*6/uL (4.10-5.10); RED CELL DISTRI WIDTH 22.5 % (0-14.5); WHITE BLOOD COUNT 7.4 10*3/uL (4.8-10.8)
[2024-10-06 19:34] LABS: BUN 8 mg/dl (9-23); CHLORIDE 106 mmol/L (98-107); POTASSIUM 3.7 mmol/L (3.4-5.1)
[2024-10-06 19:39] LABS: BETA-HCG, QUANT < 3.0 mIU/mL (3-10)
== END 2024-10-06 20:10 | disposition home or self-care (01) ==
LOC: ED 18:16
PROVIDERS: Physician Assistant Medical
DX: N92.0 Excessive and frequent menstruation with regular cycle (principal); D64.9 Anemia, unspecified; R10.2 Pelvic and perineal pain; Z87.442 Personal history of urinary calculi; F17.200 Nicotine dependence, unspecified, uncomplicated; Z88.0 Allergy status to penicillin; Z88.2 Allergy status to sulfonamides; Z88.6 Allergy status to analgesic agent; Z88.5 Allergy status to narcotic agent; Z88.8 Allergy status to other drugs, medicaments and biological substances; Z98.890 Other specified postprocedural states

== ENCOUNTER 2024-12-10 11:11 | Emergency (ER) | payer MEDICAID ==
[~2024-12-10] VITALS: Ht 167.6 cm; Wt 59.0 kg
[2024-12-10 11:16] VITALS: BP 142/75
[2024-12-10] MEDS ORDERED: predniSONE 20 MG TAB PO ONE (12:00)
[2024-12-10] MEDS ORDERED: LEVOFLOXACIN 750 MG TAB PO ONE (12:00)
[2024-12-10] MEDS ORDERED: diphenhydrAMINE hydrochloride 25 MG CAP PO ONE (12:25)
[2024-12-10] MEDS ORDERED: LEVOFLOXACIN750 M2 PO (12:30)
[2024-12-10] MEDS ORDERED: PREDNISONE50 MG PO (12:30)
== END 2024-12-10 12:39 | disposition home or self-care (01) ==
LOC: ED 11:11
DX: H66.91 Otitis media, unspecified, right ear (principal); R21 Rash and other nonspecific skin eruption; R51.9 Headache, unspecified; D64.9 Anemia, unspecified; F17.200 Nicotine dependence, unspecified, uncomplicated; Z88.0 Allergy status to penicillin; Z88.2 Allergy status to sulfonamides; Z88.6 Allergy status to analgesic agent; Z88.5 Allergy status to narcotic agent; Z88.8 Allergy status to other drugs, medicaments and biological substances; Z98.890 Other specified postprocedural states

== ENCOUNTER 2025-01-31 09:26 | Emergency (ER) | payer MEDICAID ==
[~2025-01-31] VITALS: Wt 59.0 kg
[~2025-01-31 09:26] MED LIST changes: +LEVOFLOXACIN750 M2 PO
[2025-01-31 09:50] VITALS: BP 130/74
[2025-01-31 10:55] LABS: BASO # 0.1 10*3/uL (0.0-0.1); BASO % 0.6 % (0.0-1.0); EOS % 0.2 % (1.0-4.0); HEMATOCRIT 26.8 % (37.0-47.0); MEAN CELL VOLUME 69.4 fl (81.0-99.0); MEAN CORPUSCULAR HGB 19.2 pg (27.0-31.0); MEAN CORPUSCULAR HGB CONC 27.6 g/dl (33.0-37.0); MEAN PLATELET VOLUME 9.4 fl (9.6-12.3); MONO # 0.6 10*3/uL (0.1-1.0); MONO % 5.8 % (3.0-9.0); NEUT # 8.7 10*3/uL (2.3-7.9); NEUT % 81.4 % (47.0-73.0); PLATELET COUNT AUTOMATED 475 10*3/uL (130-400); RED BLOOD COUNT 3.86 10*6/uL (4.10-5.10); RED CELL DISTRI WIDTH 17.7 % (0-14.5); WHITE BLOOD COUNT 10.6 10*3/uL (4.8-10.8)
[2025-01-31 11:14] LABS: BUN 10 mg/dl (9-23); CHLORIDE 105 mmol/L (98-107); POTASSIUM 3.6 mmol/L (3.4-5.1)
[2025-01-31] MEDS ORDERED: MEDROL DOSEPAK4 MG PO (12:49)
== END 2025-01-31 13:02 | disposition home or self-care (01) ==
LOC: ED 09:26
PROVIDERS: Internal Medicine
DX: B34.9 Viral infection, unspecified (principal); Z20.822 Contact with and (suspected) exposure to COVID-19; H91.90 Unspecified hearing loss, unspecified ear; F17.200 Nicotine dependence, unspecified, uncomplicated; Z88.0 Allergy status to penicillin; Z88.2 Allergy status to sulfonamides; Z88.6 Allergy status to analgesic agent; Z88.5 Allergy status to narcotic agent; Z79.2 Long term (current) use of antibiotics; Z79.899 Other long term (current) drug therapy; Z87.42 Personal history of other diseases of the female genital tract

== ENCOUNTER 2025-04-23 07:44 | Emergency (ER) | payer MEDICAID ==
[~2025-04-23] VITALS: Ht 170.1 cm; Wt 59.0 kg
[2025-04-23 07:55] VITALS: BP 133/77
[2025-04-23] MEDS ORDERED: CLINDAMYCIN HC300 MG PO (08:07)
== END 2025-04-23 08:18 | disposition home or self-care (01) ==
LOC: ED 07:44
DX: L03.213 Periorbital cellulitis (principal); F17.200 Nicotine dependence, unspecified, uncomplicated; Z79.899 Other long term (current) drug therapy; Z88.0 Allergy status to penicillin; Z88.2 Allergy status to sulfonamides; Z88.5 Allergy status to narcotic agent; Z88.6 Allergy status to analgesic agent; Z88.8 Allergy status to other drugs, medicaments and biological substances; Z98.890 Other specified postprocedural states

== ENCOUNTER 2025-05-09 15:42 | Emergency (ER) | payer MEDICAID ==
[~2025-05-09] VITALS: Ht 170.1 cm; Wt 59.0 kg
[2025-05-09 15:52] VITALS: BP 122/86
[2025-05-09 17:05] LABS: MEAN CELL VOLUME 66.4 fl (81.0-99.0); MEAN CORPUSCULAR HGB 18.0 pg (27.0-31.0); MEAN PLATELET VOLUME 9.7 fl (9.6-12.3); NUCLEATED RED BLOOD CELL 0.0 % (0.0-0.0); NUCLEATED RED BLOOD CELL 0.0 10*3/uL (0.0-0.0); PLATELET COUNT AUTOMATED 348 10*3/uL (130-400); RED CELL DISTRI WIDTH 18.8 % (0-14.5)
[2025-05-09 17:10] LABS: MANUAL DIFF REFLEX YES
[2025-05-09 17:20] LABS: BUN 10 mg/dl (9-23)
[2025-05-09 17:28] LABS: PLATELET SUFFICIENCY NORMAL (NORMAL)
[2025-05-09] MEDS ORDERED: CLINDAMYCIN HC300 MG PO (17:43)
[2025-05-09] MEDS ORDERED: CLINDAMYCIN HCL 300 MG CAPSULE PO ONE (17:45)
== END 2025-05-09 17:52 | disposition left against medical advice (07) ==
LOC: ED 15:42
PROVIDERS: Nurse Practitioner Family
DX: L03.213 Periorbital cellulitis (principal); D64.9 Anemia, unspecified; F32.A Depression, unspecified; F41.9 Anxiety disorder, unspecified; F17.200 Nicotine dependence, unspecified, uncomplicated; Z53.9 Procedure and treatment not carried out, unspecified reason; Z79.899 Other long term (current) drug therapy; Z88.0 Allergy status to penicillin; Z88.1 Allergy status to other antibiotic agents; Z88.2 Allergy status to sulfonamides; Z88.5 Allergy status to narcotic agent; Z88.6 Allergy status to analgesic agent; Z88.8 Allergy status to other drugs, medicaments and biological substances

== ENCOUNTER 2025-05-17 11:30 | Inpatient (IN) | payer MEDICAID ==
[2025-05-17] VITALS (23 sets, daily range): BP systolic 99–133; BP diastolic 42–88
[~2025-05-17] VITALS: Ht 170.1 cm; Wt 57.6 kg
[2025-05-17 12:34] LABS: MEAN CELL VOLUME 67.1 fl (81.0-99.0); MEAN CORPUSCULAR HGB 17.9 pg (27.0-31.0); MEAN PLATELET VOLUME 9.1 fl (9.6-12.3); NUCLEATED RED BLOOD CELL 0.0 % (0.0-0.0); NUCLEATED RED BLOOD CELL 0.0 10*3/uL (0.0-0.0); PLATELET COUNT AUTOMATED 335 10*3/uL (130-400); RED CELL DISTRI WIDTH 19.3 % (0-14.5)
[2025-05-17 12:39] LABS: MANUAL DIFF REFLEX YES
[2025-05-17 12:46] LABS: ACT PARTIAL THROMBO TIME 24.1 SECONDS (20.0-32.1)
[2025-05-17 12:51] LABS: BUN 13 mg/dl (9-23)
[2025-05-17 12:58] LABS: BILIRUBIN Negative (Negative); BLOOD 2+ (Negative); CLARITY Cloudy (Clear); COLOR Yellow (Yellow); KETONE Trace (Negative); LEUKO ESTERASE 3+ (Negative); NITRITE Positive (Negative); PH 6.5 (4.5-8.0); SPECIFIC GRAVITY 1.020 (1.001-1.030); UROBILINOGEN 1.0 E.U./dl (0.0-1.0)
[2025-05-17 13:00] LABS: BASOPHILS 2 % (0-1); PLATELET SUFFICIENCY NORMAL (NORMAL)
[2025-05-17 13:06] LABS: BACTERIA 4+; EPITHELIAL CELLS 16-20; RBC 31-40 rbc/hpf (0-2); WBC TNTC wbc/hpf (0-5)
[2025-05-17] MEDS ORDERED: ACETAMINOPHEN 325 MG TAB PO PRN (13:30)
[2025-05-17] MEDS ORDERED: BISACODYL 5 MG TAB PO PRN (13:30)
[2025-05-17] MEDS ORDERED: HYDROXYZINE HCL25 MG PO (13:39)
[2025-05-17] MEDS ORDERED: SODIUM CHLORIDE 0.9% 1,000 ML IV ONE (14:09)
[2025-05-17 14:25] LABS: LDH 152 U/L (120-246); SGPT/ALT 8 U/L (5-49)
[2025-05-17 17:41] LABS: RETICULOCYTE % 0.36 % (0.50-2.50)
[2025-05-17 17:42] LABS: MEAN CELL VOLUME 69.1 fl (81.0-99.0); MEAN CORPUSCULAR HGB 18.9 pg (27.0-31.0); MEAN PLATELET VOLUME 9.3 fl (9.6-12.3); NUCLEATED RED BLOOD CELL 0.0 % (0.0-0.0); NUCLEATED RED BLOOD CELL 0.0 10*3/uL (0.0-0.0); PLATELET COUNT AUTOMATED 342 10*3/uL (130-400); RED CELL DISTRI WIDTH 20.3 % (0-14.5)
[2025-05-17 17:46] LABS: MANUAL DIFF REFLEX YES
[2025-05-17 18:28] LABS: BASOPHILS 1 % (0-1)
[2025-05-17 18:33] LABS: PLATELET SUFFICIENCY NORMAL (NORMAL)
[2025-05-17] MEDS ORDERED: SODIUM CHLORIDE 0.9% 500 ML IV ONE ×2 (19:00→19:06)
[2025-05-17] MEDS ORDERED: Acetaminophen/Hydrocodone 5 MG/325 MG TABLET PO ONE (20:10)
[2025-05-17] MEDS ORDERED: CARIPRAZINE HCL 4.5 MG PO SCH (22:00)
[2025-05-17] MEDS ORDERED: hydrOXYzine hydrochloride 50 MG/ML VIAL IM SCH (22:00)
[2025-05-17] MEDS ORDERED: busPIRone Hydrochloride 15 MG TAB PO SCH (22:00)
[2025-05-17] MEDS ORDERED: CARIPRAZINE HCL PO SCH (22:00)
[2025-05-18] VITALS: BP 142/67
[2025-05-18 00:30] LABS: BASO # 0.1 10*3/uL (0.0-0.1); BASO % 0.7 % (0.0-1.0); EOS # 0.4 10*3/uL (0.0-0.4); EOS % 4.1 % (1.0-4.0); MEAN CELL VOLUME 70.6 fl (81.0-99.0); MEAN CORPUSCULAR HGB 20.6 pg (27.0-31.0); MEAN PLATELET VOLUME 9.0 fl (9.6-12.3); MONO # 1.0 10*3/uL (0.1-1.0); MONO % 11.7 % (3.0-9.0); NEUT # 4.6 10*3/uL (2.3-7.9); NEUT % 54.9 % (47.0-73.0); NUCLEATED RED BLOOD CELL 0.0 % (0.0-0.0); NUCLEATED RED BLOOD CELL 0.0 10*3/uL (0.0-0.0); PLATELET COUNT AUTOMATED 318 10*3/uL (130-400); RED CELL DISTRI WIDTH 20.8 % (0-14.5)
[2025-05-18 00:56] LABS: BUN 11 mg/dl (9-23)
[2025-05-18 06:10] LABS: BASO # 0.1 10*3/uL (0.0-0.1); BASO % 0.9 % (0.0-1.0); EOS # 0.3 10*3/uL (0.0-0.4); EOS % 4.2 % (1.0-4.0); MEAN CELL VOLUME 70.5 fl (81.0-99.0); MEAN CORPUSCULAR HGB 20.2 pg (27.0-31.0); MEAN PLATELET VOLUME 9.8 fl (9.6-12.3); MONO # 0.9 10*3/uL (0.1-1.0); MONO % 10.6 % (3.0-9.0); NEUT # 5.2 10*3/uL (2.3-7.9); NEUT % 64.0 % (47.0-73.0); NUCLEATED RED BLOOD CELL 0.0 % (0.0-0.0); NUCLEATED RED BLOOD CELL 0.0 10*3/uL (0.0-0.0); PLATELET COUNT AUTOMATED 345 10*3/uL (130-400); RED CELL DISTRI WIDTH 20.8 % (0-14.5)
[2025-05-18 07:03] LABS: BUN 9 mg/dl (9-23); FREE T4 0.84 ng/dl (0.89-1.76); LDL CHOLESTEROL 69 mg/dL (9-159); SGPT/ALT 9 U/L (5-49)
[2025-05-18 10:04] LABS: VITAMIN D, 25-HYDROXY 31.6 ng/mL (30-100)
== END 2025-05-18 06:50 | disposition left against medical advice (07) | DRG 663 ==
LOC: ED 11:30 → EDHOLD 13:04 → 4E 15:45
PROVIDERS: Nurse Practitioner Family; Student in an Organized Health Care Education/Training Program; ADMIT Internal Medicine; ATTEND Internal Medicine
PROC: 30233N1 Transfusion of Nonautologous Red Blood Cells into Peripheral Vein, Percutaneous Approach (ICD-10-PCS; principal; 2025-05-17)
DX: D50.9 Iron deficiency anemia, unspecified (principal); E44.1 Mild protein-calorie malnutrition; E83.51 Hypocalcemia; G44.89 Other headache syndrome; F41.9 Anxiety disorder, unspecified; R60.0 Localized edema; N30.01 Acute cystitis with hematuria; F17.200 Nicotine dependence, unspecified, uncomplicated; Z88.0 Allergy status to penicillin; Z82.49 Family history of ischemic heart disease and other diseases of the circulatory system; Z88.2 Allergy status to sulfonamides; Z88.8 Allergy status to other drugs, medicaments and biological substances; Z88.5 Allergy status to narcotic agent; Z87.11 Personal history of peptic ulcer disease; Z68.1 Body mass index [BMI] 19.9 or less, adult

== ENCOUNTER 2025-05-29 12:58 | Emergency (ER) | payer MEDICAID ==
[~2025-05-29] VITALS: Ht 170.1 cm; Wt 59.0 kg
[2025-05-29 13:21] VITALS: BP 127/60
[2025-05-29] MEDS ORDERED: PREDNISONE20 M1 PO (15:05)
== END 2025-05-29 15:13 | disposition home or self-care (01) ==
LOC: ED 12:58
DX: L30.9 Dermatitis, unspecified (principal); F41.9 Anxiety disorder, unspecified; F17.200 Nicotine dependence, unspecified, uncomplicated; Z88.0 Allergy status to penicillin; Z88.2 Allergy status to sulfonamides; Z88.6 Allergy status to analgesic agent; Z88.8 Allergy status to other drugs, medicaments and biological substances; Z88.5 Allergy status to narcotic agent; Z87.42 Personal history of other diseases of the female genital tract

== ENCOUNTER 2025-08-03 10:13 | Emergency (ER) | payer MEDICAID ==
[~2025-08-03] VITALS: Ht 170.1 cm; Wt 59.0 kg
[2025-08-03 10:28] VITALS: BP 121/65
[2025-08-03] MEDS ORDERED: Metoclopramide Hydrochloride 10 MG/2 ML VIAL IV ONE (10:35)
[2025-08-03] MEDS ORDERED: diphenhydrAMINE hydrochloride 50 MG/ML VIAL IV ONE (10:35)
[2025-08-03] MEDS ORDERED: Ondansetron Hydrochloride 4 MG/2 ML VIAL IV ONE ×2 (10:35→11:45)
[2025-08-03] MEDS ORDERED: SODIUM CHLORIDE 0.9% 1,000 ML IV ONE (10:35)
[2025-08-03 10:46] LABS: BASO # 0.1 10*3/uL (0.0-0.1); BASO % 0.9 % (0.0-1.0); EOS # 0.3 10*3/uL (0.0-0.4); EOS % 3.0 % (1.0-4.0); MEAN CELL VOLUME 71.2 fl (81.0-99.0); MEAN CORPUSCULAR HGB 19.7 pg (27.0-31.0); MEAN PLATELET VOLUME 9.9 fl (9.6-12.3); MONO # 0.9 10*3/uL (0.1-1.0); MONO % 9.4 % (3.0-9.0); NEUT # 6.7 10*3/uL (2.3-7.9); NEUT % 72.7 % (47.0-73.0); NUCLEATED RED BLOOD CELL 0.0 % (0.0-0.0); NUCLEATED RED BLOOD CELL 0.0 10*3/uL (0.0-0.0); PLATELET COUNT AUTOMATED 457 10*3/uL (130-400); RED CELL DISTRI WIDTH 20.4 % (0-14.5)
[2025-08-03] MEDS ORDERED: Water, Sterile 10 ML VIAL ONE (11:06)
[2025-08-03 11:07] LABS: BUN 7 mg/dl (9-23); SGPT/ALT 11 U/L (5-49)
[2025-08-03] MEDS ORDERED: HYDROmorphONE Hydrochloride 0.5 MG/0.5 ML SYRINGE IV ONE (11:45)
[2025-08-03] MEDS ORDERED: POTASSIUM CHLORIDE IN WATER 100 ML IV ONE (11:50)
[2025-08-03] MEDS ORDERED: IOHEXOL 300 MG/ML 100 ML VIAL IV ONE (12:00)
[2025-08-03] MEDS ORDERED: REGLAN10 M1 PO (14:08)
[2025-08-03] MEDS ORDERED: Ondansetron4 MG PO (14:08)
[2025-08-03] MEDS ORDERED: CARAFATE1 G1 PO (14:08)
[2025-08-03] MEDS ORDERED: PROTONIX40 MG PO (14:08)
[2025-08-03] MEDS ORDERED: Acetaminophen/Hydrocodone Bi 3 TAB PACK PO PRN (14:10)
[2025-08-03] MEDS ORDERED: IRON325 M1 PO (14:15)
== END 2025-08-03 14:14 | disposition left against medical advice (07) ==
LOC: ED 10:13
PROVIDERS: Emergency Medicine
DX: K25.9 Gastric ulcer, unspecified as acute or chronic, without hemorrhage or perforation (principal); R18.8 Other ascites; K59.00 Constipation, unspecified; R10.13 Epigastric pain; D50.9 Iron deficiency anemia, unspecified; N83.8 Other noninflammatory disorders of ovary, fallopian tube and broad ligament; F17.200 Nicotine dependence, unspecified, uncomplicated; Z88.0 Allergy status to penicillin; Z88.2 Allergy status to sulfonamides; Z88.6 Allergy status to analgesic agent; Z88.5 Allergy status to narcotic agent; Z88.8 Allergy status to other drugs, medicaments and biological substances; Z79.899 Other long term (current) drug therapy

== ENCOUNTER 2025-08-11 14:14 | Emergency (ER) | payer MEDICAID ==
[~2025-08-11] VITALS: Ht 170.1 cm; Wt 59.0 kg
[~2025-08-11 14:14] MED LIST changes: +CARAFATE1 G1 PO; +IRON325 M1 PO; +Ondansetron4 MG PO; +PROTONIX40 MG PO; +REGLAN10 M1 PO
[2025-08-11] MEDS ORDERED: SODIUM CHLORIDE 0.9% 1,000 ML IV ONE (15:00)
[2025-08-11 15:24] LABS: MEAN CELL VOLUME 71.1 fl (81.0-99.0); MEAN CORPUSCULAR HGB 19.8 pg (27.0-31.0); MEAN PLATELET VOLUME 9.6 fl (9.6-12.3); NUCLEATED RED BLOOD CELL 0.0 % (0.0-0.0); NUCLEATED RED BLOOD CELL 0.0 10*3/uL (0.0-0.0); PLATELET COUNT AUTOMATED 560 10*3/uL (130-400); RED CELL DISTRI WIDTH 20.3 % (0-14.5)
[2025-08-11 15:39] LABS: MANUAL DIFF REFLEX YES
[2025-08-11 15:53] LABS: BUN 10 mg/dl (9-23); SGPT/ALT < 7 U/L (5-49)
[2025-08-11 15:55] LABS: PLATELET SUFFICIENCY HIGH (NORMAL)
[2025-08-11] MEDS ORDERED: HYDROmorphONE Hydrochloride 0.5 MG/0.5 ML SYRINGE IV ONE (16:10)
[2025-08-11] MEDS ORDERED: Ondansetron Hydrochloride 4 MG/2 ML VIAL IV ONE (16:10)
[2025-08-11 17:41] VITALS: BP 127/59
[2025-08-11 19:00] LABS: BILIRUBIN Negative (Negative); BLOOD Negative (Negative); CLARITY Cloudy (Clear); COLOR Yellow (Yellow); KETONE Negative (Negative); LEUKO ESTERASE 2+ (Negative); NITRITE Positive (Negative); PH 6.5 (4.5-8.0); SPECIFIC GRAVITY 1.020 (1.001-1.030); UROBILINOGEN 0.2 E.U./dl (0.0-1.0)
[2025-08-11 19:12] LABS: BACTERIA 4+; WBC 41-50 wbc/hpf (0-5)
[2025-08-11] MEDS ORDERED: MACROBID100 M1 PO (19:38)
== END 2025-08-11 20:21 | disposition left against medical advice (07) ==
LOC: ED 14:14
DX: D64.9 Anemia, unspecified (principal); N39.0 Urinary tract infection, site not specified; R11.2 Nausea with vomiting, unspecified; F17.200 Nicotine dependence, unspecified, uncomplicated; Z79.899 Other long term (current) drug therapy; Z88.0 Allergy status to penicillin; Z88.1 Allergy status to other antibiotic agents; Z88.2 Allergy status to sulfonamides; Z88.5 Allergy status to narcotic agent; Z88.8 Allergy status to other drugs, medicaments and biological substances; Z98.890 Other specified postprocedural states

== ENCOUNTER 2025-08-31 07:03 | Emergency (ER) | payer MEDICAID ==
[~2025-08-31] VITALS: Ht 170.1 cm; Wt 59.0 kg
[~2025-08-31 07:03] MED LIST changes: +MACROBID100 M1 PO
[2025-08-31] MEDS ORDERED: SODIUM CHLORIDE 0.9% 500 ML IV ONE (07:30)
[2025-08-31] MEDS ORDERED: Ondansetron Hydrochloride 4 MG TAB PO ONE (07:30)
[2025-08-31 07:44] LABS: MEAN CELL VOLUME 66.7 fl (81.0-99.0); MEAN CORPUSCULAR HGB 18.3 pg (27.0-31.0); MEAN PLATELET VOLUME 9.4 fl (9.6-12.3); NUCLEATED RED BLOOD CELL 0.0 % (0.0-0.0); NUCLEATED RED BLOOD CELL 0.0 10*3/uL (0.0-0.0); PLATELET COUNT AUTOMATED 480 10*3/uL (130-400); RED CELL DISTRI WIDTH 18.5 % (0-14.5)
[2025-08-31 07:49] LABS: MANUAL DIFF REFLEX YES
[2025-08-31 08:05] LABS: BASOPHILS 1 % (0-1)
[2025-08-31 08:06] LABS: BUN 10 mg/dl (9-23); PLATELET SUFFICIENCY HIGH (NORMAL); SGPT/ALT 9 U/L (5-49)
[2025-08-31 08:07] LABS: STOMATOCYTE FEW
[2025-08-31] MEDS ORDERED: SODIUM CHLORIDE 0.9% 100 ML BAG IV ONE (10:25)
[2025-08-31] MEDS ORDERED: IOHEXOL 350 MG/ML 100 ML VIAL IV ONE (10:25)
[2025-08-31 10:58] VITALS: BP 125/75
[2025-09-07] MEDS ORDERED: Carafate1 GM PO (08:26)
[2025-09-07] MEDS ORDERED: PROTONIX40 MG PO (08:26)
== END 2025-08-31 11:28 | disposition left against medical advice (07) ==
LOC: ED 07:03
PROVIDERS: Student in an Organized Health Care Education/Training Program
DX: R07.89 Other chest pain (principal); D64.9 Anemia, unspecified; F17.210 Nicotine dependence, cigarettes, uncomplicated; Z88.0 Allergy status to penicillin; Z88.2 Allergy status to sulfonamides; Z88.5 Allergy status to narcotic agent; Z88.8 Allergy status to other drugs, medicaments and biological substances